=== PATIENT | female | born 1960 | race Caucasian/White ===

== ENCOUNTER 2020-07-17 13:17 | Outpatient (CLI) | payer OTHER, SELFPAY ==
--- NOTE | 2020-07-17 15:00 | NEURO_ITS ---
Impression: # Complains of upper extremity pain, left more than right. # No Carpal Tunnel Syndrome. # No ulnar neuropathy. # Cross innervation median to ulnar noted. # Normal needle/EMG exam. Nerve Conduction Studies Anti Sensory Summary Table Stim Site NR Peak (ms) P-T Amp (?V) Site1 Site2 Delta-P (ms) Dist (cm) Myke (m/s) Left Median Anti Sensory (2-3nd Digit) Wrist 2.9 87.2 Wrist 2-3nd Digit 2.9 14.0 48 Wrist 2.8 79.3 Wrist 2-3nd Digit 2.9 14.0 48 Right Median Anti Sensory (2-3nd Digit) Wrist 3.3 52.5 Wrist 2-3nd Digit 3.3 14.0 42 Wrist 3.3 85.9 Wrist 2-3nd Digit 3.3 14.0 42 Left Radial Anti Sensory (Base 1st Digit) Wrist 1.8 57.2 Wrist Base 1st Digit 1.8 0.0 Right Radial Anti Sensory (Base 1st Digit) Wrist 1.9 26.2 Wrist Base 1st Digit 1.9 0.0 Left Ulnar Anti Sensory (5th Digit) Wrist 2.3 22.8 Wrist 5th Digit 2.3 14.0 61 Right Ulnar Anti Sensory (5th Digit) Wrist 2.2 42.2 Wrist 5th Digit 2.2 14.0 64 Motor Summary Table Stim Site NR Onset (ms) O-P Amp (mV) Site1 Site2 Delta-0 (ms) Dist (cm) Myke (m/s) Left Median Motor (Abd Poll Brev) Wrist 2.9 4.6 Elbow Wrist 4.2 26.0 62 Elbow 7.1 3.1 Right Median Motor (Abd Poll Brev) Wrist 3.3 1.6 Elbow Wrist 4.9 27.0 55 Elbow 8.2 0.8 ELB/ADM Wrist 0.2 0.0 ELB/ADM 3.1 2.6 Left Ulnar Motor (Abd Dig Minimi) Wrist 2.6 6.8 A Elbow Wrist 4.4 27.0 61 A Elbow 7.0 7.2 Right Ulnar Motor (Abd Dig Minimi) Wrist 2.7 6.5 A Elbow Wrist 4.7 27.0 57 A Elbow 7.4 5.2 B Elbow Wrist 1.8 0.0 B Elbow 0.9 6.3 F Wave Studies NR F-Lat (ms) L-R F-Lat (ms) Left Median (Mrkrs) (Abd Poll Brev) 24.64 1.32 Right Median (Mrkrs) (Abd Poll Brev) 25.96 1.32 Left Ulnar (Mrkrs) (Abd Dig Min) 25.86 0.11 Right Ulnar (Mrkrs) (Abd Dig Min) 25.75 0.11 EMG Side Muscle Nerve Root Ins Act Fibs Amp Dur Recrt Comment Right 1stDorInt Ulnar C8-T1 Nml Nml Nml Nml Nml Right Ext Indicis Radial (Post Int) C7-8 Nml Nml Nml Nml Nml Right Ext Digitorum Radial (Post Int) C7-8 Nml Nml Nml Nml Nml Right BrachioRad Radial C5-6 Nml Nml Nml Nml Nml Right PronatorTeres Median C6-7 Nml Nml Nml Nml Nml Right Abd Poll Brev Median C8-T1 Nml Nml Nml Nml Nml Left 1stDorInt Ulnar C8-T1 Nml Nml Nml Nml Nml Left Ext Indicis Radial (Post Int) C7-8 Nml Nml Nml Nml Nml Left Ext Digitorum Radial (Post Int) C7-8 Nml Nml Nml Nml Nml Left BrachioRad Radial C5-6 Nml Nml Nml Nml Nml Left PronatorTeres Median C6-7 Nml Nml Nml Nml Nml Left Abd Poll Brev Median C8-T1 Nml Nml Nml Nml Nml MTDD
== END 2020-07-17 13:18 | disposition home or self-care (01) ==
PROVIDERS: PCP Family Medicine; Visit Provider Physician Assistant
DX: M79.641 Pain in right hand (principal); M79.642 Pain in left hand
CPT/HCPCS: 95886; 95911

== ENCOUNTER 2021-05-06 12:30 | Outpatient (RCR) | payer OTHER, SELFPAY ==
--- NOTE | 2021-04-21 16:08 | PTOPEVAL ---
Thank you for referring Diane Sykes to [facility].? The patient is scheduled to be seen for therapy?1 x/week for 5 weeks. Please review, sign, date and return this plan of care JANELL. I agree with and certify that the following plan of care is medically necessary. Referring Physician Date Attending Provider: Pcao Murphy MD Diagnosis cervicalgia and left UE pain Onset 1.5 yrs Subjective Information She has noticed increased left Query Text:As Reported By Patient/ UE pain at all times. She c/o Family pins/needles of left UE to wrist. She purchased a wrist splint but the symptoms increased. 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 She reports pain and difficulty with lifting with left UE, sleeping, daily task. She reports the pain limits her shoulder motion. She is limited with prolonged UE use or overhead task. She performs hip and leg stretches for her back. Diagnostic Tests X-Rays For This Problem Yes: no abnormalities of neck noted Pain Assessment Left Arm(s) Reported Pain Level 6 Pain Description Burning,Numbness,Radiating, Tightness,Tingling Pain Frequency Chronic,Continuous Lowest Pain Intensity 3 Greatest Pain Intensity 8 Pain Aggravating Factors ADL's,Exercise/Activity, Lifting,Prolonged Position Pain Behaviors Anxious Cervical and Lumbar ROM Cervical ROM Cervical Flexion (0-60) 50:Active in Degrees Cervical Extension (0-70) 50:Active in Degrees Cervical Lateral Flexion Right (0-50) 25:Active in Degrees Cervical Lateral Flexion Left (0-50) 25:Active in Degrees Cervical Rotation Right (0-90) 38:Active in Degrees Cervical Rotation Left (0-90) 35:Active in Degrees Cervical ROM Comments tightness with all neck motions Upper Extremity Range of Motion General Upper Extremity Range of Motion Reason Not Measured WNL/Left,WNL/Right Cervical and Lumbar Muscle Testing Cervical Muscle Testing Cervical Flexion 4 Good Cervical Extension 4 Good Cervical Lateral Flexion Right 4 Good Cervical Lateral Flexion Left 4 Good Deep Cervical Flexion 5 sec with poor control Cervical Strength no pain with cervical
--- NOTE | 2021-05-06 13:32 | PCPTNOTE ---
Pt has canceled her remaining visits due to f/u with Md and continued UE symptoms. Will plan to DC her chart.
--- NOTE | 2021-05-09 10:28 | PCPTNOTE ---
Admitting Provider: Attending Provider: Paco Murphy MD Patient:Diane Sykes Date of :1960 Physical Therapy Discharge Summary Patient has not returned for any further treatments since 05/06/2021, therefore she will be discharged at this time. She called and requested her additional therapy visits to be cancelled due to continued symptoms and planned to follow with doctor. Patient?s initial visit was on 04/21/2021 14:00 and she had a total of 3 visits. The goals have been not met due to limited therapy visits. Thank you for referring this patient to [facility]. Please review, sign, date and return this discharge summary JANELL. I have been updated about the patient's current status and I agree with discharge from the above service at this time. Referring Physician Date
== END 2021-05-12 09:14 | disposition home or self-care (01) ==
LOC: ANHPT 12:30
PROVIDERS: PCP Family Medicine; Visit Provider Orthopaedic Surgery
DX: M54.2 Cervicalgia (principal); M79.602 Pain in left arm
CPT/HCPCS: 97014; 97110; 97140; 97162; G0283

== ENCOUNTER → 2022-05-25 08:48 | Outpatient (CLI) | payer MEDICARE, MEDICAID, SELFPAY ==
--- NOTE | ~2022-05-25 | MR_ITS ---
MRI of the left knee Clinical history: Pain Technique: Coronal proton density and proton density-weighted images, sagittal proton-density and T2 fat-sat images, and axial proton-density fat-saturated images were acquired. Findings: Anterior and posterior cruciate ligament are intact. Medial collateral ligament and the lat eral collateral ligament complex are intact. Popliteus tendon is intact. There is probable vertical tear at the posterior root of the medial meniscus, with additional intrasu bstance degenerative signal of the medial meniscus. No lateral meniscal tear identified. There is moderate chondral thinning at the medial joint line with mild reactive marrow edema at the m edial corner of the medial tibial plateau. Articular cartilage in the lateral compartment and along t he femoral trochlea is intact. There is focal moderate chondromalacia of the patellar apex with focal subchondral reactive marrow edema. Extensor mechanism is intact. Moderate to large joint effusion is present. No Alfaro's cyst. IMPRESSION: Vertical tear to posterior to the medial meniscus. Mild degenerative changes/chondromalacia at the medial joint line and of the patella, as detailed abo ve. Moderate to large joint effusion. Reviewed, dictated and finalized at location . [employer] IMPRESSION: Vertical tear to posterior to the medial meniscus. Mild degenerative changes/chondromalacia at the medial joint line and of the pa tella, as detailed above. Moderate to large joint effusion.
== END ==
PROVIDERS: PCP Orthopaedic Surgery; Visit Provider Orthopaedic Surgery
DX: M25.562 Pain in left knee (principal); S83.242A Other tear of medial meniscus, current injury, left knee, initial encounter; X58.XXXA Exposure to other specified factors, initial encounter
CPT/HCPCS: 73721

== ENCOUNTER 2022-06-02 00:46 | Day surgery (SDC) | payer MEDICARE, MEDICAID, SELFPAY ==
[2022-05-27 10:23] VITALS: BMI 29.2
--- NOTE | 2022-05-27 10:31 | PC.NURSE ---
Report to the Outpatient Waiting Room, entrance under the green pavilion located off [facility], at time 1030 on date 06/02/22. Planned Procedure Time: 1230. Time changes happen often and if your time is changed the preop area will call you the afternoon before. - You and your visitor will be asked to self-screen and do not enter if you have any COVID symptoms. - Only one visitor is requested with a max of two and NO children visitors are allowed at this time. - The patient visitor may be requested to leave or wait in car when not with patient due to distancing restrictions. - A mask is REQUIRED within the hospital. Patients may have clear liquids (water, carbonated beverages, clear teas, apple juice) until 3 hours prior to surgery with a maximum of 20 ounces. - No food from midnight until time of surgery Take the following medications with a SIP of water the morning of surgery: DIGOXIN, METOPROLOL, PAIN PILL/BACLOFEN IF NEEDED Medications to discontinue per physician: VITAMINS/SUPPLEMENTS Date to take last dose: 05/29/22 Please no make-up, nail malay, hairspray, perfume, deodorant, or body powder the day of surgery. No jewelry (including any body piercings) or valuables the day of surgery, leave them at home. Please take a shower or bath the night before, or the morning of, surgery with an antibacterial soap. Wear comfortable, loose fitting clothing. - Jewelry must be removed prior to entering the operating room. Rings and piercings that are not removed may be cut off. - The hospital will not accept responsibility for valuables. - Please leave all valuables, including medications, at home the day of surgery. If you are going home after surgery, a licensed coal tram driver must drive you home. - NO public transportation without another adult if you receive anesthesia. - We recommend that an adult stay with you for 24 hours following discharge. - We also recommend that you do not drive, make important decision, drink alcoholic beverages, or take any drugs that were not prescribed by your health care provider for at least 24 hours after your discharge time. Follow any additional instructions given to you from your surgeon. If you or anyone in your household have experienced Covid symptoms in the past week, please notify your surgeon or the nurse liaison at the phone number below for possible testing. Telephone instructions given to PT - ANNA STRANGE and asked if any additional questions and then verbalized understanding. Patient advised to call surgeon office or pre surgery nurse liaison [phone] if any additional questions.
[2022-06-02] VITALS (8 sets, daily range): BP systolic 131–156; BP diastolic 66–85; PULSE 60–84; RESP 12–18; TEMP 36.6–36.9; O2SAT 97–100
--- NOTE | 2022-06-02 10:24 | ECG_ITS ---
Measurements Intervals Warren Rate: 58 P: -1 CA: 156 QRS: -7 QRSD: 92 T: -4 QT: 424 QTc: 418 Interpretive Statements SINUS BRADYCARDIA NONSPECIFIC ST AND T-WAVE ABNORMALITY ABNORMAL ECG NO PREVIOUS ECG AVAILABLE FOR COMPARISON Electronically Signed On 06-02-2022 15:35:09 [facility] by Luis Rivera M.D.
[2022-06-02] MEDS: KETOROLAC 15 MG/ML VIAL (*BKC) IV PUSH (11:19)
--- NOTE | 2022-06-02 11:29 | WPDHPUPDATE1 ---
History and Physical Update Update Date/Time: 06/02/22 11:29 History and Physical has been reviewed, including an updated exam of the patient. There are NO changes in the patient's condition. Risks, benefits, and alternatives have been discussed and questions answered. Patient agrees to proceed with procedure.
[2022-06-02] MEDS: SCOPOLAMINE 1.5 MG PATCH TRANSDERM (12:00)
--- NOTE | 2022-06-02 12:02 | WPDANESEPPF ---
Anes - Initial Pre Proc Eval Procedure: Operation Date: 06/02/22 12:30 Proposed Procedures p Left Knee Arthroscopy with Meniscectomy - Paco Murphy MD Date/Time: 06/02/22 12:02 Surgeon: Paco Murphy MD Pre Op Diagnosis: left knee medial meniscal tear Patient Data Age: 61 Gender: F Height: 1.57 m Weight: 72.6 kg Last Vital Signs Temp 36.9 C 06/02/22 10:57 Pulse 60 06/02/22 10:57 Resp 16 06/02/22 10:57 BP 148/77 H 06/02/22 10:57 Pulse Ox 100 06/02/22 10:57 O2 Del Method Room Air 06/02/22 10:57 Allergies Allergy/AdvReac Type Severity Reaction Status Date / Time gabapentin Allergy Severe disorientat Verified 06/02/22 10:46 ion morphine AdvReac Intermediate Nausea and Verified 06/02/22 10:46 Vomiting codeine AdvReac Unknown Nausea Verified 06/02/22 10:46 cortisone AdvReac Unknown Nausea Verified 06/02/22 10:46 erythromycin base AdvReac Unknown Nausea Verified 06/02/22 10:46 Penicillins AdvReac Unknown Nausea Verified 06/02/22 10:46 Home Medications Medication Instructions Recorded Confirmed Type baclofen 10 mg tablet 10 mg PO TID 06/15/19 06/02/22 History cholecalciferol (vitamin D3) 50 2,000 unit PO DAILY 06/15/19 06/02/22 History mcg (2,000 unit) tablet hydrocodone 5 mg-acetaminophen 325 1 tablet PO Q6H PRN Pain 06/15/19 06/02/22 History mg tablet ascorbic acid (vitamin C) 500 mg 500 mg PO DAILY 08/01/19 06/02/22 History capsule aspirin 81 mg tablet,delayed 81 mg PO DAILY 08/01/19 06/02/22 History release (Adult Low Dose Aspirin) biotin 10,000 mcg capsule 10,000 mcg PO DAILY 08/01/19 06/02/22 History mecobalamin (vitamin B12) 1,000 1,000 mcg PO DAILY 08/01/19 06/02/22 History mcg chewable tablet vitamin E (dl, acetate) 180 mg 400 unit PO DAILY 08/01/19 06/02/22 History (400 unit) capsule eqnswlze-lhzigm-auuae extract 5 1 cap PO DAILY 01/17/20 06/02/22 History mg-6 mg-150 mg capsule (Fruit and Vegetable Daily) lansoprazole 30 mg capsule,delayed 30 mg PO DAILY #90 caps 03/10/21 06/02/22 Rx release digoxin 125 mcg (0.125 mg) tablet 125 mcg PO DAILY #90 tabs 10/01/21 06/02/22 Rx (Digox) metoprolol tartrate 50 mg tablet 25 mg PO BID #180 tabs 11/30/21 06/02/22 Rx atorvastatin 40 mg tablet See Rx Instructions .Route 05/28/22 06/02/22 Rx .COMPLEX #90 tabs Laboratory Tests 06/02/22 11:10 Digoxin Pending Patient hx anesthesia problems: none Family hx anesthesia problems: none Results Review: All pre-operative results and documents have been reviewed as part of the pre-operative evaluation. [facility] Past Medical History Medical History (Updated 05/26/22 @ 11:09 by Paco Murphy MD) Anxiety Chronic back pain Chronic left SI joint pain Congenital fusion of sacroiliac joint De Quervain's tenosynovitis, right DJD (degenerative joint disease), lumbar Heartburn Herniated disc Hormone replacement therapy Hyperlipidemia Hypertension Lumbosacral radiculopathy due to degenerative joint disease of spine Pain in left wrist Primary hypertension SVT (supraventricular tachycardia) Tear of medial meniscus of left knee Surgical History Surgical History H/O section 1977,1979,1984 H/O: hysterectomy 1991 History of abdominoplasty 2001 History of carpal tunnel release 1996 History of foot surgery Hammer toe 1994 History of sacrocolpopexy 07/2016- History of tonsillectomy 1974 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istory Social History (Reviewed 05/26/22 @ 11:0
[2022-06-02] MEDS: ceFAZolin 2 GM/D5W 50 ML 2 GM/50 ML BAG IVPB (12:11)
[2022-06-02 12:15] LABS: Digoxin 0.5 ng/mL (0.8-2.0)
[2022-06-02] MEDS: LIDOCAINE HCL 1% PF 30 ML VIAL INFILTRATE (12:38)
[2022-06-02] MEDS: TRANEXAMIC ACID 1,000 MG/10 ML AMPUL 1000 MG INFILTRATE (12:49)
--- NOTE | 2022-06-02 13:22 | P.OP_ITS ---
Procedure Note - Detailed Date of Procedure 06/02/22 Pre-op Diagnosis left knee medial meniscal tear Post-op Diagnosis Other ( extensive synovitis left knee) Procedure Performed left knee arthroscopy with extensive synovectomy Surgeon Paco Murphy MD Anesthesia General Description of Procedure The patient was identified and proper site identified and she was taken to the operating room, transferred to the OR table placing her supine taking care to pad the torso and extremities. After general anesthetic induction and intubation, a nonsterile tourniquet was placed high on the left thigh. The left lower extremity was positioned, prepped and draped in usual sterile fashion. 10 cc of 1% lidocaine was injected into the subcutaneous tissue in the area of the portals at start of the procedure, and an additional 10 at the end. The portals were established and the arthroscopy was carried out. The lateral articular and meniscal cartilage was inspected and noted be in good condition. Anterior posterior cruciate ligaments were in continuity. Grade 2 and early grade 3 degenerative changes noted on the undersurface of the patella. Femoral trochlea was in fairly decent shape. Medially there was extensive grade 3 changes of the weight-bearing portion medial femoral condyle and grade 2 and th ree changes in the central part of the tibial plateau. Medial meniscus was probed and noted to be stable. Adjacent to the posterior root of the medial meniscus was a nodule of inflamed synovial tissue. The notch and medial gutter as well as the anterior portion of the medial compartment all had abundant inflamed synovium. The extremity was exsanguinated the tourniquet was inflated to 300 millimeters of mercury remaining up for about 16 minutes. The notch, posterior portion of the medial compartment at the meniscal root, gutters and anterior portion medial compartment were all systematically debrided with the shaver removing the inflamed synovial tissue. The knee was flushed with a copious amount of arthroscopic fluid and equipment was removed. The knee was injected with 1 gram of tranexamic acid. Portals were closed with three O nylon suture and a sterile dressing was applied. Tourniquet was released. She tolerated the procedure well, was awakened, extubated and taken to recovery area in stable condition. There were no known intraoperative complications. Estimated blood loss was negligible; she received perioperative antibiotics. Estimated Blood Loss 10 Tourniquet Time 16 Drains No Packing No Pathology None sent Complications No immediate complications Condition Stable Disposition PACU [facility] Billing Surgery - Charge Forward: Surgery Billing ([id number])
[2022-06-02] MEDS: fentaNYL CITRATE INJ (*CRX) 100 MCG/2 ML VIAL 25 MCG IV PUSH ×4 (13:24→13:51)
--- NOTE | 2022-06-02 13:43 | SUR.PHASEI ---
1343 - family member updated
[2022-06-02] MEDS: LACTATED RINGERS 1,000 ML 30 ML IV CONT (14:07)
[2022-06-02] MEDS: oxyCODONE HCL (*CRX) 5 MG TAB IR PO (14:25)
== END 2022-06-02 15:33 | disposition home or self-care (01) ==
PROVIDERS: Anesthesiology; PCP Family Medicine; Visit Provider Orthopaedic Surgery
PROC: (CPT 29870; principal; 2022-06-02 12:30)
DX: M65.862 Other synovitis and tenosynovitis, left lower leg (principal); I10 Essential (primary) hypertension; E78.5 Hyperlipidemia, unspecified; I47.1 Supraventricular tachycardia; G89.4 Chronic pain syndrome; Z87.891 Personal history of nicotine dependence; Z79.891 Long term (current) use of opiate analgesic; Z79.82 Long term (current) use of aspirin
CPT/HCPCS: 29875; 36415; 80162; 93005; A9270; J0690; J1100; J1170; J1885; J2250; J2405; J2704; J3010; J7120

== ENCOUNTER 2022-06-23 12:39 | Outpatient (CLI) | payer MEDICARE, MEDICAID, SELFPAY ==
--- NOTE | ~2022-06-23 | US_ITS ---
EXAMINATION: US venous doppler [facility] DATE: 06/23/2022 13:30 INDICATION: Other specified soft tissue disorders, left lower limb swelling TECHNIQUE: Duncan scale images without and with compression and Doppler images of the left lower extrem ity veins were obtained. COMPARISON: None FINDINGS: The left common femoral vein, profunda femoral vein, femoral vein, popliteal vein, peroneal trunk, posterior tibial veins, and greater saphenous vein are patent. IMPRESSION: 1. Patent left lower extremity veins. No evidence of deep venous thrombosis. Reviewed, dictated and finalized at location L. [employer]
== END 2022-06-23 12:40 | disposition home or self-care (01) ==
LOC: ANHIMG 12:41
PROVIDERS: PCP Family Medicine; Visit Provider Family Medicine
DX: M79.89 Other specified soft tissue disorders (principal); Z98.890 Other specified postprocedural states
CPT/HCPCS: 93971

== ENCOUNTER 2022-07-02 09:00 | Outpatient (RCR) | payer MEDICARE, MEDICAID, SELFPAY ==
--- NOTE | 2022-06-09 16:28 | PTOPEVAL1 ---
Assessment and note entered by Yair Messina, PT Evaluation Information Assessment Status Evaluation Diagnosis L knee scope 06/02/22 Subjective Information Patient reports since early April she has been having L knee pain causing her to see her doctor. After steroids and some knee aspirations she got an MRI that showed probable meniscal damage. Patient elected for a L knee scope. Patient reports that no meniscal damage was seen endoscopy and it is probably a RA issue with a sample of her fluid being drawn to check for inflammation markers. Patient comes in with crutches which she reports she was using prior to the surgery. Reported Pain Level Pain Score 5: Self Report Additional Pain Score Comments Patient reports faithfully icing and elevating her leg Assessment PT Clinical Summary Jackie is a 61 year old female coming to the clinic for post op range of motion L knee 0-28-45 degrees and strengthening of the L knee 3+/5 for knee extension, 4-/5 for knee flexion, and to progress away from the crutches. Physical therapy will work on improving her range of motion and strength while doing modalities for pain control and education on gait training. Plan of Care Interventions Electrical Stimulation,Gait Training,Hot Pack/Cold Pack,Manual Therapy,Neuro Re-education,Patient/ Caregiver Education,Therapeutic Activities, Therapeutic Exercise,Ultrasound PT Services Indicated Yes Treatment Frequency and 2x/wk for 4 weeks Duration These treatments will address the objective and functional deficits as defined above. The patient will be advanced safely and appropriately in order for the patient to progress towards his/her prior level of function. Additional exercises will be introduced and as well as a comprehensive home exercise program upon discharge, if needed, ?to ensure carryover of functional gains achieved in the clinic. This treatment plan has been reviewed and agreement upon by the patient.
--- NOTE | 2022-07-02 10:46 | PTOPDC ---
Assessment and note entered by Yair Messina, PT Evaluation Information Assessment Status Discharge Diagnosis L knee scope 06/02/23 Subjective Information Patient reports a lot of improvement in the last week. Also reports that she saw Dr. Murphy yesterday and he informed her it will probably be a slow heal, but he is happy with the progress she has made so far. Going to [place] this weekend and will be down there for 10 days. Reported Pain Level Pain Score 3: Self Report Assessment PT Clinical Summary Jackie is a 61 year old female coming to the clinic for L knee strengthening and range of motion following a L knee scope on 06/02/22. She has attended 7 visits and met her strengthening and exercise goals. She still needs to work on edema and range of motion, but only missing goals by a few degrees. She will be discharged to her new [facility] as she will be out of town for close to the next 2 weeks and if still having an issue afterwards she reports she can always ask for more therapy from the MD. Plan of Care PT Services Indicated No Treatment Frequency and discharge from skilled physical therapy. Duration
== END 2022-08-31 08:36 | disposition home or self-care (01) ==
LOC: ANHPT 09:00
PROVIDERS: PCP Family Medicine; Visit Provider Orthopaedic Surgery
DX: Z48.89 Encounter for other specified surgical aftercare (principal); Z98.890 Other specified postprocedural states
CPT/HCPCS: 97014; 97110; 97112; 97116; 97161; G0283

== ENCOUNTER 2022-08-03 01:12 | Day surgery (SDC) | payer MEDICARE, MEDICAID, SELFPAY ==
[2022-07-21 14:11] VITALS: BMI 28.4
--- NOTE | 2022-07-21 14:17 | SUR.PREOP ---
Report to the Outpatient Waiting Room, entrance under the green pavilion located off [facility], at time _0900 on date _08/03/22 . Planned Procedure TimE. 1100 Time changes happen often and if your time is changed the preop area will call you the afternoon before. - You and your visitor will be asked to self-screen and do not enter if you have any COVID symptoms. - Only one visitor is requested with a max of two and NO children visitors are allowed at this time. - The patient visitor may be requested to leave or wait in car when not with patient due to distancing restrictions. - A mask is optional within the hospital at this time. Patients may have clear liquids (water, carbonated beverages, clear teas, apple juice) until 3 hours prior to surgery with a maximum of 20 ounces. - No food from midnight until time of surgery - Infants may have breast milk until 4 hours before surgery, formula 6 hours prior to surgery. - Children will be allowed to drink immediately following surgery. If applicable, please bring a bottle or sippy cup to assist with drinking. Juice, water, soda, and popsicles are readily available. For infants on formula, please bring formula the day of surgery. Pacifiers are allowed. Take the following medications with a SIP of water the morning of surgery: __METOPROLOL,DULOXETINE,DIGOXIN,NORCO IF NEEDED DO NOT STOP ANY OF YOUR OTHER PRESCRIPTION MEDICATIONS PRIOR TO SURGERY ?EXCEPT THE FOLLOWING Medications to discontinue per physician ___VITAMIN SUPPLEMENTS Date to take last dose_07/31/22 Please no make-up, nail namibian, hairspray, perfume, deodorant, or body powder the day of surgery. No jewelry (including any body piercings) or valuables the day of surgery, leave them at home. Please take a shower or bath the night before, or the morning of, surgery with an antibacterial soap. Wear comfortable, loose fitting clothing. Children are encouraged to wear pajamas. - Jewelry must be removed prior to entering the operating room. Rings and piercings that are not removed may be cut off. - The hospital will not accept responsibility for valuables. - Please leave all valuables, including medications, at home the day of surgery. If you are going home after surgery, a licensed driver helper must drive you home. - NO public transportation without another adult if you receive anesthesia. - We recommend that an adult stay with you for 24 hours following discharge. - We also recommend that you do not drive, make important decision, drink alcoholic beverages, or take any drugs that were not prescribed by your health care provider for at least 24 hours after your discharge time. For Pediatric surgeries, we recommend two adults accompany the child home. Follow any additional instructions given to you from your surgeon. If you or anyone in your household have experienced Covid symptoms in the past week, please notify your surgeon or the nurse liaison at the phone number below for possible testing. Telephone instructions given to SEBAS STRANGE and asked if any additional questions and then verbalized understanding. Patient advised to call surgeon office or pre surgery nurse liaison [phone] if any additional questions.
--- NOTE | 2022-08-02 07:39 | WPDANESEPPF ---
Anes - Initial Pre Proc Eval Procedure: Operation Date: 08/03/22 11:00 Proposed Procedures p Right First Dorsal Compartment Release - Paco Murphy MD Date/Time: 08/02/22 07:39 Surgeon: Paco Murphy MD Pre Op Diagnosis: de quervain's right wrist Patient Data Age: 61 Gender: F Height: 1.57 m Weight: 70.45 kg Allergies Allergy/AdvReac Type Severity Reaction Status Date / Time gabapentin Allergy Severe disorientat Verified 07/29/22 08:25 ion morphine AdvReac Intermediate Nausea and Verified 07/29/22 08:25 Vomiting codeine AdvReac Mild Nausea Verified 07/29/22 08:25 cortisone AdvReac Mild Nausea Verified 07/29/22 08:25 erythromycin base AdvReac Mild Nausea Verified 07/29/22 08:25 Penicillins AdvReac Mild Nausea Verified 07/29/22 08:25 Home Medications Medication Instructions Recorded Confirmed Type baclofen 10 mg tablet 10 mg PO TID 06/15/19 07/29/22 History cholecalciferol (vitamin D3) 50 2,000 unit PO DAILY 06/15/19 07/29/22 History mcg (2,000 unit) tablet hydrocodone 5 mg-acetaminophen 325 2 tablet PO TID PRN Pain 06/15/19 07/29/22 History mg tablet ascorbic acid (vitamin C) 500 mg 500 mg PO DAILY 08/01/19 07/29/22 History capsule aspirin 81 mg tablet,delayed 81 mg PO DAILY 08/01/19 07/29/22 History release (Adult Low Dose Aspirin) biotin 10,000 mcg capsule 10,000 mcg PO DAILY 08/01/19 07/29/22 History mecobalamin (vitamin B12) 1,000 1,000 mcg PO DAILY 08/01/19 07/29/22 History mcg chewable tablet vitamin E (dl, acetate) 180 mg 400 unit PO DAILY 08/01/19 07/29/22 History (400 unit) capsule syksldet-jimojq-dwqdm extract 5 1 cap PO DAILY 01/17/20 07/29/22 History mg-6 mg-150 mg capsule (Fruit and Vegetable Daily) atorvastatin 40 mg tablet See Rx Instructions .Route 06/17/22 07/29/22 Rx .COMPLEX #90 tabs digoxin 125 mcg (0.125 mg) tablet 125 mcg PO DAILY #90 tabs 01/04/23 02/15/23 Rx (Digox) lansoprazole 30 mg capsule,delayed 30 mg PO DAILY #90 caps 06/17/22 07/29/22 Rx release duloxetine 30 mg capsule,delayed 60 mg PO DAILY 07/01/22 07/29/22 History release (Cymbalta) metoprolol tartrate 50 mg tablet 50 mg PO DAILY 07/21/22 07/29/22 History Patient hx anesthesia problems: none Family hx anesthesia problems: none Results Review: All pre-operative results and documents have been reviewed as part of the pre-operative evaluation. [facility] Past Medical History Medical History Anxiety Chronic back pain Chronic left SI joint pain Chronic narcotic use Congenital fusion of sacroiliac joint De Quervain's tenosynovitis, right DJD (degenerative joint disease), lumbar Heartburn Herniated disc Hormone replacement therapy Hyperlipidemia Hypertension Lumbosacral radiculopathy due to degenerative joint disease of spine Pain in left wrist Primary hypertension SVT (supraventricular tachycardia) Tear of medial meniscus of left knee Surgical History Surgical History H/O arthroscopic knee surgery H/O section 1977,1979,1984 H/O: hysterectomy 1991 History of abdominoplasty 2001 History of carpal tunnel release 1996 History of foot surgery Hammer toe 1994 History of sacrocolpopexy 07/2016- History of tonsillectomy 1974 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
[2022-08-03 09:06] VITALS: BP 126/87; PULSE 58; RESP 16; TEMP 36.4; O2SAT 100
[2022-08-03] MEDS: LACTATED RINGERS 1,000 ML 30 ML IV CONT (09:35)
[2022-08-03] MEDS: ACETAMINOPHEN 500 MG TABLET 1000 MG PO (09:38)
[2022-08-03] MEDS: KETOROLAC 15 MG/ML VIAL (*BKC) IV PUSH (09:39)
[2022-08-03] MEDS: SCOPOLAMINE 1.5 MG PATCH TRANSDERM (09:41)
--- NOTE | 2022-08-03 10:06 | WPDHPUPDATE1 ---
History and Physical Update Update Date/Time: 08/03/22 10:06 History and Physical has been reviewed, including an updated exam of the patient. There are NO changes in the patient's condition. Risks, benefits, and alternatives have been discussed and questions answered. Patient agrees to proceed with procedure.
[2022-08-03] MEDS: ceFAZolin 2 GM/D5W 50 ML 2 GM/50 ML BAG IVPB (10:44)
[2022-08-03] MEDS: BUPIVACAINE/EPINEPHRINE 0.5% 10 ML VIAL 5 ML INFILTRATE (11:06)
[2022-08-03 11:15] VITALS: BP 133/62; PULSE 60; RESP 12; O2SAT 100
--- NOTE | 2022-08-03 11:17 | W.PM.PROC2 ---
Procedure Note - Detailed Date of Procedure 08/03/22 Pre-op Diagnosis de quervain's right wrist Post-op Diagnosis Same Procedure Performed Right first dorsal compartment release Surgeon Paco Murphy MD Anesthesia MAC and Local Description of Procedure The patient was identified and proper site identified. She was taken to the operating room and transferred to the OR table placing her supine taking care to pad the torso and extremities. A nonsterile tourniquet was placed high on the right arm which was prepped and draped in usual sterile fashion. She was administered IV sedation. Several cc of 0.5% Marcaine and epinephrine solution was infiltrated into the subcutaneous tissue over the right radial styloid. The extremity was exsanguinated and the tourniquet was inflated to 250 mmHg remaining up for approximately seven minutes. A longitudinal incision was made over the radial styloid and the subcutaneous tissue was bluntly dissected protecting neurovascular structures. The first dorsal compartment was identified and then transected in line with the tendons releasing the contents. The tendons were delivered into the wound to verify the adequacy of the release. The wound was irrigated with sterile saline. Hemostasis was carried out. Skin edges were reapproximated with 4-0 Prolene suture and Steri-Strips. Sterile dressing was applied. Tourniquet was released. She tolerated procedure well and was transferred back to the cart and taken to the recovery area in stable condition. There were no known intraoperative complications. Estimated blood loss was []. Perioperative antibiotics were administered. Estimated Blood Loss 1 Tourniquet Time 7 Drains No Packing No Pathology None sent Complications No immediate complications Condition Critical Disposition PACU [facility] Billing Surgery - Charge Forward: Surgery Billing ([id number])
[2022-08-03 11:40] VITALS: BP 132/65; PULSE 47; RESP 12
[2022-08-03 12:05] VITALS: BP 130/61; PULSE 48; RESP 12
== END 2022-08-03 13:25 | disposition home or self-care (01) ==
PROVIDERS: PCP Family Medicine; Visit Provider Orthopaedic Surgery
PROC: (CPT 25000; principal; 2022-08-03 11:00)
DX: M65.4 Radial styloid tenosynovitis [de Quervain] (principal); I10 Essential (primary) hypertension; E78.5 Hyperlipidemia, unspecified; I47.1 Supraventricular tachycardia; F41.9 Anxiety disorder, unspecified; Z87.891 Personal history of nicotine dependence
CPT/HCPCS: 25000; A9270; J0690; J1885; J2250; J2405; J2704; J3010; J7120

== ENCOUNTER 2022-11-05 06:22 | Day surgery (SDC) | payer MEDICARE, MEDICAID, SELFPAY ==
[2022-10-28 12:33] VITALS: BMI 28.6
--- NOTE | 2022-11-04 15:15 | PM.HPGS ---
History of Present Illness History of Present Illness Consent: Risks, benefits, and alternatives have been discussed and questions answered. Patient agrees to proceed with procedure. Chief complaint: Neoplasm Screening Narrative: Diane Sykes is a 62 year old female who is referred for colon cancer screening. she has had polyps removed in the past. Her last colonoscopy was 5 years ago. Review of Systems Review of Systems: All systems reviewed & are unremarkable except as noted in HPI and below PMFSH Past Medical History Medical History Anxiety Chronic back pain Chronic left SI joint pain Chronic narcotic use Congenital fusion of sacroiliac joint De Quervain's tenosynovitis, right First dorsal compartment release, 08/03/[address] Jeffrey LUNA (degenerative joint disease), lumbar Heartburn Herniated disc Hormone replacement therapy Hyperlipidemia Hypertension Lumbosacral radiculopathy due to degenerative joint disease of spine Pain in left wrist Primary hypertension SVT (supraventricular tachycardia) Tear of medial meniscus of left knee Surgical History Surgical History H/O arthroscopic knee surgery H/O section 1977,1979,1984 H/O: hysterectomy 1991 History of abdominoplasty 2001 History of carpal tunnel release 1996 History of foot surgery Hammer toe 1994 History of sacrocolpopexy 07/2016- History of tonsillectomy 1974 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istory Social History Smoking packs per day: 1 Smoking cigarettes per day: 20.0 Years smoked: 30 Smoking pack-years: 30.00 Smoking status: Former smoker Tobacco type: cigarettes Second hand tobacco smoke exposure: No Smoking end date: 06/14/05 Additional smoking assessment comments: cigarettes 1ppd x30 years Alcohol intake: current Alcohol use details: occassionally Substance use: never Substance use type: does not use Other substance usage details: PATIENT GETS THIS FROM PAIN MANAGEMENT. Lack of Transportation: No Lack of Food: Never True Current Housing: I Have Housing Concerned About Future Housing: No Difficulty Paying Gas/Electric Bills: No Difficulty Paying for Meds: No Currently Unemployed: No Education: Bachelor's Degree Difficulty w/ Childcare or Family Care: No Living arrangements: alone Additional living arrangements comments: Spouse Occupation/Education: unemployed Gender identity (if verbalized by the patient): Female Spiritual care concerns: No Meds Home Medications and Allergies Home Medications Medication Instructions Recorded Confirmed Type baclofen 10 mg tablet 10 mg PO TID 06/15/19 11/05/22 History cholecalciferol (vitamin D3) 50 2,000 unit PO DAILY 06/15/19 11/05/22 History mcg (2,000 unit) tablet hydrocodone 5 mg-acetaminophen 325 2 tablet PO TID PRN Pain 06/15/19 11/05/22 History mg tablet ascorbic acid (vitamin C) 500 mg 500 mg PO DAILY 08/01/19 11/05/22 History capsule aspirin 81 mg tablet,delayed 81 mg PO DAILY 08/01/19 11/05/22 History release (Adult Low Dose Aspirin) biotin 10,000 mcg capsule 10,000 mcg PO DAILY 08/01/19 11/05/22 History mecobalamin (vitamin B12) 1,000 1,000 mcg PO DAILY 08/01/19 11/05/22 History mcg chewable tablet vitamin E (dl, acetate) 180 mg 400 unit PO DAILY 08/01/19 11/05/22 History (400 unit) capsule digoxin 125 mcg (0.125 mg) tablet 125 mcg PO DAILY #90 tabs
[2022-11-05 07:48] VITALS: BP 173/93; PULSE 55; RESP 14; TEMP 36.6; O2SAT 99; BMI 28.3
[2022-11-05] MEDS: LACTATED RINGERS 1,000 ML 150 ML IV CONT (07:51)
[2022-11-05] MEDS: ONDANSETRON INJ 4 MG/2 ML VIAL IV PUSH (07:54)
--- NOTE | 2022-11-05 07:57 | WPDANESEPPF ---
Anes - Initial Pre Proc Eval Procedure: Operation Date: 11/05/22 08:30 Proposed Procedures p Screening Colonoscopy - Imtiaz Miller MD Date/Time: 11/05/22 07:57 Surgeon: Imtiaz Miller MD Pre Op Diagnosis: Neoplasm Screening Patient Data Age: 62 Gender: F Height: 1.57 m Weight: 70.2 kg Last Vital Signs Temp 36.6 C 11/05/22 07:48 Pulse 55 L 11/05/22 07:48 Resp 14 11/05/22 07:48 BP 173/93 H 11/05/22 07:48 Pulse Ox 99 11/05/22 07:48 O2 Del Method Room Air 11/05/22 07:48 Allergies Allergy/AdvReac Type Severity Reaction Status Date / Time gabapentin Allergy Severe disorientat Verified 11/05/22 07:43 ion morphine AdvReac Intermediate Nausea and Verified 11/05/22 07:43 Vomiting codeine AdvReac Mild Nausea Verified 11/05/22 07:43 cortisone AdvReac Mild Nausea Verified 11/05/22 07:43 erythromycin base AdvReac Mild Nausea Verified 11/05/22 07:43 Penicillins AdvReac Mild Nausea Verified 11/05/22 07:43 Home Medications Medication Instructions Recorded Confirmed Type baclofen 10 mg tablet 10 mg PO TID 06/15/19 11/05/22 History cholecalciferol (vitamin D3) 50 2,000 unit PO DAILY 06/15/19 11/05/22 History mcg (2,000 unit) tablet hydrocodone 5 mg-acetaminophen 325 2 tablet PO TID PRN Pain 06/15/19 11/05/22 History mg tablet ascorbic acid (vitamin C) 500 mg 500 mg PO DAILY 08/01/19 11/05/22 History capsule aspirin 81 mg tablet,delayed 81 mg PO DAILY 08/01/19 11/05/22 History release (Adult Low Dose Aspirin) biotin 10,000 mcg capsule 10,000 mcg PO DAILY 08/01/19 11/05/22 History mecobalamin (vitamin B12) 1,000 1,000 mcg PO DAILY 08/01/19 11/05/22 History mcg chewable tablet vitamin E (dl, acetate) 180 mg 400 unit PO DAILY 08/01/19 11/05/22 History (400 unit) capsule digoxin 125 mcg (0.125 mg) tablet 125 mcg PO DAILY #90 tabs 06/17/22 11/05/22 Rx (Digox) lansoprazole 30 mg capsule,delayed 30 mg PO DAILY #90 caps 06/17/22 11/05/22 Rx release metoprolol tartrate 50 mg tablet 50 mg PO DAILY 07/21/22 11/05/22 History hydroxyzine HCl 25 mg tablet 25 mg PO QID PRN Anxiety 08/03/22 11/05/22 History atorvastatin 40 mg tablet See Rx Instructions .Route 09/10/22 11/05/22 Rx .COMPLEX #100 tabs duloxetine 30 mg capsule,delayed 90 mg PO DAILY 10/14/22 11/05/22 History release (Cymbalta) Patient hx anesthesia problems: none Family hx anesthesia problems: none Results Review: All pre-operative results and documents have been reviewed as part of the pre-operative evaluation. [facility] Past Medical History Medical History Anxiety Chronic back pain Chronic left SI joint pain Chronic narcotic use Congenital fusion of sacroiliac joint De Quervain's tenosynovitis, right First dorsal compartment release, 08/03/[address] Jeffrey LUNA (degenerative joint disease), lumbar Heartburn Herniated disc Hormone replacement therapy Hyperlipidemia Hypertension Lumbosacral radiculopathy due to degenerative joint disease of spine Pain in left wrist Primary hypertension SVT (supraventricular tachycardia) Tear of medial meniscus of left knee Surgical History Surgical History H/O arthroscopic knee surgery H/O section 1977,1979,1984 H/O: hysterectomy 1991 History of abdominoplasty 2001 History of carpal tunnel release 1996 History of foot surgery Hammer toe 1994 History of sacrocolpopexy 07/2016- History of tonsillectomy 1974 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
[2022-11-05 08:52] VITALS: BP 122/66; PULSE 61; RESP 16; O2SAT 99
--- NOTE | 2022-11-05 09:01 | WPDANESPN ---
Anes - Prog Note Post-Op Date/Time: 11/05/22 09:01 Cardiovascular status: normal Respiratory status: normal Airway patency: baseline Mental status: baseline Post-Op hydration status: normal Vital Signs: Last Vital Signs Temp 36.6 C 11/05/22 07:48 Pulse 55 L 11/05/22 07:48 Resp 14 11/05/22 07:48 BP 173/93 H 11/05/22 07:48 Pulse Ox 99 11/05/22 07:48 O2 Del Method Room Air 11/05/22 07:48 Pain Score (VAS): 0/10 I/O: Intake & Output 11/04/22 11/05/22 11/05/22 23:59 07:59 15:59 Intake Total 500 Balance 500 Patient Feedback: Patient satisfied with anesthetic care.
[2022-11-05 09:02] VITALS: BP 118/69; PULSE 51; RESP 18; O2SAT 99
[2022-11-05 09:12] VITALS: BP 134/63; PULSE 50; RESP 18; O2SAT 99
== END 2022-11-05 09:31 | disposition home or self-care (01) ==
PROVIDERS: PCP Family Medicine; Visit Provider Internal Medicine Gastroenterology
PROC: 0DJD8ZZ Inspection of Lower Intestinal Tract, Via Natural or Artificial Opening Endoscopic (ICD-10-PCS; CPT 45378; principal; 2022-11-05 08:30)
DX: Z12.11 Encounter for screening for malignant neoplasm of colon (principal)
CPT/HCPCS: 45378

== ENCOUNTER 2023-02-11 14:00 | Outpatient (RCR) | payer MEDICARE, MEDICAID, SELFPAY ==
--- NOTE | 2023-02-03 15:03 | PTOPEVAL1 ---
Assessment and note entered by Yair Messina, PT Evaluation Information Assessment Status Evaluation Diagnosis sacroiliitis, low back pain, both knee pain Onset chronic Subjective Information Patient reports a history of chronic issues resulting in a SI fusion and L knee surgery. Patient is currently waiting on a Rheumatology appointment (03/29/23) and back injections beginning of Feb. Patient reports she is coming to therapy to get a HEP routine that she can do in the morning and throughout the day which will help keep her from getting too stiff. Patient reports the L knee pain is radiating up and down the L leg and that lumbar extension feels good. Also reports taking hydrocodone and baclofen for pain along with CBD oil, TENS unit, and ice and heat. She also states is her main problem is not wanting to be active because of the pain, but that she knows she needs to move. Reported Pain Level Pain Score 4: Self Report Assessment PT Clinical Summary Jackie is a 62 year old male coming into the clinic with a diagnosis of sacroiliitis, low back pain, BRETT knee pain. Patient has decreased knee extension, tight hamstrings, weakness in her core and decreased range of motion in her lumbar region . Physical therapy will work on creating a HEP that addresses these issues and allow patient to become more mobile and hopefully in less pain. Manual and modalities as needed for pain. Plan of Care Interventions Electrical Stimulation,Gait Training,Hot Pack/Cold Pack,Manual Therapy,Neuro Re-education,Patient/ Caregiver Education,Therapeutic Activities, Therapeutic Exercise,Ultrasound Other Interventions cupping, taping, IASTM PT Services Indicated Yes Treatment Frequency and 1-2x/wk for 8 visits Duration These treatments will address the objective and functional deficits as defined above. The patient will be advanced safely and appropriately in order for the patient to progress towards his/her prior level of function. Additional exercises will be introduced and as well as a comprehensive home exercise program upon discharge, if needed, ?to ensure carryover of functional gains achieved in the clinic. This treatment plan has been reviewed and agreement upon by the patient.
--- NOTE | 2023-02-03 15:03 | OPREHPOC ---
Outpatient Therapy Plan of Care This is a Multidisciplinary Plan of Care that may contain components documented by all disciplines (PT, OT, and ST.) PT Problem 1 PT Problem #1 Knowledge Deficit PT Goal 1 Goal Independent with HEP Target Visit 8 PT Problem 2 PT Problem #2 Impaired Flexibility PT Goal 1 Goal -20 degrees BRETT hamstrings Target Visit 8 PT Problem 3 PT Problem #3 Impaired Range of Motion PT Goal 1 Goal 40 degrees BRETT lumbar rotation Target Visit 8 PT Problem 4 PT Problem #4 Pain PT Goal 1 Goal decrease pain to no more than 5/10 in a week Target Visit 8
--- NOTE | 2023-02-09 14:08 | PCPTNOTE ---
Patient called & cancelled scheduled appointment this date due to forgetting her time and unable to get a ride.
--- NOTE | 2023-03-02 11:59 | PTOPDC ---
Assessment and note entered by Indu Maldonado, PT Evaluation Information Assessment PT Clinical Summary PHYSICAL THERAPY DISCHARGE Diane received the PT evaluation and one treatment session for the diagnosis of back pain and knee pain. She then stopped attending therapy . The goals were not assessed. She will be discharged at this time. Plan of Care PT Services Indicated No
== END 2023-03-02 12:45 | disposition home or self-care (01) ==
LOC: ANHPT 14:00
PROVIDERS: PCP Family Medicine
DX: M46.1 Sacroiliitis, not elsewhere classified (principal); M54.42 Lumbago with sciatica, left side; G89.29 Other chronic pain; M25.561 Pain in right knee; M25.562 Pain in left knee
CPT/HCPCS: 97110; 97140; 97161

== ENCOUNTER 2023-03-13 10:39 | Outpatient (CLI) | payer MEDICARE, MEDICAID, SELFPAY ==
--- NOTE | ~2023-03-13 | DEXA_ITS ---
Bone Density Report Name: YUAN STRANGE Age: 62 Sex: Female Ethnicity: White Date of : 1960 Indication: postmenopausal; screening for osteoporosis; history of glucocorticoids; hysterectomy; Referring Provider: ZEV GONZALEZ Study: Bone densitometry was performed. Exam Date: March 13, 2023 Accession number: [id number] Bone Density: Region BMD T-score Z-score Classification AP Spine(L1-L4) 1.172 1.1 2.6 Normal Femoral Neck (Left) 0.903 0.5 1.8 Normal Total Hip (Left) 0.997 0.4 1.5 Normal Femoral Neck (Right) 0.866 0.1 1.5 Normal Total Hip (Right) 1.013 0.6 1.6 Normal Total Hip Mean 1.005 0.5 1.6 Normal World Health Organization criteria for BMD impression classify patients as: Normal (T-score at or above -1.0), Osteopenia (T-score between -1.0 and -2.5), or Osteoporosis (T-score at or below -2.5). 10-year Fracture Risk: FRAX not reported because: All T-scores for Spine Total, Hip Total, Femoral Neck at or above -1.0 Clinical Information Provided by Patient: Has taken Glucocorticoids Has used the following medications: Vitamin D Has the following medical conditions: Hysterectomy Patient maximum height was 62 Menopause Age: 31 Does not regularly consume dairy products Drinks caffeinated beverages Onset of menses at age 13 Number of children 3 Impression: The patient has normal bone mass. The patient has risk factors, including: history of glucocorticoid therapy. Discussion: BONE DENSITY IS ABOVE THE MINIMUM DESIRABLE LEVEL AT ALL SKELETAL SITES TESTED. This patient?s bone mineral density is above the minimum desirable level (T-score -1.0 or better) at all sites measured. The patient should follow a healthful lifestyle (good nutrition with adequate calcium and vitamin D, and appropriate weight-bearing exercise). Follow-Up: Consider repeating this study in 5 years or sooner if there is some new clinical indication. Reported by: [facility] on 03/15/2023 1:52:00 PM. Reviewed, dictated and finalized at location AGunnar ARGUELLO
--- NOTE | ~2023-03-13 | MM_ITS ---
EXAMINATION: MM screening dillon BI w geovanna HISTORY: Screening mammogram, family history of breast cancer in her mother. TECHNIQUE: Craniocaudal and mediolateral oblique 3-D tomosynthesis images were obtained and synthetic 2-D images were generated. CAD analysis was submitted and interpreted. COMPARISON: No prior mammogram is available for comparison at this institution. BREAST PARENCHYMAL COMPOSITION: There are scattered areas of fibroglandular density. FINDINGS: RIGHT BREAST: There is focal asymmetry in the posterior third of the upper outer quadrant of the bren [address]. LEFT BREAST: No suspicious mass, calcification, or architectural distortion are identified to suggest malignancy. IMPRESSION: 1. Right breast focal asymmetry which may represent the patient's baseline however no comparison is c urrently available. 2. Comparison with prior mammograms is necessary. BI-RADS Category 0: Incomplete: Needs comparison with prior mammograms. Reviewed, dictated and finalized at location A. IMPRESSION: 1. Right breast focal asymmetry which may represent the patient's baseline [facility] no comparison is currently available. 2. Comparison with prior mammograms is necessary. BI-RADS Category 0: Incomplete: Needs comparison with prior mammograms.
== END 2023-03-13 10:40 | disposition home or self-care (01) ==
LOC: ANHIMG 11:08
PROVIDERS: PCP Family Medicine; Visit Provider Family Medicine
DX: Z12.31 Encounter for screening mammogram for malignant neoplasm of breast (principal); Z78.0 Asymptomatic menopausal state; R92.8 Other abnormal and inconclusive findings on diagnostic imaging of breast
CPT/HCPCS: 77063; 77067; 77080

== ENCOUNTER → 2023-03-29 12:11 | Outpatient (CLI) | payer MEDICARE, MEDICAID, SELFPAY ==
--- NOTE | ~2023-03-29 | XR_ITS ---
XR hand BI arthritis min 3V DATE: 03/29/2023 12:33 INDICATION: Osteoarthritis TECHNIQUE: 4 views of each hand COMPARISON: None FINDINGS: There is mild osteoarthritic change primarily at the interphalangeal joints. No fracture or dislocation, periosteal reaction or bone destruction or erosive change or chondrocalcinosis is detec johana. IMPRESSION: Mild osteoarthritis Reviewed, dictated and finalized at location B. IMPRESSION: Mild osteoarthritis
== END ==
PROVIDERS: PCP Internal Medicine; Visit Provider Internal Medicine
DX: M19.041 Primary osteoarthritis, right hand (principal); M19.042 Primary osteoarthritis, left hand
CPT/HCPCS: 73130

== ENCOUNTER 2023-07-12 07:33 | Emergency (ER) | payer MEDICARE, OTHER, SELFPAY ==
--- NOTE | ~2023-07-12 | XR_ITS ---
XR chest 1V portable DATE: 07/12/2023 11:37 INDICATION: Shortness of breath. Cough. Bilateral chest pain. TECHNIQUE: Portable AP chest on 07/12/2023 at 1134 hours COMPARISON: None FINDINGS: Normal heart size. No hilar or mediastinal enlargement. No pulmonary infiltrate or consolid ation, pleural effusion or pulmonary vascular congestion or pneumothorax. Degenerative changes of the thoracic and cervical spine. IMPRESSION: No active cardiopulmonary disease Reviewed, dictated and finalized at location B. [facility]
[2023-07-12 07:44] VITALS: BP 129/81; PULSE 79; RESP 20; TEMP 36.7; O2SAT 98
[2023-07-12 08:42] LABS: Influenza A QL RT-PCR Positive (Negative); Influenza B QL RT-PCR Negative (Negative); RSV RNA, RT-PCR Negative (Negative); SARS-CoV-2 RNA PCR Negative (Negative)
[2023-07-12 10:38] VITALS: BP 148/79; PULSE 73; RESP 15; TEMP 37.8; O2SAT 99
[2023-07-12 10:39] VITALS: O2SAT 99
--- NOTE | 2023-07-12 11:05 | ED.GENADULT ---
HPI - General Adult General Chief complaint: Fever Stated complaint: fever Time Seen by Provider: 07/12/23 10:29 History of Present Illness HPI narrative: 62-year-old female presenting to the emergency department for evaluation of multiple complaints. Patient states that she did have upper respiratory illness a few weeks ago but has had worsening chronic back pain over the last few days. Patient denies any falls or injuries. Patient denies any associated numbness or weakness with this. Patient did take her home Vicodin for pain control this morning Related Data Home Medications Medication Instructions Recorded Confirmed baclofen 10 mg tablet 10 mg PO TID 06/15/19 05/24/23 cholecalciferol (vitamin D3) 50 2,000 unit PO DAILY 06/15/19 05/24/23 mcg (2,000 unit) tablet hydrocodone 5 mg-acetaminophen 325 2 tablet PO TID PRN Pain 06/15/19 05/24/23 mg tablet ascorbic acid (vitamin C) 500 mg 500 mg PO DAILY 08/01/19 05/24/23 capsule aspirin 81 mg tablet,delayed 81 mg PO DAILY 08/01/19 05/24/23 release (Adult Low Dose Aspirin) biotin 10,000 mcg capsule 10,000 mcg PO DAILY 08/01/19 05/24/23 mecobalamin (vitamin B12) 1,000 1,000 mcg PO DAILY 08/01/19 05/24/23 mcg chewable tablet vitamin E (dl, acetate) 180 mg 400 unit PO DAILY 08/01/19 05/24/23 (400 unit) capsule hydroxyzine HCl 25 mg tablet 25 mg PO QID PRN Anxiety 08/03/22 05/24/23 duloxetine 30 mg capsule,delayed 90 mg PO DAILY 10/14/22 05/24/23 release (Cymbalta) Allergies Allergy/AdvReac Type Severity Reaction Status Date / Time gabapentin Allergy Severe disorientat Verified 07/12/23 07:48 ion morphine AdvReac Intermediate Nausea and Verified 07/12/23 07:48 Vomiting codeine AdvReac Mild Nausea Verified 07/12/23 07:48 cortisone AdvReac Mild Nausea Verified 07/12/23 07:48 erythromycin base AdvReac Mild Nausea Verified 07/12/23 07:48 Penicillins AdvReac Mild Nausea Verified 07/12/23 07:48 Review of Systems Review of Systems: All systems reviewed & are unremarkable except as noted in HPI and below PMFSH Past Medical History Medical History Anxiety Chronic back pain Chronic left SI joint pain Chronic narcotic use Congenital fusion of sacroiliac joint De Quervain's tenosynovitis, right First dorsal compartment release, 08/03/[address] Jeffrey LUNA (degenerative joint disease), lumbar Heartburn Herniated disc Hormone replacement therapy Hyperlipidemia Hypertension Inflammatory arthritis Lumbosacral radiculopathy due to degenerative joint disease of spine Pain in left wrist Primary hypertension SVT (supraventricular tachycardia) Tear of medial meniscus of left knee Surgical History Surgical History H/O arthroscopic knee surgery H/O section 1977,1979,1984 H/O: hysterectomy 1991 History of abdominoplasty 2001 History of carpal tunnel release 1995 History of foot surgery Hammer toe 1993 History of sacrocolpopexy 07/2016- History of tonsillectomy 1974 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istory Social History Smoking packs per day: 1 Smoking cigarettes per day: 20.0 Years smoked: 30 Smoking pack-years: 30.00 Smoking status: Former smoker Tobacco type: cigarettes Second hand tobacco smoke exposure: No Smoking end date: 06/14/05 Additional smoking assessment comments: cigarettes 1ppd x30 years Alcohol intake: current Alcohol use details: occassionally Substance us
[2023-07-12] MEDS: HYDROmorphone HCL INJ (*CRX) 1 MG/ML SYR 0.5 MG IV PUSH (11:20)
[2023-07-12 11:29] LABS: Hematocrit 40.4 % (37.0-47.0); Hemoglobin 12.8 g/dL (12.0-15.0); Red Blood Count 4.27 M/mm3 (4.2-5.4); White Blood Count 5.4 K/mm3 (4.5-10.0)
[2023-07-12 11:30] LABS: Basophils Percent Auto 0.6 % (0.2-1.2); Immature Granulocyte Absolute 0.01 K/mm3 (0.00-0.031); Immature Granulocyte Percent A 0.2 % (0-0.5); Lymphocytes Absolute Auto 1.29 K/mm3 (0.9-3.2); Lymphocytes Percent Auto 23.7 % (18.3-44.2); Mean Corpuscular HGB Conc 31.7 g/dl (32-36); Mean Corpuscular Volume 94.6 fl (80-100); Mean Platelet Volume 9.5 fl (7.4-10.4); Monocytes Absolute Auto 0.7 K/mm3 (0.1-0.6); Monocytes Percent Auto 12.1 % (2.6-8.5); Neutrophils Absolute Auto 3.5 K/mm3 (1.3-6.7); Neutrophils Percent Auto 63.4 % (45.5-73.1); Platelet Count Result 154 k/mm3 (150-375); Red Cell Distribution Width 14.7 % (11.5-14.5)
[2023-07-12 11:36] LABS: Appearance Urine Clear (Clear); Bacteria Urine None Seen /hpf; Bilirubin Urine Negative (Negative); Blood Urine 1+ (Negative); Color Urine Yellow (Yellow); Glucose Urine UA Negative (Negative); Ketones Urine 2+ mg/dL (Negative); Leukocyte Esterase Ur Negative LEU/UL (Negative); Nitrate Urine Negative (Negative); Non Pathogenic Casts 0-2; Protein Urine Negative (Negative); RBC Urine 0-2 /hpf (0-2); Specific Grav Ur 1.011 (1.001-1.035); Squamous Epithelial Cell Urine None seen /hpf (Few); Urobilinogen Urine 0.2 mg/dL (<2.0); WBC Urine 0-5 /hpf; pH Urine 5.5 (5.0-9.0)
[2023-07-12 11:39] LABS: Add Urine Microscopic? YES
[2023-07-12 11:41] LABS: Alanine Aminotransferase 29 U/L (6-35); Albumin Level 4.2 g/dL (3.5-5.1); Alkaline Phosphatase 91 U/L (38-126); Anion Gap 9 mmol/L (8-16); Aspartate Amino Transferase 43 U/L (14-36); Bilirubin,Total 0.4 mg/dL (0.2-1.3); Blood Urea Nitrogen 9 mg/dL (7-17); Calcium 9.1 mg/dL (8.4-10.2); Carbon Dioxide 29 mmol/L (22-30); Chloride 99 mmol/L (98-107); Estimated CRCL calculation 79 ml/min; Estimated Glomerular Filt Rate > 60; Glucose 97 mg/dL (65-110); Potassium 3.7 mmol/L (3.4-5.0); Prothrombin Time 13.1 Seconds (11.1-14.7); Sodium 137 mmol/L (137-145)
[2023-07-12 11:42] LABS: Partial Thromboplastin Time 35.8 SECONDS (22.3-36.8)
[2023-07-12 11:53] LABS: Troponin I < 0.012 ng/mL (0.000-0.034)
[2023-07-12] MEDS: KETOROLAC 30 MG/ML VIAL (*BKC) IV PUSH (12:24)
[2023-07-12 12:26] VITALS: BP 164/84; PULSE 64; RESP 15; O2SAT 97
== END 2023-07-12 13:41 | disposition home or self-care (01) ==
PROVIDERS: Emergency Provider Emergency Medicine; PCP Family Medicine
DX: J11.1 Influenza due to unidentified influenza virus with other respiratory manifestations (principal); E78.5 Hyperlipidemia, unspecified; I10 Essential (primary) hypertension; Z87.891 Personal history of nicotine dependence; Z20.822 Contact with and (suspected) exposure to COVID-19
CPT/HCPCS: 36415; 71045; 80053; 81001; 84484; 85025; 85610; 85730; 87637; 96374; 96375; 99284; J1170; J1885

== ENCOUNTER 2024-07-05 12:20 | Outpatient (CLI) | payer OTHER, MEDICARE, SELFPAY ==
--- OUTSIDE RECORDS SUMMARY | 2024-07-07 00:19 | XMS_ITS | Encounter Summary ---
Author Organization [facility] Address [address] [place] [address] Care Team Providers Care Knot Saw Operator Name Role Phone Unavailable Primary Care Provider Unavailabl e Encounter Details Date Type Department Care Team (Late st Contact Info) Description 07/04/2024 External Device Data [facility] ABSTRACTION Provider, Abstract NO ADDRESS ON FILE Social History Tobacco Use Types Packs/Day Years Used Date Smoking Tobacco: Never Assessed Comments Unknown Sex and Gender Information Value Date Recorded Sex Assigned at Not on file Legal Sex Female 1:56 PM CDT Gender Identity Not on file Sexual Orientation Not on file documented as of this encounter Plan of Treatment Not on file documented as of this encounter Visit Diagnoses Not on filedocumented in this encounter
--- OUTSIDE RECORDS SUMMARY | 2024-07-07 00:19 | XMS_ITS | Continuity of Care Document ---
Author Organization [facility] Address [address] [place] [address] Phone Care Team Providers Care Automotive Designer Name Role Phone Anna Bueno Unavailable Unavailable Advance Directives Directive Yes / No Effective Date File Name No Information Encounters Encounter Description Practice Location Reason(s) For Visit Diagnoses Date Provider Providers Copied on Encounter [facility], [id number] [place] [address] [address], [place], [place], [id number], [place] tel:[phone] [facility] No Information 0 [phone] Ximena Castillo. [address] , [address], [place], [address], [place]. tel:[phone] Family History Family Member Type Diagnosis Age At Onset No Information Payers Payer name Insurance type Covered green party ID Authoriza tion(s) [employer] CI [id number] Social History Type Description Quantity Date Captured Comments Sex Female Smoking Status No Information Chief Complaint And Reason For Visit No Information Reason For Referral Reason For Referral No Information History Of Present Illness Encounter Date Complaint History Of Prese nt Illness No Information Functional Status Date Functional Assessmen t No Information Instructions Date Instruction Additional Infor mation No Information Assessments Type Assessment Date No Information Patient Care Teams Name Effective Dates (start - stop) Status Members No Information
--- OUTSIDE RECORDS SUMMARY | 2024-07-07 00:19 | XMS_ITS | Encounter Summary ---
Author Organization [facility] Healthcare Address [address] [place] [address] Care Team Providers Care Paver Operator Name Role Phone Paul Sargent MD Primary Care Provider [phone] Solange Raza MD Primary Care Provider [phone]- [phone] Unknown, Notinfile Primary Care Provider Unavail able Kaley Medina MD Unavailable [phone] No, Physician Primary Care Provider [phone] Kaley Medina MD Unavailable [phone] Janna Caruso MD Unavailable Maria T Escobar MD Primary Care Provider [phone] Encounter Details Date Type Department Care Team (Late st Contact Info) Description 07/06/2018 Telephone [facility] at [place] [address] [facility] [address] [place] [address] Khushboo Lunsford RN Social History Tobacco Use Types Packs/Day Years Used Date Smoking Tobacco: Former Cigarettes Q uit: 12/02/2005 Smokeless Tobacco: Never Alcohol Use Standard Drinks/Week Comments No 0 (1 standard drink = 0.6 oz pur e alcohol) Comments No Sex and Gender Information Value Date Recorded Sex Assigned at Not on file Legal Sex Female 1:56 AM TISSUE SPECIALIST Gender Identity Not on file Sexual Orientation Not on file documented as of this encounter Plan of Treatment Not on file documented as of this encounter Goals Goal Patient Goal Type Associated Problems Recent Progress Patient-Stated? Author CCM Chronic Pain Care Plan Chronic Care Management Worsening(1 08/01/2023 9:42 AM TISSUE SPECIALIST) No Sierra Isabel, RN Note: Problem: Chronic Pain Goals: 1. Minimize further functional decline 2. Maximize quality of life 3. Control pain Strategies: - Activity/exercise program recommendation - Conservative stepwise pain medicine strategy with multi-disciplinary approach - Recommend healthy lifestyle strategies and compensatory methods as needed Reduce the likelihood of falling Lifestyle On track(05/31 9:42 AM TISSUE SPECIALIST) Kitty Lind Note: Below are four things you can do to prevent falls: 1. Begin an exercise program to improve your leg strength & balance 2. Ask your doctor or pharmacist to review your medicines 3. Get annual eye check-ups & update your eyeglasses 4. Make your home safer by: ?? Removing clutter & tripping hazards ?? Putting railings on all stairs & adding grab bars in the bathroom ?? Having good lighting, especially on stairs Contact your local community or [facility] for information on exercise, fall prevention programs, or options for improving home safety. 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/2012 08/30/201201/29 5:00 AM CDT documented as of this encounter Care Teams Paver Operator Relationship Specialty Start Date End Date Paul Sargent MD [address] [place] [address] PCP - General 09/04/16 02/21/19 Solange Raza MD [address] [place] [address] PCP - General 02/22/19 10/21/20 Unknown, Notinfile PCP - General 10/22/20 11/11/20 No, Physician PCP - General 11/12/20 06/22/22 Maria T Escobar MD [address] [facility] [place] [address] PCP - General Family Medicine 06/23/22 Kaley Medina MD [address] [place] [address] Non Garment Sewing Machine Operator Obstetrics and Gynecology 11/12/20 Kaley Medina MD [address] [place] [address] Non Garment Sewing Machine Operator Obstetrics and Gynecology 11/12/20 11/12/20 Janna Caruso MD [address] [facility] [place] [address] Consulting Physician Pain Management 10/18/18 documented as of this encounter
--- OUTSIDE RECORDS SUMMARY | 2024-07-07 00:19 | XMS_ITS | Encounter Summary ---
Author Organization [facility] Healthcare Address [address] [place] [address] Care Team Providers Care Girls Swimming Coach Name Role Phone Kaley Medina MD Unavailable No, Physician Primary Care Provider Janna Caruso MD Unavailable Maria T Escobar MD Primary Care Provider [phone] Reason for Visit * Reason Onset Date Comments precall 04/24/2021 Encounter Details Date Type Department Care Team (Late st Contact Info) Description 04/24/2021 Telephone [facility] [address] [place] [address] Karli Sapp, RN precall Social History Tobacco Use Types Packs/Day Years Used Date Smoking Tobacco: Former Cigarettes Q uit: 12/02/2005 Smokeless Tobacco: Never Alcohol Use Standard Drinks/Week Comments No 0 (1 standard drink = 0.6 oz pur e alcohol) AUDIT-C Answer Date Recorded Q1: How often do you have a drink containing alc ohol? Never 12/31/2020 Average Number of Drinks Not on file 021 Frequency of Binge Drinking Not on file 12/13 Comments No Sex and Gender Information Value Date Recorded Sex Assigned at Not on file Legal Sex Female 1:56 AM EXPORT AGENT Gender Identity Not on file Sexual Orientation Not on file documented as of this encounter Plan of Treatment Not on file documented as of this encounter Goals Goal Patient Goal Type Associated Problems Recent Progress Patient-Stated? Author CCM Chronic Pain Care Plan Chronic Care Management Worsening(1 08/01/2023 9:42 AM EXPORT AGENT) No Sierra Isabel, RN Note: Problem: Chronic Pain Goals: 1. Minimize further functional decline 2. Maximize quality of life 3. Control pain Strategies: - Activity/exercise program recommendation - Conservative stepwise pain medicine strategy with multi-disciplinary approach - Recommend healthy lifestyle strategies and compensatory methods as needed Reduce the likelihood of falling Lifestyle On track(05/31 9:42 AM EXPORT AGENT) Kitty Lind Note: Below are four things [...] on stairs Contact your local community or [facility] for information on exercise, fall prevention programs, or options for improving home safety. documented as of this encounter Visit Diagnoses Not on filedocumented in this encounter Care Teams Girls Swimming Coach Relationship Specialty Start Date End Date No, Physician PCP - General 11/12/20 06/22/22 Maria T Escobar MD [address] [place] [address] PCP - General Family Medicine 06/23/22 [place] [address] [place] [address] Principal Investigator Obstetrics and Gynecology 11/12/20 Janna Caruso MD [address] [place] [address] Consulting Physician Pain Management 10/18/18 documented as of this encounter
--- OUTSIDE RECORDS SUMMARY | 2024-07-07 00:19 | XMS_ITS | Continuity of Care Document ---
Author Organization [facility] Address [address] [place] [address] Phone Care Team Providers Care Loan Review Manager Name Role Phone Antolin Salmeron MD Unavailable Unavailable Advance Directives Directive Yes / No Effective Date File Name No Information Encounters Encounter Description Practice Location Reason(s) For Visit Diagnoses Date Provider Providers [facility] [address] [place], [place], [id number], [place] tel:[phone] [facility] No Information Jaron Dangelo. [address], [place], [id number], [place]. tel:[phone] Referring Provider: Nick Weir DO, [facility] [facility] [address], [place], [address]. tel:[phone] Family History Family Member Type Diagnosis Age At Onset No Information Payers Payer name Insurance type Covered libertarian ID Authoriza tion(s) [facility] CI [id number] Social History Type Description Quantity Date Captured [...]
--- OUTSIDE RECORDS SUMMARY | 2024-07-07 00:19 | XMS_ITS | Clinical Summary ---
Author Organization [facility] Address [address] [facility] [place] [address] Care Team Providers Care Profiler Name Role Phone Kaley Medina MD Unavailable Janna Caruso MD Unavailable Maria T Escobar MD Primary Care Provider [phone] Allergies Active Allergy Reactions Criticality Noted Date Comments Codeine Nausea And Vomiting Low 02/06/2016 Cortisone Nausea And Vomiting Medium 02/06/2016 And low BP. Pt states she does OK with PMC porcedures Erythromycin Nausea & Vomiting Low 01/24/2018 Morphine Nausea And Vomiting Medium 07/30/2016 Penicillins Nausea And Vomiting,Nausea & Vomiting Low 02/06/2016 Pregabalin Dizziness Low 02/06/2016 Medications atorvastatin (LIPITOR) 40 mg tablet Take 1 tablet (40 mg total) by mouth 6 Active lansoprazole (PREVACID) 30 mg capsule daily. 8 Active aspirin 81 mg tablet daily. 8 Active ascorbic acid (VITAMIN C) 500 mg tablet,chewable Take 1 tablet/chew tab (500 mg total) by mouth Active cholecalciferol (VITAMIN D-3) 25 mcg (1,000 unit) tablet Take 1 tablet (1,000 Units total) by mouth Active vitamin E acid succinate (VITAMIN E SUCCINATE) 400 unit tablet Take 400 Units by mouth. Active magnesium oxide (MAG-OX) 400 mg (241.3 mg elemental magnesium) tabletIndicatio ns:hypomagnesem ia Take 1 tablet (400 mg total) by mouth Active cyanocobalamin (Vitamin B-12) 2,500 mcg tablet, sublingualIndic ations:Preventi on of Vitamin B12 Deficiency Take 1 tablet (2,500 mcg total) by mouth Active biotin 5 mg tablet Take 10 mg by mouth. Active psyllium (KONSYL) powder Take 150 mg by mouth. Active NARCAN 4 mg/actuation spray,non-aeros ol 9 Active baclofen (LIORESAL) 10 mg tablet Take 1 tablet (10 mg total) by mouth 3 (three) times a day 180 tablet 3 Active acetaminophen 500 mg capsule Take 2 capsules (1,000 mg total) by mouth 3 (three) times a day Active soy isofla-blk cohosh-mag bark (Estroven) 155 mg capsule Take by mouth Activ e DULoxetine DR (CYMBALTA) 60 mg capsule Take 1 capsule (60 mg total) by mouth 2 (two) times a day 180 capsule 1 4 Active meloxicam (MOBIC) 15 mg tablet TAKE 1 TABLET BY MOUTH DAILY 100 tablet 1 4 Active hydrOXYzine (ATARAX) 25 mg tablet TAKE 1 TABLET BY MOUTH EVERY 8 HOURS NEEDED FOR ITCHING 300 tablet 1 4 Active ALPRAZolam (XANAX) 0.5 mg tablet Take 2 tablets (1 mg total) by mouth once as needed for anxiety for up to 1 dose 1 tablet 1 4 Active HYDROcodone-levi taminophen (NORCO) 5-325 mg per tabletIndicatio ns:Pain Take 1-2 tablets by mouth 3 (three) times a day as needed for pain 180 tablet 5 07/21/19 25 Active HYDROcodone-levi taminophen (NORCO) 5-325 mg per tabletIndicatio ns:Pain Take 1-2 tablets by mouth 3 (three) times a day as needed for pain 180 tablet 4 06/20/19 25 Discontinu ed(Reorder ) Active Problems Problem Noted Date Diagnosed Date Bradycardia, unspecified 04/21/2023 Encounter for colonoscopy du e to history of adenomatous colonic polyps 06/25/2022 Overview (06/25/2022): Added automatically from request for surgery [id number] Anxiety disorder 08/24/2019 Sacroiliac joint pain 07/26/2019 Sacroiliitis 10/18/2018 Chronic bilateral low back pain with left-sided sciatica 10/18/2018 Other chronic pain 08/04/2018 Other specified anxiety disorders 08/04/2018 Encounters Date Type Department Care Team Description 05/31/2024 9:12 AM SHRINKING MACHINE OPERATOR - 05/31/2024 11:59 PM SHRINKING MACHINE OPERATOR Hospital Encounter [facility] at [address] [address] Janna Caruso MD Sacroiliitis (HCC) (Primary Dx); Other chronic pain; Multiple sclerosis (HCC) Discharge Disposition: Discharge to home or self care 04/20/2024 - 04/20/2024 11:59 PM SHRINKING MACHINE OPERATOR Hospital Encounter [facility] - Imaging [phone] Discharge Disposition: Discharge to home or self care 04/19/2024 10:30 AM SHRINKING MACHINE OPERATOR - 04/19/2024 11:59 PM SHRINKING MACHINE OPERATOR Hospital Encounter [address] [address] Riana Bean, BERTA Primary osteoarthritis of left knee (Primary Dx); Chronic pain of both knees Discharge Disposition: Discharge to home or self care 04/17/[address] [address] Jenniffer Levin, WANG Pre Arrival 04/07/[address] [address] Khushboo Begum RN from Last 3 Months Surgical History Surgery Date Site/Laterality Comments SECTION 1977 Caesarean Section SECTION 1979 Caesarean Section SECTION 1985 Caesarean Section HYSTERECTOMY 1992 Hysterectomy BELT ABDOMINOPLASTY 2001 Sarah Serrano [place] TONSILLECTOMY PRIMARY/SEC ONDARY <AGE 13 Tonsillectomy - (Added by TW Conv) Medical History Medical History Date Comments Anxiety disorder Anxiety - (Adde d by TW Conv) Supraventricular tachycardia (HCC) Supraventricular tachycardia - (Added by TW Conv) Personal history of other di seases of the circulatory system History of hypertension - (A dded by TW Conv) Personal history of other me ntal and behavioral disorders History of depression - (Add ed by TW Conv) Hypertension Hyperlipidemia SVT (supraventricular tachycardia) (HCC) Chronic pain Family History Medical History Relation Name Comments Arrhythmia Brother 2 Arrhythmias; Other Father clogged arterie s; Heart disease Maternal Grandmother Family history of cardiac disorder - (Added by TW Conv) Breast cancer Mother Heart failure Mother Congestive Hea rt Failure; Heart disease Mother's Sister Family hist ory of cardiac disorder - (Added by TW Conv) Diabetes Other 1 Diabetes Mellit us - (Added by TW Conv) Depression Other 2 Depression - (A dded by TW Conv) COPD Other 3 Chronic Obstruc tive Pulmonary Disease - (Added by TW Conv) Heart disease Other 4 Family history of cardiac disorder - (Added by TW Conv) Arrhythmia Sister 2 Arrhythmias; Relation Name Status Comments Brother 1 Alive Brother 2 Father Alive Maternal Grandmother Mother Alive Mother's Sister Other 1 Other 2 Other 3 Other 4 Sister 1 Alive Sister 2 Social History Tobacco Use Types Packs/Day Years Used Date Smoking Tobacco: Former Cigarettes Q uit: 12/02/2005 Smokeless Tobacco: Never Tobacco Cessation:Counseling Given: Not Answered Alcohol Use Standard Drinks/Week Comments No 0 [...] on file Legal Sex Female 1:56 AM SHRINKING MACHINE OPERATOR Gender Identity Not on file Sexual Orientation Not on file Obstetrics History Para Term AB IAB SAB Ectopic Multiple Livin g Live Births 3 3 3 3 Date Outcome GA Total Labor Labor/2nd/3rd Weight Sex Type Anes PTL Josephine A1 A5 Name Clin Para Para Para Comments C/S x3 Last Filed Vital Signs Vital Sign Reading Time Taken Comments Blood Pressure 161/81 05/31/2024 9:39 AM SHRINKING MACHINE OPERATOR Pulse 69 05/31/2024 9:39 AM SHRINKING MACHINE OPERATOR Temperature 36.7 ??C (98.1 ??F) 05/31/2024 9:39 AM CS T Respiratory Rate 14 05/31/2024 9:39 AM SHRINKING MACHINE OPERATOR Oxygen Saturation 98% 05/31/2024 9:39 AM SHRINKING MACHINE OPERATOR Inhaled Oxygen Concentration - - Weight 77.6 kg (171 lb) 05/19/2023 10:19 AM SHRINKING MACHINE OPERATOR Height 154.9 cm (5' 1 ) 05/19/2023 10:19 AM SHRINKING MACHINE OPERATOR Body Mass Index 32.31 05/19/2023 10:19 AM SHRINKING MACHINE OPERATOR Plan of Treatment Health Maintenance Due Date Last Done Comments Depression Screening 1960 Hepatitis C Screening 1960 Hepatitis B Screening 10/31/1979 Zoster Vaccine (1 of 2) 10/31/2011 Breast Cancer Screening-Mammogram 01/06/2019 01/06/2018, 05/03/2017 DTaP/Tdap/Td Vaccine (2 - Td or Tdap) 08/02/2019 08/02/2009 Regular Well Visit/Exam 18-64 02/05/2022 02/05/2021 Covid-19 Vaccine ( season) 2024 03/17/2022, 08/11/2021, 09/02/2020, Additional history exists Influenza Vaccine (#1) 2024 , 03/25/2021, 03/31/2020, Additional history exists Colon Cancer Screening-Colonoscopy 04/30/2027 04/30/2017, 12/01/2013 Colon Cancer Screening-CT Colonography Discontinued 04/30/2017, 12/01/2013 Colon Cancer Screening-DNA Stool Discontinued 04/30/2017, 12/01/2013 Colon Cancer Screening-FIT Discontinued 04/30/2017, Colon Cancer Screening-Sigmoidoscopy Discontinued 04/30/2017, 12/01/2013 Cervical Cancer Screening Discontinued 02/05/2021 Pneumococcal vaccine <65 Aged Out No longer eligible based on patient's age to complete this topic Goals Goal Patient Goal Type Associated Problems Recent Progress Patient-Stated? Author CCM Chronic Pain Care Plan Chronic Care Management Worsening(1 08/01/2023 9:42 AM SHRINKING MACHINE OPERATOR) Sierra Garcia, RN Note: Problem: Chronic Pain Goals: 1. Minimize further functional decline 2. Maximize quality of life 3. Control pain Strategies: - Activity/exercise program recommendation - Conservative stepwise pain medicine strategy with multi-disciplinary approach - Recommend healthy lifestyle strategies and compensatory methods as needed Reduce the likelihood of falling Lifestyle On track(05/31 9:42 AM SHRINKING MACHINE OPERATOR) Kitty Lind Note: Below are four things [...] on stairs Contact your local community or [facility] for information on exercise, fall prevention programs, or options for improving home safety. Procedures Procedure Name Priority Date/Time Associated Diagnosis Comments NEURO MR OUTSIDE REFERENCE Routine 04/20/2024 12:00 AM SHRINKING MACHINE OPERATOR PAIN MGMT IMAGING SHOULDER, HIP, KNEE JOINT/BURSA INJ LEFT Schedule Routine, Read Routine (OP Routine) 04/19/2024 11:10 AM SHRINKING MACHINE OPERATOR Chronic pain of both knees THINPREP IMAGING PAP AND HPV MRNA E6/E7 REFLEX HPV 16,18/45 Routine 02/05/2021 10:20 AM CDT Routine gynecological examination SCREENING MAMMOGRAM BILATERAL W LUKE Schedule Routine, Read Routine (OP Routine) 01/06/2018 1:06 PM CDT Encounter for screening mammogram for malignant neoplasm of breast COLONOSCOPY REPORT 04/30/2017 from Last 3 Months or Most Recently Relevant to Health Maintenance Results * Neuro MR Outside Reference (04/20/2024 12:00 AM SHRINKING MACHINE OPERATOR) Narrative RAD_PACS_OUTSIDE_FILM_[facility] - 05/31/2024 9:09 AM SHRINKING MACHINE OPERATOR This order has been auto-finalized and does not contain a result. us Provider Transcribed Order IMG MRI PROCEDURES Fi nal Result [facility]_OUTSIDE_FILM_[facility] * Imaging Shoulder, Hip, Knee Joint/Bursa INJ Left () (04/19/2024 11:10 AM SHRINKING MACHINE OPERATOR) Narrative [facility] - 04/19/2024 1:05 PM SHRINKING MACHINE OPERATOR The images from this study are not interpreted by Radiology. ??Please refer to the physician's procedure / OR operative note. Janna Caruso MD IMG PAIN MGMT PROCEDU RES Final Result Performing Organization Address City/[facility]/ZIP Co de Phone Number RAD_PAC_[facility] * ThinPrep(R) Imaging Pap and HPV mRNA E6/E7 Reflex HPV 16,18/45 (02/05/2021 10:20 AM CDT) CLINICAL INFORMATION: [facility] Comment:Information not prov ided LMP [facility] Comment:NONE GIVEN Previous Pap [facility] Comment:NONE GIVEN Prev. Bx [facility] Comment:NONE GIVEN SOURCE: [facility] Comment:None given Pap, specimen adequacy [facility] Comment: Satisfactory for evaluation. Endocervical/transformation zone component present. HPV interp [facility] Comment:Negative for intraep ithelial lesion or malignancy. Infection: [facility] Comment: Fungal organisms morphologically consistent with Anh spp. COMMENTS [facility] Comment: This Pap test has been evaluated with computer assisted technology. Maintenance Mechanic Technician [facility] Comment: TMK, CT(ASCP) CT screening location: [place] [address] [address] [place] [address] Review yard motor operator [facility] Comment: BES, CT(ASCP) CT screening location: [place] [address] [address] [place] [address] Comment [facility] Comment: EXPLANATORY NOTE: The Pap is a screening test for cervical cancer. It is not a diagnostic test and is subject to false negative and false positive results. It is most reliable when a satisfactory sample, regularly obtained, is submitted with relevant clinical findings and history, and when the Pap result is evaluated along with historic and current clinical information. Human papillomavirus RNA, High Risk E6/E7 Not Detected Not Detected [employer] [place] Comment: Methodology: Rodent Exterminator-Mediated Amplification This assay detects E6/E7 viral messenger RNA (mRNA) from 14 high-risk HPV types (16,18,31,33,35,39,45,51,52,56,58,59,66,68). The analytical performance characteristics of this assay have been determined by [employer] The modifications have not been cleared or approved by the FDA. This assay has been validated pursuant to the CLIA regulations and is used for clinical purposes. For additional information, please refer to http://education.Yodle/faq/VLC030v5 (This link if provided for information/ educational purposes only.) Swab 02/05/2021 10:2 0 AM CDT 02/06/2021 1:57 AM CDT Ronda Macario [facility] CYTOLOGY ORDERABLES Final Result [facility] [address] [place] [address] [employer] [address] [place] [address] * Screening Mammogram Bilateral W Luke (01/06/2018 1:06 PM CDT) Anatomical Region Laterality Modality Breast Bilateral Mammography Narrative 01/10/2018 8:58 AM CDT Screening Mammogram Bilateral W Luke: 01/06/18 Clinical: Encounter for screening mammogram for malignant neoplasm of breast. ?? Prior Study Comparisons: Compared to: 05/03/2017 Screening Mammogram 2D Bilateral, 02/25/2016 DIAGNOSTIC MAMMOGRAM 2D LEFT, 01/09/2015 DIAGNOSTIC MAMMOGRAM 2D LEFT, and 01/31/2014 DIAGNOSTIC MAMMOGRAM 2D LEFT Findings: Bilateral No significant masses, malignant type calcifications, skin thickening, nipple retraction, or significant lymphadenopathy is noted in either breast. ??The CAD review showed no significant findings. The breasts have scattered areas of fibroglandular density. The patient will be notified of results by letter. Impression: BI-RADS?? ATLAS category (overall): 1 Negative ?? There is no mammographic evidence of malignancy. Routine Screening Mammogram in 1 Yr is recommended for bilateral Overall Assessment: 1 - Negative Kaley Medina MD IMG MAMMO PROCEDURES Emilie l Result * COLONOSCOPY REPORT (04/30/2017) Anatomical Region Laterality Modality Other Provider Scanning GI PROCEDURE ORDERABLES Final Result from Last 3 Months or Most Recently Relevant to Health Maintenance Insurance [employer] MEDICARE SOLUTIONS IDTX [facility] AETNA SIGNATURE [facility] CHOICE PLUS IDPA MEDICARE SOLUTIONS [place] [id number] Care Teams Profiler Relationship Specialty Start Date End Date Maria T Escobar MD [address] [place] [address] PCP - General Family Medicine 06/23/22 [place] [address] [place] [address] Automotive Parts Counterperson Obstetrics and Gynecology 11/12/20 Janna Caruso MD [address] [place] [address] Consulting Physician Pain Management 10/18/18
--- OUTSIDE RECORDS SUMMARY | 2024-07-07 00:19 | XMS_ITS | Referral Summary ---
Author Organization [facility] Address [address] [address] [facility] [place] [address] Care Team Providers Care Rocket Assembly Operator Name Role Phone Kaley Medina MD Unavailable Janna Caruso MD Unavailable Maria T Escobar MD Primary Care Provider [phone] Encounters Date Type Department Care Team Description 05/31/2024 9:12 AM SOLE STAINER - 05/31/2024 11:59 PM SOLE STAINER Hospital Encounter [address] [address] Janna Caruso MD Sacroiliitis (HCC) (Primary Dx); Other chronic pain; Multiple sclerosis (HCC) Discharge Disposition: Discharge to home or self care 04/20/2024 - 04/20/2024 11:59 PM SOLE STAINER Hospital Encounter [facility] - Imaging [phone] Discharge Disposition: Discharge to home or self care 04/19/2024 10:30 AM SOLE STAINER - 04/19/2024 11:59 PM SOLE STAINER Hospital Encounter [address] [address] Riana Bean, BERTA Primary osteoarthritis of left knee (Primary Dx); Chronic pain of both knees Discharge Disposition: Discharge to home or self care 04/17/2024 Telephone [facility] [address] [facility] [facility] 1[address] [place] [address] Jenniffer Levin RN Pre Arrival 04/07/2024 Telephone [facility] [address] [facility] [address] [place] [address] Khushboo Begum RN from Last 3 Months Allergies Active Allergy Reactions Criticality Noted Date [...] (06/25/2022): Added automatically from request for surgery [id number] Anxiety disorder 08/24/2019 Sacroiliac joint pain 07/26/2019 Sacroiliitis 10/18/2018 Chronic bilateral low back pain with left-sided sciatica 10/18/2018 Other chronic pain 08/04/2018 Other specified anxiety disorders 08/04/2018 Social History Tobacco Use Types Packs/Day Years [...] on file Legal Sex Female 1:56 AM SOLE STAINER Gender Identity Not on file Sexual Orientation Not on file Last Filed Vital Signs Vital Sign Reading Time Taken Comments Blood Pressure 161/81 05/31/2024 9:39 AM SOLE STAINER Pulse 69 05/31/2024 9:39 AM SOLE STAINER Temperature 36.7 ??C (98.1 ??F) 05/31/2024 9:39 AM CS T Respiratory Rate 14 05/31/2024 9:39 AM SOLE STAINER Oxygen Saturation 98% 05/31/2024 9:39 AM SOLE STAINER Inhaled Oxygen Concentration - - Weight 77.6 kg (171 lb) 05/19/2023 10:19 AM SOLE STAINER Height 154.9 cm (5' 1 ) 05/19/2023 10:19 AM SOLE STAINER Body Mass Index 32.31 05/19/2023 10:19 AM SOLE STAINER Plan of Treatment Not on file Goals Goal Patient Goal Type Associated Problems Recent Progress Patient-Stated? Author CCM Chronic Pain Care Plan Chronic Care Management Worsening(1 08/01/2023 9:42 AM SOLE STAINER) No Sierra Isabel, RN Note: Problem: Chronic Pain Goals: 1. Minimize further functional decline 2. Maximize quality of life 3. Control pain Strategies: - Activity/exercise program recommendation - Conservative stepwise pain medicine strategy with multi-disciplinary approach - Recommend healthy lifestyle strategies and compensatory methods as needed Reduce the likelihood of falling Lifestyle On track(05/31 9:42 AM SOLE STAINER) Kitty Lind Note: Below are four things [...] on stairs Contact your local community or [place] for information on exercise, fall prevention programs, or options for improving home safety. Procedures Procedure Name Priority Date/Time Associated Diagnosis Comments NEURO MR OUTSIDE REFERENCE Routine 04/20/2024 12:00 AM SOLE STAINER PAIN MGMT IMAGING SHOULDER, HIP, KNEE JOINT/BURSA INJ LEFT Schedule Routine, Read Routine (OP Routine) 04/19/2024 11:10 AM SOLE STAINER Chronic pain of both knees THINPREP IMAGING [...] Neuro MR Outside Reference (04/20/2024 12:00 AM SOLE STAINER) Narrative RAD_PACS_OUTSIDE_FILM_[facility] - 05/31/2024 9:09 AM SOLE STAINER This order has been auto-finalized and does not contain a result. us Provider Transcribed Order IMG MRI PROCEDURES Fi nal Result Performing Organization Address City/[facility]/ZIP Co de Phone Number RAD_PACS_OUTSIDE_FILM_[facility] * Imaging Shoulder, Hip, Knee Joint/Bursa INJ Left () (04/19/2024 11:10 AM SOLE STAINER) Narrative RAD_PACS_MB - 04/19/2024 1:05 PM SOLE STAINER The images from this study are not interpreted by Radiology. ??Please refer to the physician's procedure / OR operative note. us Janna Caruso MD IMG PAIN MGMT PROCEDU RES Final Result RAD_PACS_[facility] * ThinPrep(R) Imaging Pap and HPV mRNA E6/E7 Reflex HPV 16,18/45 (02/05/2021 10:20 AM CDT) CLINICAL INFORMATION: [facility] Comment:Information not prov ided LMP [facility] Comment:NONE GIVEN Previous Pap [facility] Comment:NONE GIVEN Prev. Bx [facility] Comment:NONE GIVEN SOURCE: [facility] Comment:None given Pap, specimen adequacy [facility] Comment: Satisfactory for evaluation. Endocervical/transformation zone component present. HPV interp [facility] Comment:Negative for intraep ithelial lesion or malignancy. Infection: [facility] Comment: Fungal organisms morphologically consistent with Anh spp. COMMENTS [facility] Comment: This Pap test has been evaluated with computer assisted technology. Solar Sales Associate [facility] Comment: TMK, CT(ASCP) CT screening location: [place] [address] [place] [address] Review recreation director [facility] Comment: BES, CT(ASCP) CT screening location: [place] [address] [address] [place] [address] Comment [facility] Comment: EXPLANATORY NOTE: The Pap is a [...] High Risk E6/E7 Not Detected [facility] Detected [facility]: Methodology: Embedded Systems Developer-Mediated Amplification This assay detects E6/E7 viral messenger RNA (mRNA) from 14 high-risk HPV types (16,18,31,33,35,39,45,51,52,56,58,59,66,68). The analytical performance characteristics of this assay have been determined by [employer]. The modifications have not been cleared or approved by the FDA. This assay has been validated pursuant to the CLIA regulations and is used for clinical purposes. For additional information, please refer to http://education.Yebol.Overwolf/faq/XSM492s2 (This link if provided for information/ educational purposes only.) Swab 02/05/2021 10:2 0 AM CDT 02/06/2021 1:57 AM CDT Ronda Macario DIRECTOR PATIENT FINANCIAL SERVICES LAB CYTOLOGY ORDERABLES Final Result [facility] [address] [place] [address] [facility] [address] [place] [address] * Screening Mammogram Bilateral W Luke (01/06/2018 [...] Most Recently Relevant to Health Maintenance Insurance [employer] MEDICARE SOLUTIONS IDPA [facility] AETNA SIGNATURE [facility] CHOICE PLUS IDPA MEDICARE SOLUTIONS [place] [id number] Care Teams Rocket Assembly Operator Relationship Specialty Start Date End Date Maria T Escobar MD [address] [facility] [place], [place] [id number] PCP - General Family Medicine 06/23/22 [place] [address] [place] [address] Special Delivery Clerk Obstetrics and Gynecology 11/12/20 Janna Caruso MD [address] [place] [address] Consulting Physician Pain Management 10/18/18
--- OUTSIDE RECORDS SUMMARY | 2024-07-07 00:19 | XMS_ITS | Encounter Summary ---
Author Organization [facility] Healthcare Address [address] [place] [address] Care Team Providers Care Glass Block Installer Name Role Phone Paul Sargent MD Primary Care Provider +- [phone] Solange Raza MD Primary Care Provider + [phone] Unknown, Notinfile Primary Care Provider Unavail able Kaley Medina MD Unavailable [phone] No, Physician Primary Care Provider [phone] Kaley Medina MD Unavailable [phone] Janna Caruso MD Unavailable [phone] Maria T Escobar MD Primary Care Provider [phone] Reason for Visit * Reason Onset Date Comments Med Refill 02/23/2018 Hydrocodone 5/32 5 #90 Carisoprodol 305MG #90 Please mail to home address Encounter Details Date Type Department Care Team (Late st Contact Info) Description 02/23/2018 Telephone [facility] at [address] [place] [address] Paul Rolon MD [address] [address] Med Refill (Hydrocodone 5/325 #90 Carisoprodol 305MG #90 Please mail to home address) Social History Tobacco Use Types Packs/Day Years Used Date Smoking Tobacco: Former Cigarettes Q uit: 12/02/2005 Smokeless Tobacco: Never Alcohol Use Standard Drinks/Week Comments No 0 (1 standard drink = 0.6 oz pur e alcohol) Comments No Sex and Gender Information Value Date Recorded Sex Assigned at Not on file Legal Sex Female 1:56 AM LIME MIXER Gender Identity Not on file Sexual Orientation Not on file documented as of this encounter Ordered Prescriptions Prescription Sig Dispense Quantity Refills Last Filled Start Date End Date carisoprodol (SOMA) 350 mg tabletIndications: Muscle Spasm Take 1 tablet (350 mg total) by mouth nightly as needed for muscle spasms. at bedtime. 30 tablet 02/23/2018 8 HYDROcodone-acetam inophen (NORCO) 5-325 mg per tabletIndications: Pain 1.5 po bid prn 90 tablet 02/23/2018 8 documented in this encounter Plan of Treatment Not on file documented as of this encounter Goals Goal Patient Goal Type Associated Problems Recent Progress Patient-Stated? Author CCM Chronic Pain Care Plan Chronic Care Management Worsening(1 08/01/2023 9:42 AM LIME MIXER) No Sierra Isabel, RN Note: Problem: Chronic Pain Goals: 1. Minimize further functional decline 2. Maximize quality of life 3. Control pain Strategies: - Activity/exercise program recommendation - Conservative stepwise pain medicine strategy with multi-disciplinary approach - Recommend healthy lifestyle strategies and compensatory methods as needed Reduce the likelihood of falling Lifestyle On track(05/31 9:42 AM LIME MIXER) Kitty Lind Note: Below are four things [...] stairs Contact your local community or senior center for information on exercise, fall prevention programs, or options for improving home safety. documented as of this encounter Visit Diagnoses Not on filedocumented in this encounter Discontinued Medications Medication Sig Discontinue Reason Start Date End Da te HYDROcodone-acetaminophen (NORCO) 5-325 mg per tabletIndications:Pain 1.5 po bid prn Reorder 01/19/2018 carisoprodol (SOMA) 350 mg tabletIndications:Muscle Spasm 1 po qhs prn Reorder 02/23/2018 documented as of this encounter Additional Health Concerns Infection Onset Date Last Indicated Resolved Time MRSA Comment:Germ watcher auto flagging 08/30/2012 08/30/201201/29 5:00 AM CDT documented as of this encounter Care Teams Glass Block Installer Relationship Specialty Start Date End Date Paul Sargent MD [address] [place] [address] PCP - General 09/04/16 02/21/19 Solange Raza MD [address] [place] [address] PCP - General 02/22/19 10/21/20 Unknown, Notinfile PCP - General 10/22/20 11/11/20 No, Physician PCP - General 11/12/20 06/22/22 Maria T Escobar MD [address] [place] [address] PCP - General Family Medicine 06/23/22 [place] [address] [place] [address] Tea Room Manager Obstetrics and Gynecology 11/12/20 [place] [address] [place] [address] Tea Room Manager Obstetrics and Gynecology 11/12/20 11/12/20 Janna Caruso MD [address] [place] [address] Consulting Physician Pain Management 10/18/18 documented as of this encounter
--- OUTSIDE RECORDS SUMMARY | 2024-07-07 00:19 | XMS_ITS | Encounter Summary ---
Author Organization [facility] Healthcare Address [address] [place] [address] Care Team Providers Care Linux Consultant Name Role Phone Paul Sargent MD Primary Care Provider [phone]- [phone] Solange Raza MD Primary Care Provider [phone]- [phone] Unknown, Notinfile Primary Care Provider Unavail able Kaley Medina MD Unavailable [phone] No, Physician Primary Care Provider [phone] Kaley Medina MD Unavailable [phone] Janna Caruso MD Unavailable Maria T Escobar MD Primary Care Provider [phone] Encounter Details Date Type Department Care Team (Late st Contact Info) Description 01/17/2018 Hospital Encounter [facility] [address] [place] [address] Social History Tobacco Use Types Packs/Day Years [...] on file Legal Sex Female 1:56 AM SODA WORKER Gender Identity Not on file Sexual Orientation Not on file COVID-19 Exposure Response Date Recorded In the last month, have you been in contact with someone who was confirmed or suspected to have Coronavirus / COVID-19? No / Unsure 09/05/2019 11:13 AM CDT documented as of this encounter Plan of Treatment Not on file documented as of this encounter Goals Goal Patient Goal Type Associated Problems Recent Progress Patient-Stated? Author CCM Chronic Pain Care Plan Chronic Care Management Worsening(1 08/01/2023 9:42 AM SODA WORKER) No Sierra Isabel, RN Note: Problem: Chronic Pain Goals: 1. Minimize further functional decline 2. Maximize quality of life 3. Control pain Strategies: - Activity/exercise program recommendation - Conservative stepwise pain medicine strategy with multi-disciplinary approach - Recommend healthy lifestyle strategies and compensatory methods as needed Reduce the likelihood of falling Lifestyle On track(05/31 9:42 AM SODA WORKER) Kitty Lind Note: Below are four things [...] stairs Contact your local community or senior clinton for information on exercise, fall prevention programs, or options for improving home safety. 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/2012 08/30/201201/29 5:00 AM CDT documented as of this encounter Care Teams Linux Consultant Relationship Specialty Start Date End Date Paul Sargent MD [address] [place] [address] PCP - General 09/04/16 02/21/19 Solange Raza MD [address] [place] [address] PCP - General 02/22/19 10/21/20 Unknown, Notinfile PCP - General 10/22/20 11/11/20 No, Physician PCP - General 11/12/20 06/22/22 Maria T Escobar MD [address] [place] [place] [address] PCP - General Family Medicine 06/23/22 Kaley Medina MD [address] [place] [id number] [address] Reading Teacher Obstetrics and Gynecology 11/12/20 Kaley Medina MD [address] [place] [address] [address] Grade Reading Teacher Obstetrics and Gynecology 11/12/20 11/12/20 Janna Caruso MD [address] [place] [place] [address] Consulting Physician Pain Management 10/18/18 documented as of this encounter
== END 2024-07-05 12:21 | disposition home or self-care (01) ==
LOC: ANHLAB 12:22 → ANHCARD 12:23
PROVIDERS: PCP Family Medicine; Visit Provider Family Medicine
DX: I10 Essential (primary) hypertension (principal)
CPT/HCPCS: 93005

== ENCOUNTER 2024-07-12 01:53 | Day surgery (SDC) | payer OTHER, MEDICARE, SELFPAY ==
[2024-07-05 10:45] VITALS: BMI 35.2
--- NOTE | 2024-07-05 10:52 | PC.NURSE ---
Addendum entered by Ganesh Barrett RN 07/05/24 11:06: Also told to hold Meloxicam and Aspirin 07-07-2024. Original Note: Report to the Outpatient Waiting Room, entrance under the green pavilion located off [facility], at time _0830_ on date _[id number]_. Planned Procedure Time: _1030_.? Time changes happen often and if your time is changed the preop area will call you the afternoon before. - You and your visitor will be asked to self-screen and do not enter if you have any COVID symptoms. Please call surgeon if you need to reschedule. - A mask is optional within the hospital at this time. Patients may have clear liquids (water, carbonated beverages, clear teas, apple juice) until 3 hours prior to surgery with a maximum of 20 ounces. - No food from midnight until time of surgery and no smoking. This includes no chewing gum, candy or mints. Take only the following medications with a SIP of water on the morning of surgery: __Duloxetine, and if needed Hydroxyzine and or Hydrocodone. DO NOT STOP ANY OF YOUR OTHER PRESCRIPTION MEDICATIONS PRIOR TO SURGERY EXCEPT THE FOLLOWING Medications to discontinue per physician ____All vitamins and supplements____ Date to take last ikhk___[id number]____ Please no make-up, nail hungarian, hairspray, perfume, deodorant, or body powder the day of surgery.? No jewelry (including any body piercings) or valuables the day of surgery, leave them at home.? Please take a shower or bath the night before, or the morning of, surgery with an antibacterial soap.? Wear comfortable, loose fitting clothing.? - Jewelry must be removed prior to entering the operating room.? Rings and piercings that are not removed may be cut off. - The hospital will not accept responsibility for valuables.? - Please leave all valuables, including medications, at home the day of surgery. If you are going home after surgery, a licensed commercial driver must drive you home.? - NO public transportation without another adult if you receive anesthesia. - We recommend that an adult stay with you for 24 hours following discharge. - We also recommend that you do not drive, make important decision, drink alcoholic beverages, or take any drugs that were not prescribed by your health care provider for at least 24 hours after your discharge time. Follow any additional instructions given to you from your surgeon. Telephone instructions given to __Jackie___and asked if any additional questions and then verbalized understanding. Patient advised to call surgeon office or pre surgery nurse liaison [phone] if any additional questions.
--- NOTE | 2024-07-11 07:40 | P.HP_ITS ---
H&P: HPI History of Present Illness Date/Time: 07/11/24 07:40 Chief Complaint: Patient has catching locking of the 1st dorsal compartment consistent with de Quervain's tenosynovitis it has been unresponsive to conservative treatment. Review of Systems Musculoskeletal: Musculoskeletal: Reports arthralgias, Reports joint swelling and Reports stiffness [facility] Past Medical History Medical History (Updated 07/04/24 @ 21:32 by Maria T Escobar MD) Inflammatory arthritis Chronic narcotic use Tear of medial meniscus of left knee De Quervain's tenosynovitis, right First dorsal compartment release, 08/03/[address] 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 decompression May 2014 History of carpal tunnel release 1995 History of foot surgery Hammer toe 1993 History of tonsillectomy 1974 History of sacrocolpopexy 07/2016- History of abdominoplasty 2001 H/O: hysterectomy 1991 H/O section 1977,1979,1984 Family History Family History Father Hypertension Family history of lung cancer Diabetes mellitus Grandparent Hypertension Pulmonary embolism Sibling Hypertension Heart disease Mother Hypertension Diabetes mellitus Breast cancer CHF (congestive heart failure) Social History Social History Smoking packs per day: 1 Smoking cigarettes per day: 20.0 Years smoked: 20 Smoking pack-years: 20.00 Smoking status: Former smoker Tobacco type: cigarettes Second hand tobacco smoke exposure: No Smoking end date: 07/05/05 Additional smoking assessment comments: cigarettes 1ppd x30 years Alcohol intake: current Drinks per week: 1 Alcohol use details: occassionally Substance use: never Substance use type: does not use Other substance usage details: PATIENT GETS THIS FROM PAIN MANAGEMENT. Do You Feel Safe in your Home?: Yes Lack of Transportation: No Lack of Food: Never True Current Housing: I Have Housing Concerned About Future Housing: No Difficulty Paying Gas/Electric Bills: No Difficulty Paying for Meds: No Currently Unemployed: No Education: Bachelor's Degree Difficulty w/ Childcare or Family Care: No Living arrangements: with family Additional living arrangements comments: Spouse Occupation/Education: unemployed Gender identity (if verbalized by the patient): Female Spiritual care concerns: No Meds Home Medications and Allergies Home Medications ?Medication ?Instructions ?Recorded ?Confirmed ?Type baclofen 10 mg tablet 10 mg PO TID 06/15/19 07/05/24 History cholecalciferol (vitamin D3) 50 2,000 unit PO DAILY 06/15/19 07/05/24 History mcg (2,000 unit) tablet hydrocodone 5 mg-acetaminophen 325 2 tablet PO TID PRN Pain 06/15/19 07/05/24 History mg tablet ascorbic acid (vitamin C) 500 mg 500 mg PO DAILY 08/01/19 07/05/24 History capsule aspirin 81 mg tablet,delayed 81 mg PO DAILY 08/01/19 07/05/24 History release (Adult Low Dose Aspirin) biotin 10,000 mcg capsule 10,000 mcg PO DAILY 08/01/19 07/05/24 History mecobalamin (vitamin B12) 1,000 1,000 mcg PO DAILY 08/01/19 07/05/24 History mcg chewable tablet vitamin E (dl, acetate) 180 mg 400 unit PO DAILY 08/01/19 07/05/24 History (400 unit) capsule hydroxyzine HCl 25 mg tablet 25 mg PO QID PRN Anxiety 08/03/22 07/05/24 History duloxetine 30 mg capsule,delayed 90 mg PO DAILY 10/14/22 07/05/24 History release (Cymbalta) meloxicam 15 mg tablet 15 mg PO DAILY #90 tabs 05/24/23 07/05/24 Rx lansoprazole 30 mg capsule,delayed See Rx Instructions .Route 11/07/23 07/05/24 Rx release .COMPLEX #100 caps atorvastatin 40 mg tablet See Rx Instructions .Route 03/01/24 07/05/24 Rx .COMPLEX #100 tabs calcium polycarbophil 625 mg 1,250 mg PO DAILY 07/05/24 07/05/24 History tablet (Fiber (calcium polycarbophil)) magnesium 250 mg tablet 250 mg PO DAILY 07/05/24 07/05/24 History Allergies Allergy/AdvReac Type Severity Reaction Status Date / Time gabapentin Allergy Severe disorientat Verified 07/05/24 10:42 ion morphine AdvReac Intermediate Nausea and Verified 07/05/24 10:42 Vomiting codeine AdvReac Mild Nausea Verified 07/05/24 10:42 cortisone AdvReac Mild Nausea Verified 07/05/24 10:42 erythromycin base AdvReac Mild Nausea Verified 07/05/24 10:42 Penicillins AdvReac Mild Nausea Verified 07/05/24 10:42 Exam Narrative: Patient has a positive Leyla's and tenderness and pain over the left wrist particularly the 1st dorsal compartment. She has had injections and failed conservative treatment. Eyes: General: appearance normal, both eyes and all related structures Neck: Neck: supple Resp: Effort & Inspection: normal respiratory effort Cardio: Rate: regular rate Rhythm: regular rhythm Assessment and Plan Assessment and plan (1) De Quervain's tenosynovitis, left: Code(s): M65.4 - Radial styloid tenosynovitis [de Quervain] Status: Acute Assessment and Plan: Patient has deeper veins tenosynovitis left. She has failed conservative treatment like to consider surgical release. I have discussed this with her risks benefits limitations and alternatives in detail. Will proceed per her request.
[2024-07-12] VITALS (10 sets, daily range): BP systolic 131–177; BP diastolic 64–84; PULSE 63–91; RESP 12–18; TEMP 36.4; O2SAT 94–100; BMI 34.4
--- OUTSIDE RECORDS SUMMARY | 2024-07-12 01:58 | XMS_ITS | Referral Summary ---
Author Organization [facility] Address [address] [place] [address] Care Team Providers Care Manager Sound Name Role Phone Kaley Medina MD Unavailable [phone] Janna Caruso MD Unavailable Maria T Escobar MD Primary Care Provider [phone] Encounters Date Type Department Care Team Description 05/31/2024 9:12 AM TOP FRAME MAKER - 05/31/2024 11:59 PM TOP FRAME MAKER Hospital Encounter [address] [address] Janna Caruso MD Sacroiliitis (HCC) (Primary Dx); Other chronic pain; Multiple sclerosis (HCC) Discharge Disposition: Discharge to home or self care 04/20/2024 - 04/20/2024 11:59 PM TOP FRAME MAKER Hospital Encounter [facility] [phone] Discharge Disposition: Discharge to home or self care 04/19/2024 10:30 AM TOP FRAME MAKER - 04/19/2024 11:59 PM TOP FRAME MAKER Hospital Encounter [address] [address] Riana Bean, BERTA Primary osteoarthritis of left knee (Primary Dx); Chronic pain of both knees Discharge Disposition: Discharge to home or self care 04/17/2024 Telephone [facility] [address] 1st [place] [address] Jenniffer Levin RN Pre Arrival from Last 3 Months Allergies Active Allergy [...] Bradycardia, unspecified 04/21/2023 Encounter for colonoscopy du samm to history of adenomatous colonic polyps 06/25/2022 Overview (06/25/2022): Added automatically from request for surgery [id number] Anxiety disorder 08/24/2019 Sacroiliac joint pain 07/26/2019 [...] on file Legal Sex Female 1:56 AM TOP FRAME MAKER Gender Identity Not on file Sexual Orientation Not on file Last Filed Vital Signs Vital Sign Reading Time Taken Comments Blood Pressure 161/81 05/31/2024 9:39 AM TOP FRAME MAKER Pulse 69 05/31/2024 9:39 AM TOP FRAME MAKER Temperature 36.7 ??C (98.1 ??F) 05/31/2024 9:39 AM CS T Respiratory Rate 14 05/31/2024 9:39 AM TOP FRAME MAKER Oxygen Saturation 98% 05/31/2024 9:39 AM TOP FRAME MAKER Inhaled Oxygen Concentration - - Weight 77.6 kg (171 lb) 05/19/2023 10:19 AM TOP FRAME MAKER Height 154.9 cm (5' 1 ) 05/19/2023 10:19 AM TOP FRAME MAKER Body Mass Index 32.31 05/19/2023 10:19 AM TOP FRAME MAKER Plan of Treatment Not on file Goals Goal Patient Goal Type Associated Problems Recent Progress Patient-Stated? Author CCM Chronic Pain Care Plan Chronic Care Management Worsening(1 08/01/2023 9:42 AM TOP FRAME MAKER) No Sierra Isabel, RN Note: Problem: Chronic Pain Goals: 1. Minimize further functional decline 2. Maximize quality of life 3. Control pain Strategies: - Activity/exercise program recommendation - Conservative stepwise pain medicine strategy with multi-disciplinary approach - Recommend healthy lifestyle strategies and compensatory methods as needed Reduce the likelihood of falling Lifestyle On track(05/31 9:42 AM TOP FRAME MAKER) Kitty Lind Note: Below are four things [...] MR OUTSIDE REFERENCE Routine 04/20/2024 12:00 AM TOP FRAME MAKER PAIN MGMT IMAGING SHOULDER, HIP, KNEE JOINT/BURSA INJ LEFT Schedule Routine, Read Routine (OP Routine) 04/19/2024 11:10 AM TOP FRAME MAKER Chronic pain of both knees THINPREP IMAGING [...] Neuro MR Outside Reference (04/20/2024 12:00 AM TOP FRAME MAKER) Narrative RAD_PACS_OUTSIDE_FILM_[facility] - 05/31/2024 9:09 AM TOP FRAME MAKER This order has been auto-finalized and does not contain a result. us Provider Transcribed Order IMG MRI PROCEDURES Fi nal Result RAD_PACS_OUTSIDE_FILM_[facility] * Imaging Shoulder, Hip, Knee Joint/Bursa INJ Left () (04/19/2024 11:10 AM TOP FRAME MAKER) Narrative RAD_PACS_[facility] - 04/19/2024 1:05 PM TOP FRAME MAKER The images from this study are not interpreted by Radiology. ??Please refer to the physician's procedure / OR operative note. us Janna Caruso MD IMG PAIN MGMT PROCEDU RES Final Result RAD_PACS_[facility] * ThinPrep(R) Imaging Pap and HPV mRNA E6/E7 Reflex HPV 16,18/45 (02/05/2021 10:20 AM CDT) CLINICAL INFORMATION: [facility] Comment:Information not prov ided LMP [facility] Comment:NONE GIVEN Previous Pap [facility] Comment:NONE GIVEN Prev. Bx [facility] Comment:NONE GIVEN SOURCE: [facility] Comment:None given Pap, specimen adequacy [facility] Comment: Satisfactory for evaluation. Endocervical/transformation zone component present. HPV interp [facility] Comment:Negative for intraep ithelial lesion or malignancy. Infection: [facility] Comment: Fungal organisms morphologically consistent with Anh spp. COMMENTS [facility] Comment: This Pap test has been evaluated with computer assisted technology. Conduit Helper Que [facility] Comment: TMK, CT(ASCP) CT screening location: [place] [address] [address] [place] [address] Review blindmaker [facility] Comment: BES, CT(ASCP) CT screening location: [place] [address] [address] [place] [address] Comment [facility] Comment: EXPLANATORY NOTE: The Pap is a [...] High Risk E6/E7 Not Detected Not Detected [facility] [employer] Comment: Methodology: [employer] Machine Operator-Mediated Amplification This assay detects E6/E7 viral messenger RNA (mRNA) from 14 high-risk HPV types (16,18,31,33,35,39,45,51,52,56,58,59,66,68). The analytical performance characteristics of this assay have been determined by [employer]. The modifications have not been cleared or approved by the FDA. This assay has been validated pursuant to the CLIA regulations and is used for clinical purposes. For additional information, please refer to http://education.[employer]/faq/MJP941n8 (This link if provided for information/ educational purposes only.) Swab 02/05/2021 10:2 0 AM CDT 02/06/2021 1:57 AM CDT Ronda Macario SERIALS LIBRARIAN LAB CYTOLOGY ORDERABLES Final Result [facility] [address] [place] [address] [facility] [address] [place] [address] * Screening Mammogram Bilateral W Luke (01/06/2018 [...] REPORT (04/30/2017) Anatomical Region Laterality Modality Other us Provider Scanning GI PROCEDURE ORDERABLES Final Result from Last 3 Months or Most Recently Relevant to Health Maintenance Insurance [facility] [employer] MEDICARE SOLUTIONS [facility] [employer] [facility] CHOICE PLUS [employer] MEDICARE SOLUTIONS [place] [id number] Care Teams Manager Sound Relationship Specialty Start Date End Date Maria T Escobar MD [address] [place] [address] PCP - General Family Medicine 06/23/22 [place] [address] [place] [address] Patrol Lady Obstetrics and Gynecology 11/12/20 Janna Caruso MD [address] [place] [address] Consulting Physician Pain Management 10/18/18
--- OUTSIDE RECORDS SUMMARY | 2024-07-12 01:58 | XMS_ITS | Clinical Summary ---
Author Organization [facility] Address [address] [facility] [place] [address] Care Team Providers Care Corporate Coordinator Name Role Phone Kaley Medina MD Unavailable Janna Caruso MD Unavailable Maria T Escobar MD Primary Care Provider [phone] Allergies Active Allergy Reactions Criticality Noted Date [...] (06/25/2022): Added automatically from request for surgery [id number] Anxiety disorder 08/24/2019 Sacroiliac joint pain 07/26/2019 Sacroiliitis 10/18/2018 Chronic bilateral low back pain with left-sided sciatica 10/18/2018 Other chronic pain 08/04/2018 Other specified anxiety disorders 08/04/2018 Encounters Date Type Department Care Team Description 05/31/2024 9:12 AM SEXOLOGIST - 05/31/2024 11:59 PM SEXOLOGIST Hospital Encounter [address] [address] Janna Caruso MD Sacroiliitis (HCC) (Primary Dx); Other chronic pain; Multiple sclerosis (HCC) Discharge Disposition: Discharge to home or self care 04/20/2024 - 04/20/2024 11:59 PM SEXOLOGIST Hospital Encounter [facility] - [facility] [phone] Discharge Disposition: Discharge to home or self care 04/19/2024 10:30 AM SEXOLOGIST - 04/19/2024 11:59 PM SEXOLOGIST Hospital Encounter [address] [address] Riana Bean NP Primary osteoarthritis of left knee (Primary Dx); Chronic pain of both knees Discharge Disposition: Discharge to home or self care 04/17/[address] [address] Jenniffer Levin, RN Pre Arrival from Last 3 Months Surgical History Surgery Date Site/Laterality Comments SECTION 1977 Caesarean Section SECTION 1979 Caesarean Section SECTION 1985 Caesarean Section HYSTERECTOMY 1992 Hysterectomy BELT ABDOMINOPLASTY 2001 [place] TONSILLECTOMY PRIMARY/SEC ONDARY <AGE 13 Tonsillectomy - (Added by TW Conv) Medical History Medical History Date Comments Anxiety disorder Anxiety - (Adde d by Conv) Supraventricular tachycardia (HCC) Supraventricular tachycardia - [...] on file Legal Sex Female 1:56 AM SEXOLOGIST Gender Identity Not on file Sexual Orientation [...] Comments Blood Pressure 161/81 05/31/2024 9:39 AM SEXOLOGIST Pulse 69 05/31/2024 9:39 AM SEXOLOGIST Temperature 36.7 ??C (98.1 ??F) 05/31/2024 9:39 AM CS T Respiratory Rate 14 05/31/2024 9:39 AM SEXOLOGIST Oxygen Saturation 98% 05/31/2024 9:39 AM SEXOLOGIST Inhaled Oxygen Concentration - - Weight 77.6 kg (171 lb) 05/19/2023 10:19 AM SEXOLOGIST Height 154.9 cm (5' 1 ) 05/19/2023 10:19 AM SEXOLOGIST Body Mass Index 32.31 05/19/2023 10:19 AM SEXOLOGIST Plan of Treatment Health Maintenance Due Date Last Done Comments Depression Screening 1961 Hepatitis C Screening 1960 Hepatitis B Screening 10/31/1979 Zoster Vaccine (1 of 2) 10/31/2011 Breast Cancer Screening-Mammogram 01/06/2019 01/06/2018, 05/03/2017 DTaP/Tdap/Td Vaccine (2 - Td or Tdap) 08/02/2019 08/02/2009 Regular Well Visit/Exam 18-64 02/05/2022 02/05/2021 Covid-19 Vaccine ( season) 2024 03/17/2022, 08/11/2021, 09/02/2020, Additional history exists Influenza Vaccine (#1) 2024 2, 03/25/2021, 03/31/2020, Additional history exists Colon Cancer [...] Chronic Care Management Worsening(1 08/01/2023 9:42 AM SEXOLOGIST) Sierra Garcia, RN Note: Problem: Chronic Pain Goals: 1. Minimize further functional decline 2. Maximize quality of life 3. Control pain Strategies: - Activity/exercise program recommendation - Conservative stepwise pain medicine strategy with multi-disciplinary approach - Recommend healthy lifestyle strategies and compensatory methods as needed Reduce the likelihood of falling Lifestyle On track(05/31 9:42 AM SEXOLOGIST) Kitty Lind Note: Below are four things [...] on stairs Contact your local community or the [facility] for information on exercise, fall prevention programs, or options for improving home safety. Procedures Procedure Name Priority Date/Time Associated Diagnosis Comments NEURO MR OUTSIDE REFERENCE Routine 04/20/2024 12:00 AM SEXOLOGIST PAIN MGMT IMAGING SHOULDER, HIP, KNEE JOINT/BURSA INJ LEFT Schedule Routine, Read Routine (OP Routine) 04/19/2024 11:10 AM SEXOLOGIST Chronic pain of both knees THINPREP IMAGING [...] Neuro MR Outside Reference (04/20/2024 12:00 AM SEXOLOGIST) Narrative RAD_PACS_OUTSIDE_FILM_MB - 05/31/2024 9:09 AM SEXOLOGIST This order has been auto-finalized and does not contain a result. us Provider Transcribed Order IMG MRI PROCEDURES Fi nal Result RAD_PACS_OUTSIDE_FILM_[facility] * Imaging Shoulder, Hip, Knee Joint/Bursa INJ Left () (04/19/2024 11:10 AM SEXOLOGIST) Narrative WILLY - 04/19/2024 1:05 PM SEXOLOGIST The images from this study are not interpreted by Radiology. ??Please refer to the physician's procedure / OR operative note. Janna Caruso MD IMG PAIN MGMT PROCEDU RES Final Result [facility] * ThinPrep(R) Imaging Pap and HPV mRNA E6/E7 Reflex HPV 16,18/45 (02/05/2021 10:20 AM CDT) CLINICAL INFORMATION: [facility] Comment:Information not prov ided LMP [facility] Comment:NONE GIVEN Previous Pap [facility] Comment:NONE GIVEN Prev. Bx [facility] Comment:NONE GIVEN SOURCE: [facility] Comment:None given Pap, specimen adequacy [facility] Comment: Satisfactory for evaluation. Endocervical/transformation zone component present. HPV interp [facility] Comment:Negative for intraep ithelial lesion or malignancy. Infection: [facility] Comment: Fungal organisms morphologically consistent with Anh spp. COMMENTS [facility] Comment: This Pap test has been evaluated with computer assisted technology. Head Scorer [facility] Comment: TMK, CT(ASCP) CT screening location: [place] [address] [place] [address] Review data steward [facility] Comment: BES, CT(ASCP) CT screening location: [place] [address] [place] [address] Comment [facility] Comment: EXPLANATORY NOTE: The Pap is [...] High Risk E6/E7 Not Detected Not Detected [facility] Comment: Methodology: Mental Health Program Specialist-Mediated Amplification This assay detects E6/E7 viral messenger RNA (mRNA) from 14 high-risk HPV types (16,18,31,33,35,39,45,51,52,56,58,59,66,68). The analytical performance characteristics of this assay have been determined by [facility]. The modifications have not been cleared or approved by the FDA. This assay has been validated pursuant to the CLIA regulations and is used for clinical purposes. For additional information, please refer to http://education.[employer]/faq/XRT478t2 (This link if provided for information/ educational purposes only.) Swab 02/05/2021 10:2 0 AM CDT 02/06/2021 1:57 AM CDT Ronda Macario NP LAB CYTOLOGY ORDERABLES Final Result [facility] [address] [place] [address] [facility] [address] [place] [address] * Screening Mammogram Bilateral W Luke (01/06/2018 [...] Most Recently Relevant to Health Maintenance Insurance [employer] MEDICARE [facility] [facility] MEDIC[facility] Address: [address] [address] [place] [address] IDPA [facility] AETNA SIGNATURE [id number]ICE [facility] [facility] HMO/PPO Address: [address] [address] [place] [address] [employer] MED[employer] [facility] MEDICARE Address: [address] [address] [place] [address] [place] [address] Care Teams Corporate Coordinator Relationship Specialty Start Date End Date Maria T Escobar MD [address] [place] [address] PCP - General Family Medicine 06/23/22 [place] [address] [place] [address] Dulser Obstetrics and Gynecology 11/12/20 Janna Caruso MD [address] [place] [address] Consulting Physician Pain Management 10/18/18
--- OUTSIDE RECORDS SUMMARY | 2024-07-12 01:58 | XMS_ITS | Encounter Summary ---
Author Organization [facility] Healthcare Address [address] [place] [address] Care Team Providers Care Freight Inspector Name Role Phone Kaley Medina MD Unavailable No, Physician Primary Care Provider [phone] Janna Caruso MD Unavailable Maria T Escobar MD Primary Care Provider [phone] Reason for Visit * Reason Onset Date Comments precall 04/24/2021 Encounter Details Date Type Department Care Team (Late st Contact Info) Description 04/24/2021 Telephone [facility] [address] [facility] 1st [place] [address] Karli Sapp, RN precall Social [...] on file Legal Sex Female 1:56 AM AMMONIA DISTILLER Gender Identity Not on file Sexual Orientation Not on file documented as of this encounter Plan of Treatment Not on file documented as of this encounter Goals Goal Patient Goal Type Associated Problems Recent Progress Patient-Stated? Author CCM Chronic Pain Care Plan Chronic Care Management Worsening(1 08/01/2023 9:42 AM AMMONIA DISTILLER) No Sierra Isabel, RN Note: Problem: Chronic Pain Goals: 1. Minimize further functional decline 2. Maximize quality of life 3. Control pain Strategies: - Activity/exercise program recommendation - Conservative stepwise pain medicine strategy with multi-disciplinary approach - Recommend healthy lifestyle strategies and compensatory methods as needed Reduce the likelihood of falling Lifestyle On track(05/31 9:42 AM AMMONIA DISTILLER) Kitty Lind Note: Below are four things [...] on stairs Contact your local community or [facility] for information on exercise, fall prevention programs, or options for improving home safety. documented as of this encounter Visit Diagnoses Not on filedocumented in this encounter Care Teams Freight Inspector Relationship Specialty Start Date End Date No, Physician PCP - General 11/12/20 06/22/22 Maria T Escobar MD [address] [place] [address] PCP - General Family Medicine 06/23/22 [place] [address] [place] [address] Marine Fitter Obstetrics and Gynecology 11/12/20 Janna Caruso MD [address] [place] [address] Consulting Physician Pain Management 10/18/18 documented as of this encounter
--- OUTSIDE RECORDS SUMMARY | 2024-07-12 01:58 | XMS_ITS | Encounter Summary ---
Author Organization [facility] Healthcare Address [address] [place] [address] Care Team Providers Care Drop Hammer Set Up Operator Name Role Phone Paul Sargent MD Primary Care Provider [phone]- [phone] Solange Raza MD Primary Care Provider [phone]- [phone] Unknown, Notinfile Primary Care Provider Unavail able Kaley Medina MD Unavailable [phone] No, Physician Primary Care Provider [phone] Kaley Medina MD Unavailable [phone] Janna Caruso MD Unavailable Maria T Escobar MD Primary Care Provider [phone] Encounter Details Date Type Department Care Team (Late st Contact Info) Description 01/17/2018 Hospital Encounter [facility] [address] [place] [address] Social History Tobacco Use Types Packs/Day Years [...] on file Legal Sex Female 1:56 AM QUARTER SUPERVISOR Gender Identity Not on file Sexual Orientation [...] Chronic Care Management Worsening(1 08/01/2023 9:42 AM QUARTER SUPERVISOR) No Sierra Isabel, RN Note: Problem: Chronic Pain Goals: 1. Minimize further functional decline 2. Maximize quality of life 3. Control pain Strategies: - Activity/exercise program recommendation - Conservative stepwise pain medicine strategy with multi-disciplinary approach - Recommend healthy lifestyle strategies and compensatory methods as needed Reduce the likelihood of falling Lifestyle On track(05/31 9:42 AM QUARTER SUPERVISOR) Kitty Lind Note: Below are four things [...] stairs Contact your local community or [facility] for information on exercise, fall prevention programs, or options for improving home safety. 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/2012 08/30/201201/29 5:00 AM CDT documented as of this encounter Care Teams Drop Hammer Set Up Operator Relationship Specialty Start Date End Date Paul [place] [address] PCP - General 09/04/16 02/21/19 Solange Raza MD [address] [place] [address] PCP - General 02/22/19 10/21/20 Unknown, Notinfile PCP - General 10/22/20 11/11/20 No, Physician PCP - General 11/12/20 06/22/22 Maria T Escobar MD [address] [place] [place] [address] PCP - General Family Medicine 06/23/22 Kaley Medina MD [address] [place] [address] [facility] Obstetrics [facility] Gynecology 11/12/20 Kaley Medina MD [address] [place] [address] [address] [facility] Obstetrics and Gynecology 11/12/20 11/12/20 Janna Caruso MD [address] [place] [address] Consulting Physician Pain Management 10/18/18 documented as of this encounter
--- OUTSIDE RECORDS SUMMARY | 2024-07-12 01:58 | XMS_ITS | Encounter Summary ---
Author Organization [facility] Healthcare Address [address] [place] [address] Care Team Providers Care Bankruptcy Law Specialist Name Role Phone Paul Sargent MD Primary Care Provider [phone]- [phone] Solange Raza MD Primary Care Provider + [phone] Unknown, Notinfile Primary Care Provider Unavail able Kaley Medina MD Unavailable [phone] No, Physician Primary Care Provider [phone] Kaley Medina MD Unavailable [phone] Janna Caruso MD Unavailable Maria T Escobar MD Primary Care Provider [phone] Reason for Visit * Reason Onset Date Comments Med Refill 02/23/2018 Hydrocodone 5/32 5 #90 Carisoprodol 305MG #90 Please mail to home address Encounter Details Date Type Department Care Team (Late st Contact Info) Description 02/23/[address] [facility] Pain Center at [address] [place] [address] Paul Rolon MD [address] [address] [address] Med Refill (Hydrocodone 5/325 #90 [...] on file Legal Sex Female 1:56 AM HUMAN RESOURCES FILE CLERK Gender Identity Not on file Sexual Orientation [...] Chronic Care Management Worsening(1 08/01/2023 9:42 AM HUMAN RESOURCES FILE CLERK) No Sierra Isabel, RN Note: Problem: Chronic Pain Goals: 1. Minimize further functional decline 2. Maximize quality of life 3. Control pain Strategies: - Activity/exercise program recommendation - Conservative stepwise pain medicine strategy with multi-disciplinary approach - Recommend healthy lifestyle strategies and compensatory methods as needed Reduce the likelihood of falling Lifestyle On track(05/31 9:42 AM HUMAN RESOURCES FILE CLERK) Kitty Lind Note: Below are four things [...] documented as of this encounter Care Teams Bankruptcy Law Specialist Relationship Specialty Start Date End Date Paul Sargent MD [address] [place] [address] PCP - General 09/04/16 02/21/19 Solange Raza MD [address] [place] [address] PCP - General 02/22/19 10/21/20 Unknown, Notinfile PCP - General 10/22/20 11/11/20 No, Physician PCP - General 11/12/20 06/22/22 Maria T Escobar MD [address] [place] [address] PCP - General Family Medicine 06/23/22 [place] [address] [place] [address] Laboratory Machinist Obstetrics and Gynecology 11/12/20 [place] [address] [place] [address] Laboratory Machinist Obstetrics and Gynecology 11/12/20 11/12/20 Janna Caruso MD [address] [place] [address] Consulting Physician Pain Management 10/18/18 documented as of this encounter
--- OUTSIDE RECORDS SUMMARY | 2024-07-12 01:58 | XMS_ITS | Encounter Summary ---
Author Organization [facility] Healthcare Address [address] [place] [address] Care Team Providers Care Soaker Meat Name Role Phone Paul Sargent MD Primary Care Provider [phone]- [phone] Solange Raza MD Primary Care Provider [phone]- [phone] Unknown, Notinfile Primary Care Provider Unavail able Kaley Medina MD Unavailable [phone] No, Physician Primary Care Provider [phone] Kaley Medina MD Unavailable [phone] Janna Caruso MD Unavailable Maria T Escobar MD Primary Care Provider [phone] Encounter Details Date Type Department Care Team (Late st Contact Info) Description 07/06/2018 Telephone [facility] Pain Center at [place] [address] [facility] [address] [place] [address] Khushboo Lunsford RN Social History Tobacco Use Types Packs/Day Years Used Date Smoking Tobacco: Former Cigarettes Q uit: 12/02/2005 Smokeless Tobacco: Never Alcohol Use Standard Drinks/Week Comments No 0 (1 standard drink = 0.6 oz pur e alcohol) Comments No Sex and Gender Information Value Date Recorded Sex Assigned at Not on file Legal Sex Female 1:56 AM CIRCULAR KNITTER Gender Identity Not on file Sexual Orientation Not on file documented as of this encounter Plan of Treatment Not on file documented as of this encounter Goals Goal Patient Goal Type Associated Problems Recent Progress Patient-Stated? Author CCM Chronic Pain Care Plan Chronic Care Management Worsening(1 08/01/2023 9:42 AM CIRCULAR KNITTER) No Sierra Isabel, RN Note: Problem: Chronic Pain Goals: 1. Minimize further functional decline 2. Maximize quality of life 3. Control pain Strategies: - Activity/exercise program recommendation - Conservative stepwise pain medicine strategy with multi-disciplinary approach - Recommend healthy lifestyle strategies and compensatory methods as needed Reduce the likelihood of falling Lifestyle On track(05/31 9:42 AM CIRCULAR KNITTER) Kitty Lind Note: Below are four things [...] on stairs Contact your local community or [facility] for information on exercise, fall prevention programs, or options for improving home safety. 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/2012 08/30/201201/29 5:00 AM CDT documented as of this encounter Care Teams Soaker Meat Relationship Specialty Start Date End Date Paul Sargent MD [address] [place] [address] PCP - General 09/04/16 02/21/19 Solange Raza MD [address] [place] [address] PCP - General 02/22/19 10/21/20 Unknown, Notinfile PCP - General 10/22/20 11/11/20 No, Physician PCP - General 11/12/20 06/22/22 Maria T Escobar MD [address] [facility] [place] [address] PCP - General Family Medicine 06/23/22 Kaley Medina MD [address] [place] [address] Curing Room Supervisor Obstetrics and Gynecology 11/12/20 Kaley Medina MD [address] [place] [address] Curing Room Supervisor Obstetrics and Gynecology 11/12/20 11/12/20 Janna Caruso MD [address] [facility] [place] [address] Consulting Physician Pain Management 10/18/18 documented as of this encounter
--- OUTSIDE RECORDS SUMMARY | 2024-07-12 01:58 | XMS_ITS | Clinical Summary ---
Author Organization [facility] Address [address] [place] [address] Care Team Providers Care Seasonal Driver Name Role Phone Unavailable Primary Care Provider Unavailabl e Encounters Date Type Department Care Team Description 07/05/2024 External Device Data STL ABSTRACTION Provider, Abstract 07/04/2024 External Device Data [facility] ABSTRACTION Provider, Abstract 06/20/2024 External Device Data [facility] ABSTRACTION Provider, Abstract 06/01/2024 12:45 PM FINAL ASSEMBLY INSPECTOR [facility] [address] [place] [address] Jorgito Jaramillo MD Ot tear of medial meniscus, current injury, left knee, init 04/20/2024 1:00 PM FINAL ASSEMBLY INSPECTOR Ancillary Procedure [facility] [address] [place] [address] Janna Caruso MD Bilateral headaches 04/18/2024 External Device Data [facility] ABSTRACTION Provider, Abstract from Last 3 Months Social History Tobacco Use Types Packs/Day Years Used Date Smoking Tobacco: Never Assessed Comments Unknown Sex and Gender Information Value Date Recorded Sex Assigned at Not on file Legal Sex Female 1:56 PM CDT Gender Identity Not on file Sexual Orientation Not on file Plan of Treatment Health Maintenance Due Date Last Done Comments DTAP/TDAP/TD VACCINES (1 - Tdap) 1980 CERVICAL CANCER SCREENING 10/31/1991 BREAST CANCER SCREENING 2001 COLORECTAL SCREENING 2006 Colorectal Cancer Screening 2006 FIT-DNA Q 3 years 2006 FIT/FOBT Q 1 year 2006 Flex Sig/CT Colonography Q 5 years 2006 ZOSTER VACCINE (1 of 2) 10/31/2011 INFLUENZA VACCINE (#1) 2024 RSV VACCINE (60+ or ) (1 - 1-dose 75+ series) 2036 Procedures Procedure Name Priority Date/Time Associated Diagnosis Comments MRI KNEE WO CONTRAST LEFT Routine 06/01/2024 1:16 PM FINAL ASSEMBLY INSPECTOR Oth tear of medial meniscus, current injury, left knee, init MRI BRAIN W WO CONTRAST Routine 04/20/2024 1:43 PM FINAL ASSEMBLY INSPECTOR Bilateral headaches from Last 3 Months Results * MRI KNEE WO CONTRAST LEFT (06/01/2024 1:16 PM FINAL ASSEMBLY INSPECTOR) Anatomical Region Laterality Modality Lower Extremity Magnetic Resonan ce 06/01/2024 1:17 PM FINAL ASSEMBLY INSPECTOR Impressions 06/01/2024 1:49 PM FINAL ASSEMBLY INSPECTOR IMPRESSION: 1. ??Nondisplaced horizontal undersurface tear of the body of the left medial meniscus. 2. ??Mild to moderate tendinopathy of the distal left semimembranosus tendon without evidence of associated tear. 3. ??Moderate to severe medial and patellofemoral compartment predominant tricompartmental left knee osteoarthritis with small effusion and trace Alfaro's cyst. Narrative 06/01/2024 1:49 PM FINAL ASSEMBLY INSPECTOR EXAM: ?? MRI KNEE WO CONTRAST LEFT DATE: ??06/01/2024 ?? CLINICAL HISTORY: ?? Left knee pain and swelling TECHNIQUE: Multiplanar, multisequence magnetic resonance images of the left knee were obtained by the technologist and submitted for review. No prior study is available for comparison. FINDINGS: In the medial compartment, there is a nondisplaced horizontal undersurface tear of the body of the medial meniscus with extrusion of the meniscal body into the medial gutter. ??There is moderate to severe deep partial-thickness or near full-thickness chondrosis of the central weightbearing medial femoral condyle and medial tibial plateau with scattered small foci of subchondral edema. ?? There is ihoo-tr-[id number] partial-thickness chondrosis of the posterior weightbearing medial femoral condyle. ??Osteophytes are present on the medial femoral condyle and medial tibial plateau. In the lateral compartment, the meniscus is intact. There is moderate partial-thickness chondrosis of the lateral tibial plateau and mild to moderate partial-thickness chondrosis of the central and posterior weightbearing lateral femoral condyle without subchondral edema. ?? Osteophytes are present on the lateral femoral condyle and lateral tibial plateau. In the patellofemoral compartment, there is moderate to severe deep partial-thickness chondrosis of the lateral patellar facet and superior half of the medial patellar facet and median ridge with mild to moderate partial-thickness chondrosis of the inferior half of the medial patellar facet and median ridge. ??There is moderate partial-thickness chondrosis of the medial trochlear articular cartilage and mild partial-thickness chondrosis of the central and lateral trochlear articular cartilage. ??Osteophytes are present on the posterior patella. ? The cruciate and collateral ligaments are normal. The extensor mechanism is intact. A small knee effusion is present with a trace Alfaro's cyst. ??No loose bodies are identified in the knee joint. The bone marrow signal is normal. ??There is njle-lv-[id number] tendinopathy of the distal semimembranosus tendon without evidence of tear. ??There is moderate anterior knee subcutaneous edema. Procedure Note Zora Tran MD - 06/01/2024 EXAM: MRI KNEE WO CONTRAST LEFT DATE: 06/01/2024 CLINICAL HISTORY: Left knee pain and swelling TECHNIQUE: Multiplanar, multisequence magnetic resonance images of the left knee were obtained by the technologist and submitted for review. No prior study is available for comparison. FINDINGS: In the medial compartment, there is a nondisplaced horizontal undersurface tear of the body of the medial meniscus with extrusion of the meniscal body into the medial gutter. There is moderate to severe deep partial-thickness or near full-thickness chondrosis of the central weightbearing medial femoral condyle and medial tibial plateau with scattered small foci of subchondral edema. There is ohxc-lj-dtkyumkw partial-thickness chondrosis of the posterior weightbearing medial femoral condyle. Osteophytes are present on the medial femoral condyle and medial tibial plateau. In the lateral compartment, the meniscus is intact. There is moderate partial-thickness chondrosis of the lateral tibial plateau and mild to moderate partial-thickness chondrosis of the central and posterior weightbearing lateral femoral condyle without subchondral edema. Osteophytes are present on the lateral femoral condyle and lateral tibial plateau. In the patellofemoral compartment, there is moderate to severe deep partial-thickness chondrosis of the lateral patellar facet and superior half of the medial patellar facet and median ridge with mild to moderate partial-thickness chondrosis of the inferior half of the medial patellar facet and median ridge. There is moderate partial-thickness chondrosis of the medial trochlear articular cartilage and mild partial-thickness chondrosis of the central and lateral trochlear articular cartilage. Osteophytes are present on the posterior patella. The cruciate and collateral ligaments are normal. The extensor mechanism is intact. A small knee effusion is present with a trace Alfaro's cyst. No loose bodies are identified in the knee joint. The bone marrow signal is normal. There is bdli-jj-vwnixint tendinopathy of the distal semimembranosus tendon without evidence of tear. There is moderate anterior knee subcutaneous edema. IMPRESSION: 1. Nondisplaced horizontal undersurface tear of the body of the left medial meniscus. 2. Mild to moderate tendinopathy of the distal left semimembranosus tendon without evidence of associated tear. 3. Moderate to severe medial and patellofemoral compartment predominant tricompartmental left knee osteoarthritis with small effusion and trace Alfaro's cyst. us Jorgito Jaramillo MD MR ORDERABLES Final Result * MRI BRAIN W WO CONTRAST (04/20/2024 1:43 PM FINAL ASSEMBLY INSPECTOR) Anatomical Region Laterality Modality Head Magnetic Resonan ce 04/20/2024 1:48 PM FINAL ASSEMBLY INSPECTOR Impressions 04/20/2024 2:05 PM FINAL ASSEMBLY INSPECTOR IMPRESSION: 1. ??No MR evidence of acute ischemia or bleed. No abnormal enhancing lesions. 2. ??Frontal cortical volume loss. 3. ??Small nonspecific nonenhancing white matter bright foci, could be incidental, in the appropriate clinical setting could be associated with chronic small vessel ischemic disease, prior trauma, demyelinating process to name a few. Narrative 04/20/2024 2:05 PM FINAL ASSEMBLY INSPECTOR IMAGING STUDIES: MRI BRAIN W WO CONTRAST ? DATE: 04/20/2024 1:43 PM COMPARISON STUDIES: No previous available. ?? CLINICAL HISTORY: Bilateral headaches. Left-sided numbness and weakness. TECHNIQUE: Sagittal T1, axial T2, axial FLAIR, axial T1, axial T2*, axial and coronal T1 weighted postcontrast, DWI/ADC images obtained. IV contrast was administered. CONTRAST: gadopiclenol (VUEWAY, ELUCIREM) 0.5 mmol/mL injection 20 mL ?? FINDINGS: Corpus callosum intact. The pituitary gland is not enlarged. No tonsillar herniation. Visualized paranasal sinuses are grossly clear. Mastoids appear well-aerated. No obvious intraorbital lesions. Normal flow voids within the major vessels. Cerebellopontine angles are clear. Ventricles and cisterns demonstrate normal shape and configuration for the patient's age. Frontal cortical volume loss. Several bilateral periventricular and subcortical white matter small bright foci averaging 4 mm noted better depicted on the FLAIR sequence No evidence of edema, mass effect, midline shift, extra-axial fluid collection or intracranial bleed. ?? No diffusion restriction signal abnormalities are identified to suggest the presence of acute ischemia. After the administration of intravenous contrast, No abnormal enhancing lesions noted. Procedure Note Juan Doss MD - 04/20/2024 IMAGING STUDIES: MRI BRAIN W WO CONTRAST DATE: 04/20/2024 1:43 PM COMPARISON STUDIES: No previous available. CLINICAL HISTORY: Bilateral headaches. Left-sided numbness and weakness. TECHNIQUE: Sagittal T1, axial T2, axial FLAIR, axial T1, axial T2*, axial and coronal T1 weighted postcontrast, DWI/ADC images obtained. IV contrast was administered. CONTRAST: gadopiclenol (VUEWAY, ELUCIREM) 0.5 mmol/mL injection 20 mL FINDINGS: Corpus callosum intact. The pituitary gland is not enlarged. No tonsillar herniation. Visualized paranasal sinuses are grossly clear. Mastoids appear well-aerated. No obvious intraorbital lesions. Normal flow voids within the major vessels. Cerebellopontine angles are clear. Ventricles and cisterns demonstrate normal shape and configuration for the patient's age. Frontal cortical volume loss. Several bilateral periventricular and subcortical white matter small bright foci averaging 4 mm noted better depicted on the FLAIR sequence No evidence of edema, mass effect, midline shift, extra-axial fluid collection or intracranial bleed. No diffusion restriction signal abnormalities are identified to suggest the presence of acute ischemia. After the administration of intravenous contrast, No abnormal enhancing lesions noted. IMPRESSION: 1. No MR evidence of acute ischemia or bleed. No abnormal enhancing lesions. 2. Frontal cortical volume loss. 3. Small nonspecific nonenhancing white matter bright foci, could be incidental, in the appropriate clinical setting could be associated with chronic small vessel ischemic disease, prior trauma, demyelinating process to name a few. us Janna Caruso MD MR ORDERABLES Final Result from Last 3 Months Insurance [facility] [id number]
--- NOTE | 2024-07-12 08:26 | WPDHPUPDATE1 ---
History and Physical Update Update Date/Time: 07/12/24 08:26 History and Physical has been reviewed, including an updated exam of the patient. There are NO changes in the patient's condition. Risks, benefits, and alternatives have been discussed and questions answered. Patient agrees to proceed with procedure.
[2024-07-12] MEDS: LACTATED RINGERS 1,000 ML 30 ML IV CONT ×2 (09:05→10:48)
[2024-07-12] MEDS: ACETAMINOPHEN 500 MG TABLET 1000 MG PO (09:08)
[2024-07-12] MEDS: KETOROLAC 15 MG/ML VIAL (*BKC) IV PUSH (09:08)
--- NOTE | 2024-07-12 09:19 | WPDANESEPPF ---
Anes - Initial Pre Proc Eval Procedure: Operation Date: 07/12/24 10:30 Proposed Procedures p Left First Dorsal Compartment Release - Jorgito Jaramillo MD Date/Time: 07/12/24 09:19 Surgeon: Jorgito Jaramillo MD Pre Op Diagnosis: de quervain's tenosynovitis Patient Data Age: 63 Gender: F Height: 1.57 m Weight: 85.4 kg Allergies Allergy/AdvReac Type Severity Reaction Status Date / Time gabapentin Allergy Severe disorientat Verified 07/05/24 10:42 ion morphine AdvReac Intermediate Nausea and Verified 07/05/24 10:42 Vomiting codeine AdvReac Mild Nausea Verified 07/05/24 10:42 cortisone AdvReac Mild Nausea Verified 07/05/24 10:42 erythromycin base AdvReac Mild Nausea Verified 07/05/24 10:42 Penicillins AdvReac Mild Nausea Verified 07/05/24 10:42 Home Medications ?Medication ?Instructions ?Recorded ?Confirmed ?Type baclofen 10 mg tablet 10 mg PO TID 06/15/19 07/05/24 History cholecalciferol (vitamin D3) 50 2,000 unit PO DAILY 06/15/19 07/05/24 History mcg (2,000 unit) tablet hydrocodone 5 mg-acetaminophen 325 2 tablet PO TID PRN Pain 06/15/19 07/05/24 History mg tablet ascorbic acid (vitamin C) 500 mg 500 mg PO DAILY 08/01/19 07/05/24 History capsule aspirin 81 mg tablet,delayed 81 mg PO DAILY 08/01/19 07/05/24 History release (Adult Low Dose Aspirin) biotin 10,000 mcg capsule 10,000 mcg PO DAILY 08/01/19 07/05/24 History mecobalamin (vitamin B12) 1,000 1,000 mcg PO DAILY 08/01/19 07/05/24 History mcg chewable tablet vitamin E (dl, acetate) 180 mg 400 unit PO DAILY 08/01/19 07/05/24 History (400 unit) capsule hydroxyzine HCl 25 mg tablet 25 mg PO QID PRN Anxiety 08/03/22 07/05/24 History duloxetine 30 mg capsule,delayed 90 mg PO DAILY 10/14/22 07/05/24 History release (Cymbalta) meloxicam 15 mg tablet 15 mg PO DAILY #90 tabs 05/24/23 07/05/24 Rx lansoprazole 30 mg capsule,delayed See Rx Instructions .Route 11/07/23 07/05/24 Rx release .COMPLEX #100 caps atorvastatin 40 mg tablet See Rx Instructions .Route 03/01/24 07/05/24 Rx .COMPLEX #100 tabs calcium polycarbophil 625 mg 1,250 mg PO DAILY 07/05/24 07/05/24 History tablet (Fiber (calcium polycarbophil)) magnesium 250 mg tablet 250 mg PO DAILY 07/05/24 07/05/24 History Patient hx anesthesia problems: none Family hx anesthesia problems: none Results Review: All pre-operative results and documents have been reviewed as part of the pre-operative evaluation. [facility] Past Medical History Medical History Inflammatory arthritis Chronic narcotic use Tear of medial meniscus of left knee De Quervain's tenosynovitis, right First dorsal compartment release, 08/03/[address] 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 decompression May 2014 History of carpal tunnel release 1995 History of foot surgery Hammer toe 1993 History of tonsillectomy 1974 History of sacrocolpopexy 07/2016- History of abdominoplasty 2001 H/O: hysterectomy 1991 H/O section 1977,1979,1984 Family History Family History Father Hypertension Family history of lung cancer Diabetes mellitus Grandparent Hypertension Pulmonary embolism Sibling Hypertension Heart disease Mother Hypertension Diabetes mellitus Breast cancer CHF (congestive heart failure) Social History Social History Smoking packs per day: 1 Smoking cigarettes per day: 20.0 Years smoked: 20 Smoking pack-years: 20.00 Smoking status: Former smoker Tobacco type: cigarettes Second hand tobacco smoke exposure: No Smoking end date: 07/05/05 Additional smoking assessment comments: cigarettes 1ppd x30 years Alcohol intake: current Drinks per week: 1 Alcohol use details: occassionally Substance use: never Substance use type: does not use Other substance usage details: PATIENT GETS THIS FROM PAIN MANAGEMENT. Do You Feel Safe in your Home?: Yes Lack of Transportation: No Lack of Food: Never True Current Housing: I Have Housing Concerned About Future Housing: No Difficulty Paying Gas/Electric Bills: No Difficulty Paying for Meds: No Currently Unemployed: No Education: Bachelor's Degree Difficulty w/ Childcare or Family Care: No Living arrangements: with family Additional living arrangements comments: Spouse Occupation/Education: unemployed Gender identity (if verbalized by the patient): Female Spiritual care concerns: No Anes - Eval Final PreProcedure Day of Procedure 07/12/24 09:19 Patient weight: obese Heart: regular rate and rhythm Lungs: clear to auscultation Airway: Mallampati scale class II Neurological: alert and oriented Last oral intake: >/= 8 hours ASA classification: III Emergent: no Anesthetic plan: proceed Anesthesia type and monitoring: general LMA and standard monitoring Results Review: All pre-operative results and documents have been reviewed as part of the pre-operative evaluation. Informed Consent: The patient's anesthetic plan and its attendant risks and benefits were discussed with the patient/family/POA. Questions were solicited and answers provided to the satisfaction of the patient/family/POA.
[2024-07-12] MEDS: SCOPOLAMINE 1 MG PATCH 1 PATCH TRANSDERM (09:20)
[2024-07-12] MEDS: ceFAZolin 2 GM/D5W 50 ML 2 GM/50 ML BAG IVPB (09:23)
[2024-07-12] MEDS: LIDOCAINE 1% LOCAL INJ 10 ML VIAL 20 ML INFILTRATE (09:42)
--- NOTE | 2024-07-12 09:46 | W.PM.PROC2 ---
Procedure Note - Detailed Date of Procedure 07/12/24 Pre-op Diagnosis De Quervain's tenosynovitis LEFT Post-op Diagnosis Same Procedure Performed Release 1st dorsal compartment Surgeon Jorgito Jaramillo MD Anesthesia General Description of Procedure Patient brought to operating room 7. A general anesthetic was administered. She was sterilely prepped and draped in usual manner. Transverse incision made over the 1st dorsal compartment, just through the skin. Dissection bluntly carried down protecting the neurovascular bundles. The tendon sheath was easily found and released under direct vision. Both the abductor pollicis longus and the extensor pollicis brevis were identified. These at this point move freely without any inhibition. Wound irrigated hemostasis obtained and closed with 3-0 Prolene. Sterile dressing applied. Estimated Blood Loss 5 Complications No immediate complications Condition Stable Disposition PACU [facility] Billing Surgery - Charge Forward: Surgery Billing ([id number] De Quervains release)
[2024-07-12] MEDS: fentaNYL CITRATE INJ (*CRX) 100 MCG/2 ML VIAL 25 MCG IV PUSH ×8 (10:07→10:42)
[2024-07-12] MEDS: ONDANSETRON INJ 4 MG/2 ML VIAL IV PUSH (10:36)
[2024-07-12] MEDS: oxyCODONE HCL (*CRX) 5 MG TAB IR PO (11:30)
== END 2024-07-12 12:09 | disposition home or self-care (01) ==
PROVIDERS: PCP Family Medicine; Visit Provider Orthopaedic Surgery
PROC: (CPT 25000; principal; 2024-07-12 10:30)
DX: M65.4 Radial styloid tenosynovitis [de Quervain] (principal); E78.5 Hyperlipidemia, unspecified; I10 Essential (primary) hypertension; K21.9 Gastro-esophageal reflux disease without esophagitis; F41.9 Anxiety disorder, unspecified; I47.10 Supraventricular tachycardia, unspecified; M06.4 Inflammatory polyarthropathy; Z79.890 Hormone replacement therapy; Z79.899 Other long term (current) drug therapy; M51.369 Other intervertebral disc degeneration, lumbar region without mention of lumbar back pain or lower extremity pain; G89.29 Other chronic pain; M53.3 Sacrococcygeal disorders, not elsewhere classified; M54.9 Dorsalgia, unspecified; E66.9 Obesity, unspecified; Z68.34 Body mass index [BMI] 34.0-34.9, adult; Z79.891 Long term (current) use of opiate analgesic; Z79.82 Long term (current) use of aspirin; Z98.890 Other specified postprocedural states; Z87.891 Personal history of nicotine dependence; Z80.1 Family history of malignant neoplasm of trachea, bronchus and lung; Z80.3 Family history of malignant neoplasm of breast; Z82.49 Family history of ischemic heart disease and other diseases of the circulatory system
CPT/HCPCS: 25000; A9270; J0690; J1100; J1885; J2003; J2405; J2704; J3010; J7120

== ENCOUNTER 2024-07-20 14:38 | Outpatient (CLI) | payer OTHER, MEDICARE, SELFPAY ==
--- NOTE | ~2024-07-20 | MM_ITS ---
EXAMINATION: MM screening dillon BI w geovanna HISTORY: Screening TECHNIQUE: Craniocaudal and mediolateral oblique 3-D tomosynthesis images were obtained and synthetic 2-D images were generated. CAD analysis was submitted and interpreted. COMPARISON: Comparison to multiple prior studies sequentially, with oldest reviewed study dated 11/26 BREAST PARENCHYMAL COMPOSITION: Not dense: There are scattered areas of fibroglandular density. FINDINGS: There is no evidence of suspicious mass, calcification, or architectural distortion to sugg est malignancy in either breast. There has been no suspicious interval change. IMPRESSION: 1. No mammographic evidence of malignancy. 2. Recommend routine screening mammography in one year. BI-RADS Category 1: Negative Reviewed, dictated and finalized at location B. ING MACHINE OPERATOR
--- OUTSIDE RECORDS SUMMARY | 2024-07-20 14:54 | XMS_ITS | Encounter Summary ---
Author Organization [facility] Healthcare Address [address] [place] [address] Care Team Providers Care Clock Assembler Name Role Phone Kaley Medina MD Unavailable No, Physician Primary Care Provider [phone] Janna Caruso MD Unavailable [phone] Maria T Escobar MD Primary Care Provider [phone] Reason for Visit * Reason Onset Date Comments precall 04/24/2021 Encounter Details Date Type Department Care Team (Late st Contact Info) Description 04/24/2021 Telephone [facility] [address] [facility] [address] [place] [address] Karli Sapp, RN precall Social [...] on file Legal Sex Female 1:56 AM BIAS BINDING FOLDER Gender Identity Not on file Sexual Orientation Not on file documented as of this encounter Plan of Treatment Not on file documented as of this encounter Goals Goal Patient Goal Type Associated Problems Recent Progress Patient-Stated? Author CCM Chronic Pain Care Plan Chronic Care Management Worsening(1 08/01/2023 9:42 AM BIAS BINDING FOLDER) Sierra Garcia, RN Note: Problem: Chronic Pain Goals: 1. Minimize further functional decline 2. Maximize quality of life 3. Control pain Strategies: - Activity/exercise program recommendation - Conservative stepwise pain medicine strategy with multi-disciplinary approach - Recommend healthy lifestyle strategies and compensatory methods as needed Reduce the likelihood of falling Lifestyle On track(05/31 9:42 AM BIAS BINDING FOLDER) Kitty Lind Note: Below are four things you can do to prevent falls: 1. Begin an exercise program to improve your leg strength & balance 2. Ask your doctor or pharmacist to review your medicines 3. Get annual eye check-ups & update your eyeglasses 4. Make your home safer by: Removing clutter & tripping hazards Putting railings on all stairs & adding grab bars in the bathroom Having good lighting, especially on stairs Contact your local community or [facility] for information on exercise, fall prevention programs, or options for improving home safety. documented as of this encounter Visit Diagnoses Not on filedocumented in this encounter Care Teams Clock Assembler Relationship Specialty Start Date End Date No, Physician PCP - General 11/12/20 06/22/22 Maria T Escobar MD [address] [place] [address] PCP - General Family Medicine 06/23/22 [place] [address] [place] [address] Associate Software Application Engineer Obstetrics and Gynecology 11/12/20 Janna Caruso MD [address] [place] [address] Consulting Physician Pain Management 10/18/18 documented as of this encounter
--- OUTSIDE RECORDS SUMMARY | 2024-07-20 14:54 | XMS_ITS | Referral Summary ---
Author Organization [facility] Address [address] [facility] [place] [address] Care Team Providers Care Temperature Regulator Name Role Phone Kaley Medina MD Unavailable Janna Caruso MD Unavailable Maria T Escobar MD Primary Care Provider [phone] Encounters Date Type Department Care Team Description 05/31/2024 9:12 AM BOOK PACKER - 05/31/2024 11:59 PM BOOK PACKER Hospital Encounter [address] [address] Janna Caruso MD Sacroiliitis (HCC) (Primary Dx); Other chronic pain; Multiple sclerosis (HCC) Discharge Disposition: Discharge to home or self care 04/20/2024 - 04/20/2024 11:59 PM BOOK PACKER Hospital Encounter [facility] - Imaging [phone] Discharge Disposition: Discharge to home or self care 04/19/2024 10:30 AM BOOK PACKER - 04/19/2024 11:59 PM BOOK PACKER Hospital Encounter [address] [address] Riana Bean NP Primary osteoarthritis of left knee (Primary Dx); Chronic pain of both knees Discharge Disposition: Discharge to home or self care from Last 3 Months Allergies Active Allergy [...] TABLET BY MOUTH DAILY 100 tablet 1 10/03/202 4 Active hydrOXYzine (ATARAX) 25 mg tablet [...] as needed for pain 180 tablet 5 08/22/19 25 Active HYDROcodone-levi taminophen (NORCO) 5-325 mg per tabletIndicatio ns:Pain Take 1-2 tablets by mouth 3 (three) times a day as needed for pain 180 tablet 5 07/19/19 25 Discontinu ed(Reorder ) Active Problems Problem Noted Date Diagnosed Date Bradycardia, unspecified 04/21/2023 Encounter for colonoscopy du e to history of adenomatous colonic polyps 06/25/2022 Overview (06/25/2022): Added automatically from request for surgery [id number] Anxiety disorder 08/24/2019 Sacroiliac joint pain 07/26/2019 [...] on file Legal Sex Female 1:56 AM BOOK PACKER Gender Identity Not on file Sexual Orientation Not on file Last Filed Vital Signs Vital Sign Reading Time Taken Comments Blood Pressure 161/81 05/31/2024 9:39 AM BOOK PACKER Pulse 69 05/31/2024 9:39 AM BOOK PACKER Temperature 36.7 C (98.1 F) 05/31/2024 9:39 AM BOOK PACKER Respiratory Rate 14 05/31/2024 9:39 AM BOOK PACKER Oxygen Saturation 98% 05/31/2024 9:39 AM BOOK PACKER Inhaled Oxygen Concentration - - Weight 77.6 kg (171 lb) 05/19/2023 10:19 AM BOOK PACKER Height 154.9 cm (5' 1 ) 05/19/2023 10:19 AM BOOK PACKER Body Mass Index 32.31 05/19/2023 10:19 AM BOOK PACKER Plan of Treatment Not on file Goals Goal Patient Goal Type Associated Problems Recent Progress Patient-Stated? Author CCM Chronic Pain Care Plan Chronic Care Management Worsening(1 08/01/2023 9:42 AM BOOK PACKER) Sierra Garcia, RN Note: Problem: Chronic Pain Goals: 1. Minimize further functional decline 2. Maximize quality of life 3. Control pain Strategies: - Activity/exercise program recommendation - Conservative stepwise pain medicine strategy with multi-disciplinary approach - Recommend healthy lifestyle strategies and compensatory methods as needed Reduce the likelihood of falling Lifestyle On track(05/31 9:42 AM BOOK PACKER) Kitty Lind Note: Below are four things [...] MR OUTSIDE REFERENCE Routine 04/20/2024 12:00 AM BOOK PACKER PAIN MGMT IMAGING SHOULDER, HIP, KNEE JOINT/BURSA INJ LEFT Schedule Routine, Read Routine (OP Routine) 04/19/2024 11:10 AM BOOK PACKER Chronic pain of both knees THINPREP IMAGING [...] Neuro MR Outside Reference (04/20/2024 12:00 AM BOOK PACKER) Narrative RAD_PACS_OUTSIDE_FILM_[facility] - 05/31/2024 9:09 AM BOOK PACKER This order has been auto-finalized and does not contain a result. us Provider Transcribed Order IMG MRI PROCEDURES Fi nal Result Performing Organization Address [facility] Co de Phone Number RAD_PACS_OUTSIDE_FILM_[facility] * Imaging Shoulder, Hip, Knee Joint/Bursa INJ Left () (04/19/2024 11:10 AM BOOK PACKER) Narrative [facility]_PACS_[facility] - 04/19/2024 1:05 PM BOOK PACKER The images from this study are not interpreted by Radiology. Please refer to the physician's procedure / OR operative note. Janna Caruso MD IMG PAIN MGMT PROCEDU RES Final Result Performing Organization Address City/[facility] Co de Phone Number RAD_PACS_MB * ThinPrep(R) Imaging Pap and HPV mRNA E6/E7 Reflex HPV 16,18/45 (02/05/2021 10:20 AM CDT) CLINICAL INFORMATION: [facility] Comment:Information not prov ided LMP [facility] Comment:NONE GIVEN Previous Pap [facility] Comment:NONE GIVEN Prev. Bx [facility] Comment:NONE GIVEN SOURCE: [facility] Comment:None given Pap, specimen adequacy [facility] [employer] [facility] Comment: Satisfactory for evaluation. Endocervical/transformation zone component present. HPV interp [facility] Comment:Negative for intraep ithelial lesion or malignancy. Infection: [facility] Comment: Fungal organisms morphologically consistent with Anh spp. COMMENTS [facility] Comment: This Pap test has been evaluated with computer assisted technology. Retail Team Leader [facility] Comment: TMK, CT(ASCP) CT screening location: [place] [address] [address] [place] [place] [address] Review manager privacy [facility] Comment: BES, CT(ASCP) CT screening location: [place] [address] [address] [place] [address] Comment [facility] Comment: EXPLANATORY NOTE: The Pap is a [...] High Risk E6/E7 Not Detected Not Detected [facility] [employer] [facility] Comment: Methodology: Technical Specialist Cytogenetics-Mediated Amplification This assay detects E6/E7 viral messenger RNA (mRNA) from 14 high-risk HPV types (16,18,31,33,35,39,45,51,52,56,58,59,66,68). The analytical performance characteristics of this assay have been determined by [employer]. The modifications have not been cleared or approved by the FDA. This assay has been validated pursuant to the CLIA regulations and is used for clinical purposes. For additional information, please refer to http://education.[employer].Grandis/faq/HQC917y3 (This link if provided for information/ educational purposes only.) Swab 02/05/2021 10:2 0 AM CDT 02/06/2021 1:57 AM CDT us Ronda Macario MANAGER AGRICULTURAL LAB CYTOLOGY ORDERABLES Final Result [place] [address] [address] [place] [address] [facility] [address] [place] [address] * Screening Mammogram Bilateral W Luke (01/06/2018 1:06 PM CDT) Anatomical Region Laterality Modality Breast Bilateral Mammography Narrative 01/10/2018 8:58 AM CDT Screening Mammogram Bilateral W Luke: 01/06/18 Clinical: Encounter for screening mammogram for malignant neoplasm of breast. Prior Study Comparisons: Compared to: 05/03/2017 Screening Mammogram 2D Bilateral, 02/25/2016 DIAGNOSTIC MAMMOGRAM 2D LEFT, 01/09/2015 DIAGNOSTIC MAMMOGRAM 2D LEFT, and 01/31/2014 DIAGNOSTIC MAMMOGRAM 2D LEFT Findings: Bilateral No significant masses, malignant type calcifications, skin thickening, nipple retraction, or significant lymphadenopathy is noted in either breast. The CAD review showed no significant findings. The breasts have scattered areas of fibroglandular density. The patient will be notified of results by letter. Impression: BI-RADS ATLAS category (overall): 1 Negative There is no mammographic evidence of malignancy. Routine Screening Mammogram in 1 Yr is recommended for bilateral Overall Assessment: 1 - Negative Kaley Medina MD IMG MAMMO PROCEDURES Emilie l Result * COLONOSCOPY REPORT (04/30/2017) Anatomical Region Laterality Modality Other Provider Scanning GI PROCEDURE ORDERABLES Final Result from Last 3 Months or Most Recently Relevant to Health Maintenance Insurance [email or web address] MEDICARE SOLUTIONS IDPA [facility] AETNA SIGNATURE [facility] CHOICE PLUS [facility] HMO/PPO Address: [address] [address] [place] [address] IDPA MEDICARE SOLUTIONS [facility] MEDICARE Address: [address] [address] [place] [address] [facility] 9 Care Teams Temperature Regulator Relationship Specialty Start Date End Date Maria T Escobar MD [address] [place] [address] PCP - General Family Medicine 06/23/22 [place] [address] [place] [address] Electric Drill Operator Obstetrics and Gynecology 11/12/20 Janna Caruso MD [address] [place] [address] Consulting Physician Pain Management 10/18/18
--- OUTSIDE RECORDS SUMMARY | 2024-07-20 14:54 | XMS_ITS | Clinical Summary ---
Author Organization [facility] Address [address] [facility] [place] [address] Care Team Providers Care Truck Chauffeur Name Role Phone Kaley Medina MD Unavailable Janna Caruso MD Unavailable Maria T Escobar MD Primary Care Provider [phone] Allergies Active Allergy Reactions Criticality Noted Date [...] (06/25/2022): Added automatically from request for surgery [id number] Anxiety disorder 08/24/2019 Sacroiliac joint pain 07/26/2019 Sacroiliitis 10/18/2018 Chronic bilateral low back pain with left-sided sciatica 10/18/2018 Other chronic pain 08/04/2018 Other specified anxiety disorders 08/04/2018 Encounters Date Type Department Care Team Description 05/31/2024 9:12 AM GATEKEEPER - 05/31/2024 11:59 PM GATEKEEPER Hospital Encounter [address] [phone] Janna Caruso MD Sacroiliitis (HCC) (Primary Dx); Other chronic pain; Multiple sclerosis (HCC) Discharge Disposition: Discharge to home or self care 04/20/2024 - 04/20/2024 11:59 PM GATEKEEPER Hospital Encounter [facility] - Imaging [phone] Discharge Disposition: Discharge to home or self care 04/19/2024 10:30 AM GATEKEEPER - 04/19/2024 11:59 PM GATEKEEPER Hospital Encounter [address] [phone] Riana Bean NP Primary osteoarthritis of left knee (Primary Dx); Chronic pain of both knees Discharge Disposition: Discharge to home or self care from Last 3 Months Surgical History Surgery Date Site/Laterality Comments SECTION 1977 Caesarean Section SECTION 1979 Caesarean Section SECTION 1985 Caesarean Section HYSTERECTOMY 1992 Hysterectomy BELT ABDOMINOPLASTY 2001 [place] TONSILLECTOMY PRIMARY/SEC ONDARY <AGE 13 Tonsillectomy - [...] on file Legal Sex Female 1:56 AM GATEKEEPER Gender Identity Not on file Sexual Orientation [...] Comments Blood Pressure 161/81 05/31/2024 9:39 AM GATEKEEPER Pulse 69 05/31/2024 9:39 AM GATEKEEPER Temperature 36.7 C (98.1 F) 05/31/2024 9:39 AM GATEKEEPER Respiratory Rate 14 05/31/2024 9:39 AM GATEKEEPER Oxygen Saturation 98% 05/31/2024 9:39 AM GATEKEEPER Inhaled Oxygen Concentration - - Weight 77.6 kg (171 lb) 05/19/2023 10:19 AM GATEKEEPER Height 154.9 cm (5' 1 ) 05/19/2023 10:19 AM GATEKEEPER Body Mass Index 32.31 05/19/2023 10:19 AM GATEKEEPER Plan of Treatment Health Maintenance Due Date [...] Chronic Care Management Worsening(1 08/01/2023 9:42 AM GATEKEEPER) No Sierra Isabel, RN Note: Problem: Chronic Pain Goals: 1. Minimize further functional decline 2. Maximize quality of life 3. Control pain Strategies: - Activity/exercise program recommendation - Conservative stepwise pain medicine strategy with multi-disciplinary approach - Recommend healthy lifestyle strategies and compensatory methods as needed Reduce the likelihood of falling Lifestyle On track(05/31 9:42 AM GATEKEEPER) No Kitty Morse Note: Below are four things you can [...] on stairs Contact your local community or house [facility] for information on exercise, fall prevention programs, or options for improving home safety. Procedures Procedure Name Priority Date/Time Associated Diagnosis Comments NEURO MR OUTSIDE REFERENCE Routine 04/20/2024 12:00 AM GATEKEEPER PAIN MGMT IMAGING SHOULDER, HIP, KNEE JOINT/BURSA INJ LEFT Schedule Routine, Read Routine (OP Routine) 04/19/2024 11:10 AM GATEKEEPER Chronic pain of both knees THINPREP IMAGING [...] Neuro MR Outside Reference (04/20/2024 12:00 AM GATEKEEPER) Narrative RAD_PACS_OUTSIDE_FILM_[facility] - 05/31/2024 9:09 AM GATEKEEPER This order has been auto-finalized and does not contain a result. us Provider Transcribed Order IMG MRI PROCEDURES Fi nal Result RAD_PACS_OUTSIDE_FILM_[facility] * Imaging Shoulder, Hip, Knee Joint/Bursa INJ Left () (04/19/2024 11:10 AM GATEKEEPER) Narrative RAD_PACS_[facility] - 04/19/2024 1:05 PM GATEKEEPER The images from this study are not interpreted by Radiology. Please refer to the physician's procedure / OR operative note. Janna Caruso MD IM PAIN MGMT PROCEDU RES Final Result RAD_PACS_[facility] * ThinPrep(R) Imaging Pap and HPV mRNA E6/E7 Reflex HPV 16,18/45 (02/05/2021 10:20 AM CDT) CLINICAL INFORMATION: [facility] Comment:Information not prov ided LMP [facility] Comment:NONE GIVEN Previous Pap [facility] Comment:NONE GIVEN Prev. Bx [facility] Comment:NONE GIVEN SOURCE: [facility] Comment:None given Pap, specimen adequacy [facility] Comment: Satisfactory for evaluation. Endocervical/transformation zone component present. HPV interp [facility] Comment:Negative for intraep ithelial lesion or malignancy. Infection: [facility] Comment: Fungal organisms morphologically consistent with Anh spp. COMMENTS [facility] Comment: This Pap test has been evaluated with computer assisted technology. Belt Notcher Que [facility] Comment: TMK, CT(ASCP) CT screening location: [place] [address] [place] [address] Review master cook [facility] Comment: BES, CT(ASCP) CT screening location: [place] [address] [place] [address] Comment [facility] Comment: EXPLANATORY NOTE: The Pap is a [...] High Risk E6/E7 Not Detected Not Detected [facility] Comment: Methodology: Tombstone Setter-Mediated Amplification This assay detects E6/E7 viral messenger RNA (mRNA) from 14 high-risk HPV types (16,18,31,33,35,39,45,51,52,56,58,59,66,68). The analytical performance characteristics of this assay have been determined by [employer]. The modifications have not been cleared or approved by the FDA. This assay has been validated pursuant to the CLIA regulations and is used for clinical purposes. For additional information, please refer to http://education.[employer]/faq/MFM883c3 (This link if provided for information/ educational purposes only.) Swab 02/05/2021 10:2 0 AM CDT 02/06/2021 1:57 AM CDT Ronda Macario MANAGER SUPPORT SERVICES LAB CYTOLOGY ORDERABLES Final Result [facility] [address] [place] [address] [facility] [address] [place] [address] * Screening Mammogram Bilateral W Luke (01/06/2018 [...] Most Recently Relevant to Health Maintenance Insurance [facility] MEDICARE SOLUTIONS IDPA [facility] AETNA SIGNATURE [facility] CHOICE PLUS [facility] HMO/PPO Address: [address] [address] [place] [address] IDPA MEDICARE SOLUTIONS [place] [id number] Care Teams Truck Chauffeur Relationship Specialty Start Date End Date Maria T Escobar MD [address] [place] [address] PCP - General Family Medicine 06/23/22 [place] [address] [place] [address] Dental Lab Technician Obstetrics and Gynecology 11/12/20 Janna Caruso MD [address] [place] [address] Consulting Physician Pain Management 10/18/18
--- OUTSIDE RECORDS SUMMARY | 2024-07-20 14:54 | XMS_ITS | Continuity of Care Document ---
Author Organization [facility] Address [address] [place] [address] Phone Care Team Providers Care Hand Straightener Name Role Phone Antolin Salmeron MD Unavailable Unavailable Advance Directives Directive Yes / No Effective Date File Name No Information Encounters Encounter Description Practice Location Reason(s) For Visit Diagnoses Date Provider Providers Copied on [facility] [address], [place], [place], [id number], [place] tel:[phone] [facility] No Information Jaron Dangelo. [address] [place], [place], [id number], [place]. tel:[phone] Referring Provider: Nick Weir DO, [facility] [address], [place], [address]. tel:[phone] Family History Family Member Type Diagnosis Age At Onset No Information Payers Payer name Insurance type Covered constitution party ID Authoriza tion(s) [facility] CI [id number] Social History Type Description Quantity Date [...]
--- OUTSIDE RECORDS SUMMARY | 2024-07-20 14:54 | XMS_ITS | Clinical Summary ---
Author Organization [facility] Address [address] [place] [address] Care Team Providers Care Top Bottom Attaching Machine Operator Name Role Phone Unavailable Primary Care Provider Unavailabl e Encounters Date Type Department Care Team Description 07/05/2024 External Device Data [facility] ABSTRACTION Provider, Abstract 07/04/2024 External Device Data [facility] ABSTRACTION Provider, Abstract 06/20/2024 External Device Data [facility] ABSTRACTION Provider, Abstract 06/01/2024 12:45 PM CERAMIC PAINTER [facility] [address] [place] [address] Jorgito Jaramillo MD Ot tear of medial meniscus, current injury, left knee, init 04/20/2024 1:00 PM CERAMIC PAINTER Ancillary Procedure [facility] [address] [place] [address] Janna Caruso MD Bilateral headaches from Last 3 Months Social History Tobacco [...] WO CONTRAST LEFT Routine 06/01/2024 1:16 PM CERAMIC PAINTER Oth tear of medial meniscus, current injury, left knee, init MRI BRAIN W WO CONTRAST Routine 04/20/2024 1:43 PM CERAMIC PAINTER Bilateral headaches from Last 3 Months Results * MRI KNEE WO CONTRAST LEFT (06/01/2024 1:16 PM CERAMIC PAINTER) Anatomical Region Laterality Modality Lower Extremity Magnetic Resonan ce 06/01/2024 1:17 PM CERAMIC PAINTER Impressions 06/01/2024 1:49 PM CERAMIC PAINTER IMPRESSION: 1. Nondisplaced horizontal undersurface tear of the body of the left medial meniscus. 2. Mild to moderate tendinopathy of the distal left semimembranosus tendon without evidence of associated tear. 3. Moderate to severe medial and patellofemoral compartment predominant tricompartmental left knee osteoarthritis with small effusion and trace Alfaro's cyst. Narrative 06/01/2024 1:49 PM CERAMIC PAINTER EXAM: MRI KNEE WO CONTRAST LEFT DATE: [...] small foci of subchondral edema. There is mpta-wv-xxkaxtzw partial-thickness chondrosis of the posterior weightbearing medial [...] bone marrow signal is normal. There is firl-ia-wbvtoynp tendinopathy of the distal semimembranosus tendon without evidence of tear. There is moderate anterior knee subcutaneous edema. Procedure [...] small foci of subchondral edema. There is wwan-ju-qeyzwxhb partial-thickness chondrosis of the posterior weightbearing medial [...] bone marrow signal is normal. There is ttpy-kp-tyirrfwg tendinopathy of the distal semimembranosus tendon without [...] with small effusion and trace Alfaro's cyst. Jorgito Jaramillo MD MR ORDERABLES Final Result * MRI BRAIN W WO CONTRAST (04/20/2024 1:43 PM CERAMIC PAINTER) Anatomical Region Laterality Modality Head Magnetic Resonan ce 04/20/2024 1:48 PM CERAMIC PAINTER Impressions 04/20/2024 2:05 PM CERAMIC PAINTER IMPRESSION: 1. No MR evidence of acute ischemia or bleed. No abnormal enhancing lesions. 2. Frontal cortical volume loss. 3. Small nonspecific nonenhancing white matter bright foci, could be incidental, in the appropriate clinical setting could be associated with chronic small vessel ischemic disease, prior trauma, demyelinating process to name a few. Narrative 04/20/2024 2:05 PM CERAMIC PAINTER IMAGING STUDIES: MRI BRAIN W WO CONTRAST [...] Final Result from Last 3 Months Insurance [facility] [id number]
--- OUTSIDE RECORDS SUMMARY | 2024-07-20 14:54 | XMS_ITS | Encounter Summary ---
Author Organization [facility] Healthcare Address [address] [place] [address] Care Team Providers Care Interior Specialist Name Role Phone Paul Sargent MD Primary Care Provider [phone] Solange Raza MD Primary Care Provider [phone] Unknown, Notinfile Primary Care Provider Unavail able Kaley Medina MD Unavailable [phone] No, Physician Primary Care Provider [phone] Kaley Medina MD Unavailable [phone] Janna Caruso MD Unavailable Maria T Escobar MD Primary Care Provider [phone] Encounter Details Date Type Department Care Team (Late st Contact Info) Description 01/17/2018 Hospital Encounter [facility] [address] [place] [address] Social History Tobacco Use Types Packs/Day Years [...] on file Legal Sex Female 1:56 AM GROCERY TEAM MEMBER Gender Identity Not on file Sexual Orientation [...] Chronic Care Management Worsening(1 08/01/2023 9:42 AM GROCERY TEAM MEMBER) No Sierra Isabel, RN Note: Problem: Chronic Pain Goals: 1. Minimize further functional decline 2. Maximize quality of life 3. Control pain Strategies: - Activity/exercise program recommendation - Conservative stepwise pain medicine strategy with multi-disciplinary approach - Recommend healthy lifestyle strategies and compensatory methods as needed Reduce the likelihood of falling Lifestyle On track(05/31 9:42 AM GROCERY TEAM MEMBER) Kitty Lind Note: Below are four things [...] documented as of this encounter Care Teams Interior Specialist Relationship Specialty Start Date End Date Paul Sargent MD [address] [place] [address] PCP - General 09/04/16 02/21/19 Solange Raza MD [address] [place] [address] PCP - General 02/22/19 10/21/20 Unknown, Notinfile PCP - General 10/22/20 11/11/20 No, Physician PCP - General 11/12/20 06/22/22 Maria T Escobar MD [address] [place] [address] PCP - General Family Medicine 06/23/22 Kaley Medina MD [address] [place] [address] Club Manager Obstetrics and Gynecology 11/12/20 Kaley Medina MD [address] [place] [address] Club Manager Obstetrics and Gynecology 11/12/20 11/12/20 Janna Caruso MD [address] [place] [address] Consulting Physician Pain Management 10/18/18 documented as of this encounter
--- OUTSIDE RECORDS SUMMARY | 2024-07-20 14:54 | XMS_ITS | Encounter Summary ---
Author Organization [facility] Healthcare Address [address] [place] [address] Care Team Providers Care Reactor Technician Name Role Phone Paul Sargent MD Primary Care Provider + [phone] Solange Raza MD Primary Care Provider + [phone] Unknown, Notinfile Primary Care Provider Unavail able Kaley Medina MD Unavailable [phone] No, Physician Primary Care Provider [phone] Kaley Medina MD Unavailable [phone] Janna Caruso MD Unavailable Maria T Escobar MD Primary Care Provider [phone] Reason for Visit * Reason Onset Date Comments Med Refill 02/23/2018 Hydrocodone 5/32 5 #90 Carisoprodol 305MG #90 Please mail to home address Encounter Details Date Type Department Care Team (Late st Contact Info) Description 02/23/2018 Telephone [facility] at [address] [place] [address] Paul Rolon MD [address] [address] Med Refill (Hydrocodone 5/325 #90 [...] on file Legal Sex Female 1:56 AM RELATIONSHIP MANAGER Gender Identity Not on file Sexual Orientation [...] Chronic Care Management Worsening(1 08/01/2023 9:42 AM RELATIONSHIP MANAGER) No Sierra Isabel, RN Note: Problem: Chronic Pain Goals: 1. Minimize further functional decline 2. Maximize quality of life 3. Control pain Strategies: - Activity/exercise program recommendation - Conservative stepwise pain medicine strategy with multi-disciplinary approach - Recommend healthy lifestyle strategies and compensatory methods as needed Reduce the likelihood of falling Lifestyle On track(05/31 9:42 AM RELATIONSHIP MANAGER) Kitty Lind Note: Below are four things [...] documented as of this encounter Care Teams Reactor Technician Relationship Specialty Start Date End Date Paul Sargent MD [address] [place] [address] PCP - General 09/04/16 02/21/19 Solange Raza MD [address] [place], [place] [id number] PCP - General 02/22/19 10/21/20 Unknown, Notinfile PCP - General 10/22/20 11/11/20 No, Physician PCP - General 11/12/20 06/22/22 Maria T Escobar MD [address] [place] [address] PCP - General Family Medicine 06/23/22 Kaley Medina MD [address] [place] [address] [employer] [facility] Obstetrics and Gynecology 11/12/20 [place] [address] [place] [address] Stereotyper Helper Obstetrics and Gynecology 11/12/20 11/12/20 Janna Caruso MD [address] [place] [address] Consulting Physician Pain Management 10/18/18 documented as of this encounter
--- OUTSIDE RECORDS SUMMARY | 2024-07-20 14:54 | XMS_ITS | Continuity of Care Document ---
Author Organization [facility] Address [address] [place] [address] Phone Care Team Providers Care Inspector Metal Fabricating Name Role Phone Anna Bueno Unavailable Unavailable Advance Directives Directive Yes / No Effective Date File Name No Information Encounters Encounter Description Practice Location Reason(s) For Visit Diagnoses Date Provider Providers Copied on Encounter [facility], [address] [place] [address] [address], [place], [place], [id number], [place] tel:[phone] [facility] No Information 0 [phone] Ximena Castillo. [address] , [address], [place], [address], [place]. tel:[phone] Family History Family Member Type Diagnosis Age At Onset No Information Payers Payer name Insurance type Covered constitution party ID Authoriza tion(s) General [employer] [id number] Social History Type Description Quantity Date Captured [...]
--- OUTSIDE RECORDS SUMMARY | 2024-07-20 14:54 | XMS_ITS | Encounter Summary ---
Author Organization [facility] Healthcare Address [address] [place] [address] Care Team Providers Care Engraving Press Operator Name Role Phone Paul Sargent MD Primary Care Provider +- [phone] Solange Raza MD Primary Care Provider +- [phone] Unknown, Notinfile Primary Care Provider Unavail able Kaley Medina MD Unavailable [phone] No, Physician Primary Care Provider [phone] Kaley Medina MD Unavailable [phone] Janna Caruso MD Unavailable Maria T Escobar MD Primary Care Provider [phone] Encounter Details Date Type Department Care Team (Late st Contact Info) Description 07/06/2018 Telephone [facility] at [place] [address] [facility] [address] [place] [address] Khushboo Lunsford RN Social History Tobacco Use Types Packs/Day Years Used Date Smoking Tobacco: Former Cigarettes Q uit: 12/02/2005 Smokeless Tobacco: Never Alcohol Use Standard Drinks/Week Comments No 0 (1 standard drink = 0.6 oz pur e alcohol) Comments No Sex and Gender Information Value Date Recorded Sex Assigned at Not on file Legal Sex Female 1:56 AM FANCY PACKER Gender Identity Not on file Sexual Orientation Not on file documented as of this encounter Plan of Treatment Not on file documented as of this encounter Goals Goal Patient Goal Type Associated Problems Recent Progress Patient-Stated? Author CCM Chronic Pain Care Plan Chronic Care Management Worsening(1 08/01/2023 9:42 AM FANCY PACKER) No Sierra Isabel, RN Note: Problem: Chronic Pain Goals: 1. Minimize further functional decline 2. Maximize quality of life 3. Control pain Strategies: - Activity/exercise program recommendation - Conservative stepwise pain medicine strategy with multi-disciplinary approach - Recommend healthy lifestyle strategies and compensatory methods as needed Reduce the likelihood of falling Lifestyle On track(05/31 9:42 AM FANCY PACKER) Kitty Lind Note: Below are four [...] on stairs Contact your local community or [facility] for information on exercise, fall prevention programs, or options for improving home safety. 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/2012 08/30/201201/29 5:00 AM CDT documented as of this encounter Care Teams Engraving Press Operator Relationship Specialty Start Date End Date Paul Sargent MD [address] [place], [place] [id number] PCP - General 09/04/16 02/21/19 Solange Raza MD [address] [address] PCP - General 02/22/19 10/21/20 Unknown, Notinfile PCP - General 10/22/20 11/11/20 No, Physician PCP - General 11/12/20 06/22/22 Maria T Escobar MD [address] [facility] [place] [address] PCP - General Family Medicine 06/23/22 Kaley Medina MD [address] [place] [address] Platen Press Operator Obstetrics and Gynecology 11/12/20 Kaley Medina MD [address] [place] [address] Platen Press Operator Obstetrics and Gynecology 11/12/20 11/12/20 Janna Caruso MD [address] [facility] [place] [address] Consulting Physician Pain Management 10/18/18 documented as of this encounter
== END 2024-07-20 14:39 | disposition home or self-care (01) ==
PROVIDERS: PCP Family Medicine; Visit Provider Family Medicine
DX: Z12.31 Encounter for screening mammogram for malignant neoplasm of breast (principal)
CPT/HCPCS: 77063; 77067

== ENCOUNTER 2024-08-07 13:43 | Emergency (ER) | payer OTHER, MEDICARE, SELFPAY ==
--- NOTE | ~2024-08-07 | CT_ITS ---
History: Headache PROCEDURE: CT head without contrast. COMPARISON: None TECHNIQUE: Axial imaging of the head performed from the skull base to the vertex without IV contrast. Sagittal a nd coronal reformations obtained. DLP: 605 mGy-cm FINDINGS: The ventricles are normal in size, shape and position. There is no mass, mass effect or midline shift. There is no abnormal extra-axial fluid collection or intracranial hemorrhage. Visualized paranasal sinuses are clear. The mastoid air cells are well aerated. No acute displaced fractures within the overlying cranium. Impression: No acute intracranial hemorrhage or suspicious mass effect. Reviewed, dictated and finalized at location A. HOUSE SUPERVISOR Impression: No acute intracranial hemorrhage or suspicious mass effect.
--- NOTE | ~2024-08-07 | XR_ITS ---
EXAMINATION: XR chest 1V Exam Date/Time: 08/07/2024 16:00 AUTOMOTIVE ENGINEERING TECHNICIAN HISTORY: HTN, palpitations Comparison: 07/12/2023. RESULT: Lines, tubes, and devices: None. Lungs and pleura: Lordotic positioning. Subsegmental opacity in the left lung base at the heart apex . Cardiomediastinal silhouette: Possible small hiatal hernia, otherwise unremarkable. Other: No acute osseous or upper abdominal finding. IMPRESSION: Small focus of subsegmental atelectasis/consolidation in the left lower lung versus artifact from pos itioning and pericardial fat pad. Reviewed, dictated and finalized at location K. MOTIVE ENGINEERING TECHNICIAN IMPRESSION: Small focus of subsegmental atelectasis/consolidation in the left lower lung ve rsus artifact from positioning and pericardial fat pad.
[2024-08-07 14:12] VITALS: BP 214/105; PULSE 70; RESP 19; TEMP 36.5; O2SAT 100
--- NOTE | 2024-08-07 15:03 | ECG_ITS ---
Test Date: 2024-08-07 15:21:44 Measurements Intervals [place] Rate: 60 P: 37 MA: 145 QRS: -1 QRSD: 76 T: 22 QT: 401 QTc: 401 Interpretive Statements SINUS RHYTHM DELAYED PRECORDIAL R/S TRANSITION LEFT VENTRICULAR HYPERTROPHY BASELINE ARTIFACT- I, II, III, AVR, AVL, AVF BORDERLINE ECG Compared to ECG 07/05/2024 12:47:15 No significant changes Electronically Signed On 08-07-2024 16:22:18 JALOUSIE INSTALLER by Enmanuel Boston D.O.
--- NOTE | 2024-08-07 15:08 | ED.GENADULT ---
HPI - General Adult General Chief complaint: Recheck/Abnormal Lab/Rx <Rachana Renae PA-C - Last Filed: 08/07/24 15:10> Stated complaint: HTN <Rachana Renae PA-C - Last Filed: 08/07/24 15:10> Time Seen by Provider: 08/07/24 18:43 <Rachana Renae PA-C - Last Filed: 08/07/24 15:10> Focused HPI: 63-year-old female presents to the emergency department with at bedside for hypertension. Patient has remote history of hypertension was taken off her antihypertensive 6 months ago as directed by her financial adviser. On Wednesday the patient went to her pain management appointment where she had a blood pressure taken and was found to be elevated. She was advised to take a blood pressure log and follow-up with her PCP. States she has been taking a blood pressure log since and has steadily increased, max today was 224/117. She contacted her PCP, Dr. Escobar, was advised to come to the ER. The patient states today while she was trying to get her coffee she felt very confusing cannot figure out a for herself coffee which is abnormal. The patient's in appetite states patient is seemed more lethargic and confused when compared to her baseline. The patient denies chest pain but is reporting some palpitations. She does known history of anxiety and take her hydroxyzine today without much improvement. Denies vision changes, focal numbness or weakness. GENERAL: Well-appearing, well-nourished, and in no acute distress. HEAD: Normocephalic, atraumatic. CHEST: Clear to auscultation. ?No respiratory distress. HEART: Regular rate and rhythm.? NEURO: ?Alert and oriented x3. Patient screened in triage and initial orders placed.? ?Additional care and disposition to be based upon?diagnostic testing and treatment. <Rachana Renae PA-C - Last Filed: 08/07/24 15:10> Focused HPI: 63-year-old female presents to the emergency department with at bedside for hypertension. Patient has history of hypertension was taken off her antihypertensive (Metoprolol) 6 months ago as directed by her financial adviser. On Wednesday the patient went to her pain management appointment where she had a blood pressure taken and was found to be elevated. She was advised to take a blood pressure log and follow-up with her PCP. States she has been taking a blood pressure log since and has steadily increased, max today was 224/117. She contacted her PCP, Dr. Escobar, was advised to come to the ER. The patient states today while she was trying to get her coffee she felt confused. The patient denies chest pain but is reporting some palpitations. She does known history of anxiety and take her hydroxyzine today without much improvement. Denies vision changes, focal numbness or weakness. GENERAL: Well-appearing, well-nourished, and in no acute distress. HEAD: Normocephalic, atraumatic. CHEST: Clear to auscultation. ?No respiratory distress. HEART: Regular rate and rhythm.? NEURO: ?Alert and oriented x3. Patient screened in triage and initial orders placed.? ?Additional care and disposition to be based upon?diagnostic testing and treatment. <Magaly Hawthorne PA-C - Last Filed: 08/07/24 21:52> Related Data Home medications: Home Medications ?Medication ?Instructions ?Recorded ?Confirmed ?Last Taken ?Type baclofen 10 mg tablet 10 mg PO TID 06/15/19 07/27/24 07/11/24 History cholecalciferol (vitamin D3) 50 2,000 unit PO DAILY 06/15/19 07/27/24 07/09/24 History mcg (2,000 unit) tablet hydrocodone 5 mg-acetaminophen 325 2 tablet PO TID PRN Pain 06/15/19 07/27/24 11/04/22 History mg tablet ascorbic acid (vitamin C) 500 mg 500 mg PO DAILY 08/01/19 07/27/24 07/09/24 History capsule aspirin 81 mg tablet,delayed 81 mg PO DAILY 08/01/19 07/27/24 07/07/24 History release (Adult Low Dose Aspirin) biotin 10,000 mcg capsule 10,000 mcg PO DAILY 08/01/19 07/27/24 07/09/24 History mecobalamin (vitamin B12) 1,000 1,000 mcg PO DAILY 08/01/19 07/27/24 07/09/24 History mcg chewable tablet vitamin E (dl, acetate) 180 mg 400 unit PO DAILY 08/01/19 07/27/24 07/09/24 History (400 unit) capsule hydroxyzine HCl 25 mg tablet 25 mg PO QID PRN Anxiety 08/03/22 07/27/24 11/03/22 History duloxetine 30 mg capsule,delayed 90 mg PO DAILY 10/14/22 07/27/24 07/11/24 History release (Cymbalta) calcium polycarbophil 625 mg 1,250 mg PO DAILY 07/05/24 07/27/24 07/09/24 History tablet (Fiber (calcium polycarbophil)) magnesium 250 mg tablet 250 mg PO DAILY 07/05/24 07/27/24 07/11/24 History <Rachana Renae PA-C - Last Filed: 08/07/24 15:10> Allergies/adverse reactions: Allergies Allergy/AdvReac Type Severity Reaction Status Date / Time gabapentin Allergy Severe disorientat Verified 07/27/24 07:23 ion morphine AdvReac Intermediate Nausea and Verified 07/27/24 07:23 Vomiting codeine AdvReac Mild Nausea Verified 07/27/24 07:23 cortisone AdvReac Mild Nausea Verified 07/27/24 07:23 erythromycin base AdvReac Mild Nausea Verified 07/27/24 07:23 Penicillins AdvReac Mild Nausea Verified 07/27/24 07:23 <Rachana Renae PA-C - Last Filed: 08/07/24 15:10> Review of Systems Review of Systems: CONSTITUTIONAL: Denies fever CARDIOVASCULAR: Denies chest pain RESPIRATORY: Denies dyspnea. NEUROLOGIC: Reports headache. Denies numbness, or weakness. <Magaly Hawthorne PA-C - Last Filed: 08/07/24 21:52> All systems reviewed & are unremarkable except as noted in HPI and below <Magaly Hawthorne PA-C - Last Filed: 08/07/24 21:52> [facility] Past Medical History Medical History: Medical History (Reviewed 07/27/24 @ 07:23 by Nikki Laurent [facility]) Inflammatory arthritis Chronic narcotic use Tear of medial meniscus of left knee De Quervain's tenosynovitis, right First dorsal compartment release, 08/03/[address] Murphy Pain in left wrist DJD (degenerative joint disease), lumbar Lumbosacral radiculopathy due to degenerative joint disease of spine Hormone replacement therapy Primary hypertension Chronic left SI joint pain Herniated disc Heartburn Anxiety Hypertension Hyperlipidemia SVT (supraventricular tachycardia) Congenital fusion of sacroiliac joint Chronic back pain <Rachana Renae PA-C - Last Filed: 08/07/24 15:10> Surgical History Surgical History: Surgical History H/O arthroscopic knee surgery 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 decompression May 2014 History of carpal tunnel release 1995 History of foot surgery Hammer toe 1993 History of tonsillectomy 1973 History of sacrocolpopexy 07/2016- History of abdominoplasty 2001 H/O: hysterectomy 1991 H/O section 1977,1979,1984 <Rachana Renae PA-C - Last Filed: 08/07/24 15:10> Family History Family History: Family History Father Hypertension Family history of lung cancer Diabetes mellitus Grandparent Hypertension Pulmonary embolism Sibling Hypertension Heart disease Mother Hypertension Diabetes mellitus Breast cancer CHF (congestive heart failure) <Rachana Renae PA-C - Last Filed: 08/07/24 15:10> Social History Social History: Social History Smoking packs per day: 1 Smoking cigarettes per day: 20.0 Years smoked: 20 Smoking pack-years: 20.00 Smoking status: Former smoker Tobacco type: cigarettes Second hand tobacco smoke exposure: No Smoking end date: 07/05/05 Additional smoking assessment comments: cigarettes 1ppd x30 years Alcohol intake: current Drinks per week: 1 Alcohol use details: occassionally Substance use: never Substance use type: does not use Other substance usage details: PATIENT GETS THIS FROM PAIN MANAGEMENT. Do You Feel Safe in your Home?: Yes Lack of Transportation: No Lack of Food: Never True Current Housing: I Have Housing Concerned About Future Housing: No Difficulty Paying Gas/Electric Bills: No Difficulty Paying for Meds: No Currently Unemployed: No Education: Bachelor's Degree Difficulty w/ Childcare or Family Care: No Living arrangements: with family Additional living arrangements comments: Spouse Occupation/Education: unemployed Gender identity (if verbalized by the patient): Female Spiritual care concerns: No <MARIAM Cosme Last Filed: 08/07/24 15:10> Exam Narrative: GENERAL: Well-appearing, well-nourished, and in no acute distress. HEAD: Normocephalic, atraumatic. EYES: PERRLA and EOMI. ENT: Nares clear, no rhinorrhea or epistaxis. Mucous membranes moist. Oropharynx without tonsillar hypertrophy exudate or other lesions. NECK: Supple. No adenopathy or masses. No JVD CHEST: Clear to auscultation. No respiratory distress. No wheezes rales or rhonchi HEART: Regular rate and rhythm. No murmur heard. Normal peripheral pulses. EXTREMITIES: Normal range of motion. No edema. SKIN: Warm, dry, no rash. NEURO: No focal deficits. Alert and oriented x3. CN II-XII grossly intact PSYCH: Normal mood and affect <MARIAM Toro Last Filed: 08/07/24 21:52> Course Course Emergency Course: Patient updated on her workup. Resting comfortably. Reports feeling better <MARIAM Toro Last Filed: 08/07/24 21:52> Vital Signs Vital signs: Vital Signs Temperature 97.7 F 08/07/24 14:12 Pulse Rate 70 08/07/24 14:12 Respiratory Rate 19 08/07/24 14:12 Blood Pressure 214/105 H 08/07/24 14:12 Pulse Oximetry 100 08/07/24 14:12 Temperature 97.7 F 08/07/24 14:12 Pulse Rate 60 08/07/24 20:29 Respiratory Rate 18 08/07/24 20:29 Blood Pressure 183/88 H 08/07/24 20:29 Pulse Oximetry 96 08/07/24 20:29 <Rachana Renae PA-C - Last Filed: 08/07/24 15:10> Vital Signs Temperature 97.7 F 08/07/24 14:12 Pulse Rate 70 08/07/24 14:12 Respiratory Rate 19 08/07/24 14:12 Blood Pressure 214/105 H 08/07/24 14:12 Pulse Oximetry 100 08/07/24 14:12 Temperature 97.7 F 08/07/24 14:12 Pulse Rate 60 08/07/24 20:29 Respiratory Rate 18 08/07/24 20:29 Blood Pressure 183/88 H 08/07/24 20:29 Pulse Oximetry 96 08/07/24 20:29 <Magaly Hawthorne PA-C - Last Filed: 08/07/24 21:52> Medical Decision Making MDM Narrative Medical decision making narrative: Patient presents the emergency department for headaches and elevated blood pressure readings. Reports history of hypertension, but was taken off her antihypertensive about 6 months ago. Blood pressure elevated in the 200s upon arrival. Given dose of her blood pressure medication with improvement. Blood pressures in the 160s to 180s systolic. She is neurologically intact. CBC and metabolic panel without concerning findings. Urine without evidence of infection. EKG shows sinus rhythm. CT brain without acute findings. Chest x-ray with likely atelectasis. Patient updated on her workup. Resting comfortably. Reports feeling better. Patient will be restarted on her antihypertensive and was instructed to have close follow-up with her primary provider. She was given warnings to return to the ER <Magaly Hawthorne PA-C - Last Filed: 08/07/24 21:52> Differential Diagnosis Differential Diagnosis: Hypertension, hypertensive urgency, brain mass, intracranial hemorrhage <Magaly Hawthorne PA-C - Last Filed: 08/07/24 21:52> Vital Signs Vital Signs: Vital Signs Temperature 97.7 F 08/07/24 14:12 Pulse Rate 70 08/07/24 14:12 Respiratory Rate 19 08/07/24 14:12 Blood Pressure 214/105 H 08/07/24 14:12 Pulse Oximetry 100 08/07/24 14:12 Temperature 97.7 F 08/07/24 14:12 Pulse Rate 60 08/07/24 20:29 Respiratory Rate 18 08/07/24 20:29 Blood Pressure 183/88 H 08/07/24 20:29 Pulse Oximetry 96 08/07/24 20:29 <Rachana Renae PA-C - Last Filed: 08/07/24 15:10> Vital Signs Temperature 97.7 F 08/07/24 14:12 Pulse Rate 70 08/07/24 14:12 Respiratory Rate 19 08/07/24 14:12 Blood Pressure 214/105 H 08/07/24 14:12 Pulse Oximetry 100 08/07/24 14:12 Temperature 97.7 F 08/07/24 14:12 Pulse Rate 60 08/07/24 20:29 Respiratory Rate 18 08/07/24 20:29 Blood Pressure 183/88 H 08/07/24 20:29 Pulse Oximetry 96 08/07/24 20:29 <Magaly Hawthorne PA-C - Last Filed: 08/07/24 21:52> Lab Data Lab results reviewed: Yes I reviewed the patient's lab results. <Magaly Hawthorne PA-C - Last Filed: 08/07/24 21:52> Result diagrams: 08/07/24 15:15 08/07/24 19:11 <Rachana Renae PA-C - Last Filed: 08/07/24 15:10> Labs: Lab Results 08/07/24 08/07/24 08/07/24 Range/Units 15:15 19:10 19:11 WBC 10.4 H (4.5-10.0) K/mm3 RBC 4.58 (4.2-5.4) M/mm3 Hgb 13.3 (12.0-15.0) g/dL Hct 41.3 (37.0-47.0) % MCV 90.2 (80-100) fl MCH 29.0 (26-34) pg MCHC 32.2 (32-36) g/dl RDW 14.9 H (11.5-14.5) % Plt Count 271 D (150-375) k/mm3 MPV 9.4 (7.4-10.4) fl Immature Gran % (Auto) 0.4 (0-0.5) % Neut % (Auto) 67.6 (45.5-73.1) % Lymph % (Auto) 23.8 (18.3-44.2) % Park % (Auto) 6.5 (2.6-8.5) % Eos % (Auto) 0.8 (0-4.4) % Baso % (Auto) 0.9 (0.2-1.2) % Lymph # (Auto) 2.48 (0.9-3.2) K/mm3 Park # (Auto) 0.7 H (0.1-0.6) K/mm3 Eos # (Auto) 0.1 (0-0.3) K/mm3 Baso # (Auto) 0.1 (0.0-0.1) K/mm3 Abs Immat Gran (auto) 0.04 H (0.00-0.031) K/mm3 Absolute Neuts (auto) 7.1 H (1.3-6.7) K/mm3 Absolute Nucleated RBC 0.000 (0.0-0.012) K/mm3 Nucleated RBC % 0.0 (0.0-0.2) % PT 12.7 (11.1-14.7) Seconds INR 0.9 APTT 24.6 (22.3-36.8) Seconds Sodium 140 (137-145) mmol/L Potassium 4.2 (3.4-5.0) mmol/L Chloride 101 (98-107) mmol/L Carbon Dioxide 28 (22-30) mmol/L Anion Gap 11 (4-12) mmol/L BUN 18 H (7-17) mg/dL Creatinine 0.58 L (0.7-1.0) mg/dL Estim Creat Clear Calc 86 ml/min Estimated GFR > 60 (59 - ) Glucose 97 (65-110) mg/dL Calcium 9.7 (8.4-10.2) mg/dL Total Bilirubin 0.6 (0.2-1.3) mg/dL AST 27 (14-36) U/L ALT 26 (6-35) U/L Alkaline Phosphatase 96 (38-126) U/L Troponin I < 0.012 (0.000-0.034) ng/mL Total Protein 8.0 (6.3-8.2) g/dL Albumin 4.5 (3.5-5.1) g/dL Urine Color Yellow (Yellow) Urine Appearance Clear (Clear) Urine pH 7.0 (5.0-9.0) Ur Specific Henderson 1.009 (1.001-1.035) Urine Protein Negative (Negative) mg/dL Urine Glucose (UA) Negative (Negative) mg/dL Urine Ketones Negative (Negative) mg/dL Ur Blood (Man) Negative (Negative) Urine Nitrate Negative (Negative) Urine Bilirubin Negative (Negative) Urine Urobilinogen 0.2 (<2.0) mg/dL Leukocyte Esterase Rfl Negative (Negative) TATA/UL <Rachana Renae PA-C - Last Filed: 08/07/24 15:10> Lab Results 08/07/24 08/07/24 08/07/24 Range/Units 15:15 19:10 19:11 WBC 10.4 H (4.5-10.0) K/mm3 RBC 4.58 (4.2-5.4) M/mm3 Hgb 13.3 (12.0-15.0) g/dL Hct 41.3 (37.0-47.0) % MCV 90.2 (80-100) fl MCH 29.0 (26-34) pg MCHC 32.2 (32-36) g/dl RDW 14.9 H (11.5-14.5) % Plt Count 271 D (150-375) k/mm3 MPV 9.4 (7.4-10.4) fl Immature Gran % (Auto) 0.4 (0-0.5) % Neut % (Auto) 67.6 (45.5-73.1) % Lymph % (Auto) 23.8 (18.3-44.2) % Park % (Auto) 6.5 (2.6-8.5) % Eos % (Auto) 0.8 (0-4.4) % Baso % (Auto) 0.9 (0.2-1.2) % Lymph # (Auto) 2.48 (0.9-3.2) K/mm3 Park # (Auto) 0.7 H (0.1-0.6) K/mm3 Eos # (Auto) 0.1 (0-0.3) K/mm3 Baso # (Auto) 0.1 (0.0-0.1) K/mm3 Abs Immat Gran (auto) 0.04 H (0.00-0.031) K/mm3 Absolute Neuts (auto) 7.1 H (1.3-6.7) K/mm3 Absolute Nucleated RBC 0.000 (0.0-0.012) K/mm3 Nucleated RBC % 0.0 (0.0-0.2) % PT 12.7 (11.1-14.7) Seconds INR 0.9 APTT 24.6 (22.3-36.8) Seconds Sodium 140 (137-145) mmol/L Potassium 4.2 (3.4-5.0) mmol/L Chloride 101 (98-107) mmol/L Carbon Dioxide 28 (22-30) mmol/L Anion Gap 11 (4-12) mmol/L BUN 18 H (7-17) mg/dL Creatinine 0.58 L (0.7-1.0) mg/dL Estim Creat Clear Calc 86 ml/min Estimated GFR > 60 (59 - ) Glucose 97 (65-110) mg/dL Calcium 9.7 (8.4-10.2) mg/dL Total Bilirubin 0.6 (0.2-1.3) mg/dL AST 27 (14-36) U/L ALT 26 (6-35) U/L Alkaline Phosphatase 96 (38-126) U/L Troponin I < 0.012 (0.000-0.034) ng/mL Total Protein 8.0 (6.3-8.2) g/dL Albumin 4.5 (3.5-5.1) g/dL Urine Color Yellow (Yellow) Urine Appearance Clear (Clear) Urine pH 7.0 (5.0-9.0) Ur Specific Henderson 1.009 (1.001-1.035) Urine Protein Negative (Negative) mg/dL Urine Glucose (UA) Negative (Negative) mg/dL Urine Ketones Negative (Negative) mg/dL Ur Blood (Man) Negative (Negative) Urine Nitrate Negative (Negative) Urine Bilirubin Negative (Negative) Urine Urobilinogen 0.2 (<2.0) mg/dL Leukocyte Esterase Rfl Negative (Negative) TATA/UL <Magaly Hawthorne PA-C - Last Filed: 08/07/24 21:52> Imaging Data Radiologist's impression: ITS Impressions Head CT 08/07/24 15:31 Impression: No acute intracranial hemorrhage or suspicious mass effect. Chest X-Ray 08/07/24 16:05 IMPRESSION: Small focus of subsegmental atelectasis/consolidation in the left lower lung versus artifact from positioning and pericardial fat pad. <Magaly Hawthorne PA-C - Last Filed: 08/07/24 21:52> ECG Data EKG #1: ECG completion date: 08/07/24 <MARIAM Toro Last Filed: 08/07/24 21:52> EKG Interpretation: normal rate, sinus rhythm, no ST changes and normal QT <Magaly Hawthorne PA-C - Last Filed: 08/07/24 21:52> Critical Care Time Critical Care Time Critical Care Time: No <Magaly Hawthorne PA-C - Last Filed: 08/07/24 21:52> Discharge Plan Discharge Clinical Impression: Hypertension Qualifiers: Hypertension type: unspecified Qualified Code(s): I10 - Essential (primary) hypertension <MARIAM Cosme Last Filed: 08/07/24 15:10> Patient Disposition: Home, Self-Care <MARIAM Cosme Last Filed: 08/07/24 15:10> Condition: Improved <MARIAM Cosme Last Filed: 08/07/24 15:10> Instructions: Hypertension (ED) <MARIAM Cosme Last Filed: 08/07/24 15:10> Additional Instructions: Return to the emergency department if you experience fever, chest pain, shortness of breath, abdominal pain with nausea and vomiting, weakness, numbness, or any other symptoms that are concerning to you. Continue to monitor your blood pressure and take blood pressure medication as prescribed Follow up with your primary care doctor <Rachana Renae PA-C - Last Filed: 08/07/24 15:10> Patient Language: Lithuanian <MARIAM Cosme Last Filed: 08/07/24 15:10> Prescriptions: New metoprolol tartrate 50 mg tablet 50 mg PO BID 30 Days Qty: 60 0RF No Action aspirin [Adult Low Dose Aspirin] 81 mg tablet,delayed release (DR/EC) 81 mg PO DAILY ascorbic acid (vitamin C) 500 mg capsule 500 mg PO DAILY vitamin E (dl, acetate) 400 unit capsule 400 unit PO DAILY biotin 10,000 mcg capsule 10,000 mcg PO DAILY mecobalamin (vitamin B12) 1,000 mcg tablet,chewable 1,000 mcg PO DAILY duloxetine [Cymbalta] 30 mg capsule,delayed release(DR/EC) 90 mg PO DAILY meloxicam 15 mg tablet 15 mg PO DAILY Qty: 90 1RF hydrocodone-acetaminophen 5-325 mg tablet 2 tablet PO TID PRN (Reason: Pain) Rx Instructions: TAKE 1-2 TABLETS BY MOUTH THREE TIMES DAILY NEEDED. baclofen 10 mg tablet 10 mg PO TID Patient Comments: Says takes as needed. cholecalciferol (vitamin D3) 2,000 unit tablet 2,000 unit PO DAILY hydroxyzine HCl 25 mg tablet 25 mg PO QID PRN (Reason: Anxiety) calcium polycarbophil [Fiber (calcium polycarbophil)] 625 mg tablet 1,250 mg PO DAILY magnesium 250 mg tablet 250 mg PO DAILY lansoprazole 30 mg capsule,delayed release(DR/EC) See Rx Instructions .ROUTE .COMPLEX Qty: 100 2RF Dose Instruction: TAKE 1 CAPSULE BY MOUTH DAILY Rx Instructions: TAKE 1 CAPSULE BY MOUTH DAILY atorvastatin 40 mg tablet See Rx Instructions .ROUTE .COMPLEX Qty: 100 2RF Dose Instruction: TAKE 1 TABLET BY MOUTH DAILY Rx Instructions: TAKE 1 TABLET BY MOUTH DAILY <Rachana Renae PA-C - Last Filed: 08/07/24 15:10> Follow-up/Referrals: Maria T Escobar MD [Primary Care Provider] - <Rachana Renae PA-C - Last Filed: 08/07/24 15:10>
[2024-08-07 15:20] LABS: Basophils Absolute Auto 0.1 K/mm3 (0.0-0.1); Basophils Percent Auto 0.9 % (0.2-1.2); Eosinophils Absolute Auto 0.1 K/mm3 (0-0.3); Eosinophils Percent Auto 0.8 % (0-4.4); Hematocrit 41.3 % (37.0-47.0); Hemoglobin 13.3 g/dL (12.0-15.0); Immature Granulocyte Absolute 0.04 K/mm3 (0.00-0.031); Immature Granulocyte Percent A 0.4 % (0-0.5); Lymphocytes Absolute Auto 2.48 K/mm3 (0.9-3.2); Lymphocytes Percent Auto 23.8 % (18.3-44.2); Mean Corpuscular HGB Conc 32.2 g/dl (32-36); Mean Corpuscular Volume 90.2 fl (80-100); Mean Platelet Volume 9.4 fl (7.4-10.4); Monocytes Absolute Auto 0.7 K/mm3 (0.1-0.6); Monocytes Percent Auto 6.5 % (2.6-8.5); Neutrophils Absolute Auto 7.1 K/mm3 (1.3-6.7); Neutrophils Percent Auto 67.6 % (45.5-73.1); Platelet Count Result 271 k/mm3 (150-375); Red Blood Count 4.58 M/mm3 (4.2-5.4); Red Cell Distribution Width 14.9 % (11.5-14.5); White Blood Count 10.4 K/mm3 (4.5-10.0)
[2024-08-07 15:44] LABS: INR 0.9; Prothrombin Time 12.7 Seconds (11.1-14.7)
[2024-08-07 15:45] LABS: Partial Thromboplastin Time 24.6 Seconds (22.3-36.8)
--- OUTSIDE RECORDS SUMMARY | 2024-08-07 15:48 | XMS_ITS | Clinical Summary ---
Author Organization [facility] Address [address] [place] [address] Care Team Providers Care Paper Gluing Operator Name Role Phone Kaley Medina MD Unavailable Janna Caruso MD Unavailable Maria T Escobar MD Primary Care Provider [phone] Allergies Active Allergy Reactions Criticality Noted Date [...] 1 tablet (40 mg total) by mouth 01/31/20 16 Active lansoprazole (PREVACID) 30 mg capsule daily. 09/14/19 08 Active aspirin 81 mg tablet daily. 09/14/19 08 Active ascorbic acid (VITAMIN C) 500 mg tablet,chewabl e Take 1 tablet/chew tab (500 mg total) by mouth Active cholecalcifero l (VITAMIN D-3) 25 mcg (1,000 unit) tablet Take 1 tablet (1,000 Units total) by mouth Active vitamin E acid succinate (VITAMIN E SUCCINATE) 400 unit tablet Take 400 Units by mouth. Active magnesium oxide (MAG-OX) 400 mg (241.3 mg elemental magnesium) tabletIndicati ons:hypomagnes emia Take 1 tablet (400 mg total) by mouth Active cyanocobalamin (Vitamin B-12) 2,500 mcg tablet, sublingualIndi cations:Preven tion of Vitamin B12 Deficiency Take 1 tablet (2,500 mcg total) by mouth Active biotin 5 mg tablet Take 10 mg by mouth. Active psyllium (KONSYL) powder Take 150 mg by mouth. Active NARCAN 4 mg/actuation spray,non-aero fred 07/30/19 19 Active baclofen (LIORESAL) 10 mg tablet Take 1 tablet (10 mg total) by mouth 3 (three) times a day 180 tablet 08/28/19 23 Active acetaminophen 500 mg capsule Take 2 capsules (1,000 mg total) by mouth 3 (three) times a day Active soy isofla-blk cohosh-mag bark (Estroven) 155 mg capsule Take by mouth Active meloxicam (MOBIC) 15 mg tablet TAKE 1 TABLET BY MOUTH DAILY 100 tablet 1 03/16/20 24 Active hydrOXYzine (ATARAX) 25 mg tablet TAKE 1 TABLET BY MOUTH EVERY 8 HOURS NEEDED FOR ITCHING 300 tablet 1 03/16/20 24 Active ALPRAZolam (XANAX) 0.5 mg tablet Take 2 tablets (1 mg total) by mouth once as needed for anxiety for up to 1 dose 1 tablet 1 04/05/20 24 Active HYDROcodone-ac etaminophen (NORCO) 5-325 mg per tabletIndicati ons:Pain Take 1-2 tablets by mouth 3 (three) times a day as needed for pain 180 tablet 07/22/[address] (CYMBALTA) 60 mg capsule Take 1 capsule (60 mg total) by mouth 2 (two) times a day 180 capsule 1 07/24/[address] (CYMBALTA) 60 mg capsule Take 1 capsule (60 mg total) by mouth 2 (two) times a day 180 capsule 1 01/30/20 24 025 Discontinued HYDROcodone-ac etaminophen (NORCO) 5-325 mg per tabletIndicati ons:Pain Take 1-2 tablets by mouth 3 (three) times a day as needed for pain 180 tablet 06/21/19 25 025 Discontinued(Re order) Active Problems Problem Noted Date Diagnosed Date Bradycardia, unspecified 04/21/2023 Encounter for colonoscopy du e to history of adenomatous colonic polyps 06/25/2022 Overview (06/25/2022): Added automatically from request for surgery [id number] Anxiety disorder 08/24/2019 Sacroiliac joint pain 07/26/2019 Sacroiliitis 10/18/2018 Chronic bilateral low back pain with left-sided sciatica 10/18/2018 Other chronic pain 08/04/2018 Other specified anxiety disorders 08/04/2018 Encounters Date Type Department Care Team Description 08/04/2024 9:36 AM IT MANAGER - 08/04/2024 11:59 PM IT MANAGER Hospital Encounter [address] [address] Janna Caruso MD Sacroiliitis (HCC) Discharge Disposition: Discharge to home or self care 08/02/[address] [address] Adenike Khan RN Pre Arrival 07/24/[address] [address] Khushboo Begum RN PA - hydrocodone 05/31/2024 9:12 AM IT MANAGER - 05/31/2024 11:59 PM IT MANAGER Hospital Encounter [address] [address] Janna Caruso MD Sacroiliitis (HCC) (Primary Dx); Other chronic pain; Multiple sclerosis (HCC) Discharge Disposition: Discharge to home or self care from Last 3 Months Surgical History Surgery Date Site/Laterality Comments SECTION 1977 Caesarean Section SECTION 1979 Caesarean Section SECTION 1985 Caesarean Section HYSTERECTOMY 1992 Hysterectomy BELT ABDOMINOPLASTY 2001 Sarah Serrano MA TONSILLECTOMY PRIMARY/SEC ONDARY <AGE 13 Tonsillectomy - [...] on file Legal Sex Female 1:56 AM IT MANAGER Gender Identity Not on file Sexual Orientation Not on file Obstetrics History Para Term AB IAB SAB Ectopic Multiple Livin g Live Births 3 3 3 3 Date Outcome GA Total Labor Labor/2nd/3rd Weight Sex Type Anes PTL Josephine A1 A5 Name Clin Para Para Para Comments C/S x3 Last Filed Vital Signs Vital Sign Reading Time Taken Comments Blood Pressure 176/95 08/04/2024 10:25 AM IT MANAGER Pulse 71 08/04/2024 10:25 AM IT MANAGER Temperature 36.3 C (97.3 F) 08/04/2024 9:44 AM IT MANAGER Respiratory Rate 16 08/04/2024 10:25 AM IT MANAGER Oxygen Saturation 97% 08/04/2024 10:25 AM IT MANAGER Inhaled Oxygen Concentration - - Weight 77.6 kg (171 lb) 05/19/2023 10:19 AM IT MANAGER Height 154.9 cm (5' 1 ) 05/19/2023 10:19 AM IT MANAGER Body Mass Index 32.31 05/19/2023 10:19 AM IT MANAGER Plan of Treatment Health Maintenance Due Date [...] Chronic Pain Care Plan Chronic Care Management No change(07/16 9:44 AM IT MANAGER) Sierra Garcia, RN Note: Problem: Chronic Pain Goals: 1. Minimize further functional decline 2. Maximize quality of life 3. Control pain Strategies: - Activity/exercise program recommendation - Conservative stepwise pain medicine strategy with multi-disciplinary approach - Recommend healthy lifestyle strategies and compensatory methods as needed Reduce the likelihood of falling Lifestyle On track(08/04 9:44 AM IT MANAGER) Kitty Lind Note: Below are four [...] on stairs Contact your local community or central hospital for information on exercise, fall prevention programs, or options for improving home safety. Procedures Procedure Name Priority Date/Time Associated Diagnosis Comments PAIN MGMT IMAGING SI JOINT BILATERAL ARTHROGRPHY Schedule Routine, Read Routine (OP Routine) 08/04/2024 10:36 AM IT MANAGER Sacroiliitis (HCC) THINPREP IMAGING PAP AND HPV MRNA E6/E7 REFLEX HPV 16,18/45 Routine 02/05/2021 10:20 AM CDT Routine gynecological examination SCREENING MAMMOGRAM BILATERAL W LUKE Schedule Routine, Read Routine (OP Routine) 01/06/2018 1:06 PM CDT Encounter for screening mammogram for malignant neoplasm of breast COLONOSCOPY REPORT 04/30/2017 from Last 3 Months or Most Recently Relevant to Health Maintenance Results * Imaging SI Joint Injection Bilateral (25765) (08/04/2024 10:36 AM IT MANAGER) Narrative [facility] - 08/04/2024 11:12 AM IT MANAGER The images from this study are not interpreted by Radiology. Please refer to the physician's procedure / OR operative note. us Janna Caruso MD IMG PAIN MGMT PROCEDU RES Final Result RAD_PACS_MB * ThinPrep(R) Imaging Pap and HPV mRNA E6/E7 Reflex HPV 16,18/45 (02/05/2021 10:20 AM CDT) CLINICAL INFORMATION: [facility] Comment:Information not prov ided LMP [facility] Comment:NONE GIVEN Previous Pap [facility] Comment:NONE GIVEN Prev. Bx [facility] Comment:NONE GIVEN SOURCE: [facility] Comment:None given Pap, specimen adequacy [facility] Comment: Satisfactory for evaluation. Endocervical/transformation zone component present. HPV interp [facility] Comment:Negative for intraep ithelial lesion or malignancy. Infection: [facility] Comment: Fungal organisms morphologically consistent with Anh spp. COMMENTS [facility] Comment: This Pap test has been evaluated with computer assisted technology. Membership Sales Representative [facility] Comment: TMK, CT(ASCP) CT screening location: [place] [address] [place] [address] [address] [facility] Comment: BES, CT(ASCP) CT screening location: [place] [address] [address] [place] [facility] Comment [facility] Comment: EXPLANATORY NOTE: The Pap is [...] High Risk E6/E7 Not Detected Not Detected [facility] [employer] Comment: Methodology: Enrichment Specialist-Mediated Amplification This assay detects E6/E7 viral messenger RNA (mRNA) from 14 high-risk HPV types (16,18,31,33,35,39,45,51,52,56,58,59,66,68). The analytical performance characteristics of this assay have been determined by [employer]. The modifications have not been cleared or approved by the FDA. This assay has been validated pursuant to the CLIA regulations and is used for clinical purposes. For additional information, please refer to http://education.[employer]/faq/IZB157b8 (This link if provided for information/ educational purposes only.) Swab 02/05/2021 10:2 0 AM CDT 02/06/2021 1:57 AM CDT Ronda Macario JEWEL SORTER LAB CYTOLOGY ORDERABLES Final Result [facility] [address] [place] [address] [facility] [address] [place] [address] * Screening Mammogram Bilateral W Luke (01/06/2018 [...] Most Recently Relevant to Health Maintenance Insurance [employer] MEDIC[employer] [facility] Address: [address] [address] [place] [address] IDPA [facility] AETNA SIGNATURE [facility] CHOICE PLUS [facility] HMO/PPO Address: [address] [address] [place] [address] IDPA MEDICARE SOLUTIONS [facility] MEDIC[facility] Address: [address] [address] [place] [address] [facility] 9 Care Teams Paper Gluing Operator Relationship Specialty Start Date End Date Maria T Escobar MD [address] [place] [address] PCP - General Family Medicine 06/23/22 [place] [address] [place] [address] Pipeline Dispatch Operator Obstetrics and Gynecology 11/12/20 Janna Caruso MD [address] [place] [address] Consulting Physician Pain Management 10/18/18
--- OUTSIDE RECORDS SUMMARY | 2024-08-07 15:48 | XMS_ITS | Encounter Summary ---
Author Organization [facility] Address [address] [place] [address] Care Team Providers Care Philanthropy Officer Name Role Phone Paul Sargent MD Primary Care Provider [phone] Solange Raza MD Primary Care Provider [phone]- [phone] Unknown, Notinfile Primary Care Provider Unavail able Kaley Median MD Unavailable [phone] No, Physician Primary Care Provider [phone] Kaley Medina MD Unavailable [phone] Janna Caruso MD Unavailable [phone] Maria T Escobar MD Primary Care Provider [phone] Encounter Details Date Type Department Care Team (Late st Contact Info) Description 07/06/2018 Telephone [facility] at [place] [id number] [facility] [address] [place] [address] Khushboo Lunsford RN Social History Tobacco Use Types Packs/Day Years Used Date Smoking Tobacco: Former Cigarettes Q uit: 12/02/2005 Smokeless Tobacco: Never Alcohol Use Standard Drinks/Week Comments No 0 (1 standard drink = 0.6 oz pur e alcohol) Comments No Sex and Gender Information Value Date Recorded Sex Assigned at Not on file Legal Sex Female 1:56 AM METAL CANS SUPERVISOR Gender Identity Not on file Sexual Orientation Not on file documented as of this encounter Plan of Treatment Not on file documented as of this encounter Goals Goal Patient Goal Type Associated Problems Recent Progress Patient-Stated? Author CCM Chronic Pain Care Plan Chronic Care Management No change(07/16 9:44 AM METAL CANS SUPERVISOR) No Sierra Isabel, RN Note: Problem: Chronic Pain Goals: 1. Minimize further functional decline 2. Maximize quality of life 3. Control pain Strategies: - Activity/exercise program recommendation - Conservative stepwise pain medicine strategy with multi-disciplinary approach - Recommend healthy lifestyle strategies and compensatory methods as needed Reduce the likelihood of falling Lifestyle On track(08/04 9:44 AM METAL CANS SUPERVISOR) Kitty Lind Note: Below are four [...] stairs Contact your local community or [facility] for information on exercise, fall prevention programs, or options for improving home safety. 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/2012 08/30/201201/29 5:00 AM CDT documented as of this encounter Care Teams Philanthropy Officer Relationship Specialty Start Date End Date Paul Sargent MD [address] [place], [place] [id number] PCP - General 09/04/16 02/21/19 Solange Raza MD [address] [address] PCP - General 02/22/19 10/21/20 Unknown, Notinfile PCP - General 10/22/20 11/11/20 No, Physician PCP - General 11/12/20 06/22/22 Maria T Escobar MD [address] [place] [address] PCP - General Family Medicine 06/23/22 Kaley Medina MD [address] [place] [address] Bread Molder Obstetrics and Gynecology 11/12/20 Kaley Medina MD [address] [place] [address] Bread Molder Obstetrics and Gynecology 11/12/20 11/12/20 Janna Caruso MD [address] [place] [address] Consulting Physician Pain Management 10/18/18 documented as of this encounter
--- OUTSIDE RECORDS SUMMARY | 2024-08-07 15:48 | XMS_ITS | Continuity of Care Document ---
Author Organization [facility] Address [address] [place] [address] Phone Care Team Providers Care Sighter Name Role Phone Antolin Salmeron MD Unavailable Unavailable Advance Directives Directive Yes / No Effective Date File Name No Information Encounters Encounter Description Practice Location Reason(s) For Visit Diagnoses Date Provider Providers [facility]ied on [facility] [address] [place], [place], [id number], [place] tel:[phone] [facility] No Information Jaron Dangelo. [address] [place] [address], [place], [id number], [place]. tel:[phone] Referring Provider: Nick Weir DO, [facility] [address], [place], [address]. tel:[phone] Family History Family Member Type Diagnosis Age At Onset No Information Payers Payer name Insurance type Covered green party ID Authoriza tion(s) [facility] CI [id number] Social History Type Description Quantity Date [...]
--- OUTSIDE RECORDS SUMMARY | 2024-08-07 15:48 | XMS_ITS | Referral Summary ---
Author Organization [facility] Address [address] [facility] [place] [address] Care Team Providers Care Solar Electric Installer Name Role Phone Kaley Medina MD Unavailable Janna Caruso MD Unavailable Maria T Escobar MD Primary Care Provider [phone] Encounters Date Type Department Care Team Description 08/04/2024 9:36 AM SENIOR CORPORATE RECRUITER - 08/04/2024 11:59 PM SENIOR CORPORATE RECRUITER Hospital Encounter [facility] [address] [address] Janna Caruso MD Sacroiliitis (HCC) Discharge Disposition: Discharge to home or self care 08/02/2024 Telephone [facility] [address] [address] Adenike Khan, WANG Pre Arrival 07/24/2024 Telephone [facility] [address] [address] Khushboo Begum RN PA - hydrocodone 05/31/2024 9:12 AM SENIOR CORPORATE RECRUITER - 05/31/2024 11:59 PM SENIOR CORPORATE RECRUITER Hospital Encounter [facility] [address] [address] Janna Caruso MD Sacroiliitis (HCC) [...] (06/25/2022): Added automatically from request for surgery [id number] Anxiety disorder 08/24/2019 Sacroiliac joint pain 07/26/2019 [...] on file Legal Sex Female 1:56 AM SENIOR CORPORATE RECRUITER Gender Identity Not on file Sexual Orientation Not on file Last Filed Vital Signs Vital Sign Reading Time Taken Comments Blood Pressure 176/95 08/04/2024 10:25 AM SENIOR CORPORATE RECRUITER Pulse 71 08/04/2024 10:25 AM SENIOR CORPORATE RECRUITER Temperature 36.3 C (97.3 F) 08/04/2024 9:44 AM SENIOR CORPORATE RECRUITER Respiratory Rate 16 08/04/2024 10:25 AM SENIOR CORPORATE RECRUITER Oxygen Saturation 97% 08/04/2024 10:25 AM SENIOR CORPORATE RECRUITER Inhaled Oxygen Concentration - - Weight 77.6 kg (171 lb) 05/19/2023 10:19 AM SENIOR CORPORATE RECRUITER Height 154.9 cm (5' 1 ) 05/19/2023 10:19 AM SENIOR CORPORATE RECRUITER Body Mass Index 32.31 05/19/2023 10:19 AM SENIOR CORPORATE RECRUITER Plan of Treatment Not on file Goals Goal Patient Goal Type Associated Problems Recent Progress Patient-Stated? Author CCM Chronic Pain Care Plan Chronic Care Management No change(07/16 9:44 AM SENIOR CORPORATE RECRUITER) No Sierra Isabel, RN Note: Problem: Chronic Pain Goals: 1. Minimize further functional decline 2. Maximize quality of life 3. Control pain Strategies: - Activity/exercise program recommendation - Conservative stepwise pain medicine strategy with multi-disciplinary approach - Recommend healthy lifestyle strategies and compensatory methods as needed Reduce the likelihood of falling Lifestyle On track(08/04 9:44 AM SENIOR CORPORATE RECRUITER) No Kitty Morse Note: Below are four [...] Read Routine (OP Routine) 08/04/2024 10:36 AM SENIOR CORPORATE RECRUITER Sacroiliitis (HCC) THINPREP IMAGING PAP AND HPV [...] Results * Imaging SI Joint Injection Bilateral (83050) (08/04/2024 10:36 AM SENIOR CORPORATE RECRUITER) Narrative [facility] - 08/04/2024 11:12 AM SENIOR CORPORATE RECRUITER The images from this study are not interpreted by Radiology. Please refer to the physician's procedure / OR operative note. us Janna Caruso MD IMG PAIN MGMT PROCEDU RES Final Result [facility] * ThinPrep(R) Imaging Pap and HPV mRNA E6/E7 Reflex HPV 16,18/45 (02/05/2021 10:20 AM CDT) CLINICAL INFORMATION: [facility] Comment:Information not prov ided LMP [facility] Comment:NONE GIVEN Previous Pap [facility] Comment:NONE GIVEN Prev. Bx [facility] Comment:NONE GIVEN SOURCE: [facility] Comment:None given Pap, specimen adequacy [facility] Comment: Satisfactory for evaluation. Endocervical/transformation zone component present. HPV interp [facility] Comment:Negative for intraep ithelial lesion or malignancy. Infection: [facility] Comment: Fungal organisms morphologically consistent with Anh spp. COMMENTS [facility] Comment: This Pap test has been evaluated with computer assisted technology. Computer Systems Administrator [facility] Comment: TMK, CT(ASCP) CT screening location: [place] [address] [address] [place] [address] Review fish butcher [facility] Comment: BES, CT(ASCP) CT screening location: [place] [address] [address] [place] [address] Comment [facility] Comment: EXPLANATORY NOTE: The Pap is a [...] High Risk E6/E7 Not Detected Not Detected [facility] Comment: Methodology: Auto Leasing Manager-Mediated Amplification This assay detects E6/E7 viral messenger RNA (mRNA) from 14 high-risk HPV types (16,18,31,33,35,39,45,51,52,56,58,59,66,68). The analytical performance characteristics of this assay have been determined by [employer]. The modifications have not been cleared or approved by the FDA. This assay has been validated pursuant to the CLIA regulations and is used for clinical purposes. For additional information, please refer to http://education.[employer]/faq/EAQ822o8 (This link if provided for information/ educational purposes only.) Swab 02/05/2021 10:2 0 AM CDT 02/06/2021 1:57 AM CDT us Ronda Macario SECURITY ATTENDANT LAB CYTOLOGY ORDERABLES Final Result [place] [address] [address] [place] [address] [facility] [address] [place] [address] * Screening Mammogram Bilateral W Luke (01/06/2018 [...] Most Recently Relevant to Health Maintenance Insurance [employer] MEDICARE [facility] Address: [address] [address] [place] [address] [place] [address] [facility] AETNA SIGNATURE [facility] CHOICE PLUS [facility] H[facility]/PPO Address: [address] [address] [place] [address] IDPA MEDICARE [facility] MEDIC[facility] Address: [address] [address] [place] [address] [place] [address] Care Teams Solar Electric Installer Relationship Specialty Start Date End Date Maria T Escobar MD [address] [place] [address] PCP - General Family Medicine 06/23/22 [place] [address] [place] [address] Strip Machine Tender Obstetrics and Gynecology 11/12/20 Janna Caruso MD [address] [place] [address] Consulting Physician Pain Management 10/18/18
--- OUTSIDE RECORDS SUMMARY | 2024-08-07 15:48 | XMS_ITS | Encounter Summary ---
Author Organization [facility] Healthcare Address [address] [place] [address] Care Team Providers Care Bunch Breaker Name Role Phone Paul Sargent MD Primary Care Provider +- [phone] Solange Raza MD Primary Care Provider +- [phone] Unknown, Notinfile Primary Care Provider Unavail able Kaley Medina MD Unavailable [phone] No, Physician Primary Care Provider [phone] Kaley Medina MD Unavailable [phone] Janna Caruso MD Unavailable Maria T Escobar MD Primary Care Provider [phone] Encounter Details Date Type Department Care Team (Late st Contact Info) Description 01/17/2018 Hospital Encounter [facility] [address] [place] [address] Social History Tobacco Use Types Packs/Day Years [...] on file Legal Sex Female 1:56 AM PROFESSIONAL NURSE Gender Identity Not on file Sexual Orientation Not on file COVID-19 Exposure Response Date Recorded In the last month, have you been in contact with someone who was confirmed or suspected to have Coronavirus / COVID-19? No / Unsure 09/05/2019 11:13 AM CDT documented as of this encounter Functional Status documented as of this encounter Plan of Treatment Not on file documented as of this encounter Goals Goal Patient Goal Type Associated Problems Recent Progress Patient-Stated? Author CCM Chronic Pain Care Plan Chronic Care Management No change(07/16 9:44 AM PROFESSIONAL NURSE) No Sierra Isabel, RN Note: Problem: Chronic Pain Goals: 1. Minimize further functional decline 2. Maximize quality of life 3. Control pain Strategies: - Activity/exercise program recommendation - Conservative stepwise pain medicine strategy with multi-disciplinary approach - Recommend healthy lifestyle strategies and compensatory methods as needed Reduce the likelihood of falling Lifestyle On track(08/04 9:44 AM PROFESSIONAL NURSE) Kitty Lind Note: Below are four things [...] stairs Contact your local community or [facility] for information on exercise, fall prevention programs, or options for improving home safety. 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/2012 08/30/201201/29 5:00 AM CDT documented as of this encounter Care Teams Bunch Breaker Relationship Specialty Start Date End Date Paul Sargent MD [place] [place] [address] PCP - General 09/04/16 02/21/19 Solange Raza MD [address] [place] [address] PCP - General 02/22/19 10/21/20 Unknown, Notinfile PCP - General 10/22/20 11/11/20 No, Physician PCP - General 11/12/20 06/22/22 Maria T Escobar MD [address] [place] [address] PCP - General Family Medicine 06/23/22 Kaley Medina MD [address] [place] [address] Substation Operator Transforming Obstetrics and Gynecology 11/12/20 Kaley Medina MD [address] [place] [address] Substation Operator Transforming Obstetrics and Gynecology 11/12/20 11/12/20 Janna Caruso MD [address] [place] [address] Consulting Physician Pain Management 10/18/18 documented as of this encounter
--- OUTSIDE RECORDS SUMMARY | 2024-08-07 15:48 | XMS_ITS | Continuity of Care Document ---
Author Organization [facility] Address [address] [place] [address] Phone Care Team Providers Care Communications Consultant Name Role Phone Anna Bueno Unavailable Unavailable Advance Directives Directive Yes / No Effective Date File Name No Information Encounters Encounter Description Practice Location Reason(s) For Visit Diagnoses Date Provider Providers Copied on Encounter Formerly [facility], [address] [place] [address] [address], [place], [place], [address], [place] tel:[phone] [facility] No Information 0 2-200 0 Ximena Castillo. [address] , [address], [place], [address], [place]. tel:[phone] Family History Family Member Type Diagnosis Age At Onset No Information Payers Payer name Insurance type Covered alliance party ID Authoriza tion(s) General [place] Commercial CI [id number] Social History Type Description Quantity Date Captured [...]
--- OUTSIDE RECORDS SUMMARY | 2024-08-07 15:48 | XMS_ITS | Encounter Summary ---
Author Organization [facility] Healthcare Address [address] [place] [address] Care Team Providers Care Continuous Pickling Line Pickler Helper Name Role Phone Paul Sargent MD Primary Care Provider +- [phone] Solange Raza MD Primary Care Provider + [phone] Unknown, Notinfile Primary Care Provider Unavail able Kaley Medina MD Unavailable [phone] No, Physician Primary Care Provider [phone] Kaley Medina MD Unavailable [phone] Janna Caruso MD Unavailable Maria T Escobar MD Primary Care Provider [phone] Reason for Visit * Reason Onset Date Comments Med Refill 02/23/2018 Hydrocodone 5/32 5 #90 Carisoprodol 305MG #90 Please mail to home address Encounter Details Date Type Department Care Team (Late st Contact Info) Description 02/23/2018 Telephone [facility] at [address] [place] [address] Paul Rolon MD [address] [address] Med Refill (Hydrocodone 5/325 #90 [...] on file Legal Sex Female 1:56 AM BRANCH ASSOCIATE Gender Identity Not on file Sexual Orientation [...] Chronic Care Management No change(07/16 9:44 AM BRANCH ASSOCIATE) No Sierra Isabel, RN Note: Problem: Chronic Pain Goals: 1. Minimize further functional decline 2. Maximize quality of life 3. Control pain Strategies: - Activity/exercise program recommendation - Conservative stepwise pain medicine strategy with multi-disciplinary approach - Recommend healthy lifestyle strategies and compensatory methods as needed Reduce the likelihood of falling Lifestyle On track(08/04 9:44 AM BRANCH ASSOCIATE) No Kitty Morse Note: Below are four [...] tabletIndications:Pain 1.5 po bid prn Reorder 01/19/2018 8 carisoprodol (SOMA) 350 mg tabletIndications:Muscle Spasm 1 po qhs prn Reorder 02/23/2018 documented as of this encounter Additional Health Concerns Infection Onset Date Last Indicated Resolved Time MRSA Comment:Germ watcher auto flagging 08/30/2012 08/30/201201/29 5:00 AM CDT documented as of this encounter Care Teams Continuous Pickling Line Pickler Helper Relationship Specialty Start Date End Date Paul Sargent MD [address] [place] [address] PCP - General 09/04/16 02/21/19 Solange Raza MD [address] [place], [place] [address] PCP - General 02/22/19 10/21/20 Unknown, Notinfile PCP - General 10/22/20 11/11/20 No, Physician PCP - General 11/12/20 06/22/22 Maria T Escobar MD [address] [place] [address] PCP - General Family Medicine 06/23/22 [place] [address] [place] [address] Monitoring Coordinator Obstetrics and Gynecology 11/12/20 [place] [address] [place] [address] Monitoring Coordinator Obstetrics and Gynecology 11/12/20 11/12/20 Janna Caruso MD [address] [place] [address] Consulting Physician Pain Management 10/18/18 documented as of this encounter
--- OUTSIDE RECORDS SUMMARY | 2024-08-07 15:48 | XMS_ITS | Clinical Summary ---
Author Organization [facility] Address [address] [place] [address] Care Team Providers Care Inker Name Role Phone Unavailable Primary Care Provider Unavailabl e Encounters Date Type Department Care Team Description 08/01/2024 External Device Data STL ABSTRACTION Provider, Abstract 07/05/2024 External Device Data STL ABSTRACTION Provider, Abstract 07/04/2024 External Device Data STL ABSTRACTION Provider, Abstract 06/20/2024 External Device Data STL ABSTRACTION Provider, Abstract 06/01/2024 12:45 PM TIRE FABRIC INSPECTOR Ancillary Procedure [facility] [address] [id number] Jorgito Jaramillo MD Ot tear of medial meniscus, current injury, left knee, init from Last 3 Months Social History Tobacco [...] WO CONTRAST LEFT Routine 06/01/2024 1:16 PM TIRE FABRIC INSPECTOR Oth tear of medial meniscus, current injury, left knee, init from Last 3 Months Results * MRI KNEE WO CONTRAST LEFT (06/01/2024 1:16 PM TIRE FABRIC INSPECTOR) Anatomical Region Laterality Modality Lower Extremity Magnetic Resonan ce 06/01/2024 1:17 PM TIRE FABRIC INSPECTOR Impressions 06/01/2024 1:49 PM TIRE FABRIC INSPECTOR IMPRESSION: 1. Nondisplaced horizontal undersurface tear of the body of the left medial meniscus. 2. Mild to moderate tendinopathy of the distal left semimembranosus tendon without evidence of associated tear. 3. Moderate to severe medial and patellofemoral compartment predominant tricompartmental left knee osteoarthritis with small effusion and trace Alfaro's cyst. Narrative 06/01/2024 1:49 PM TIRE FABRIC INSPECTOR EXAM: MRI KNEE WO CONTRAST LEFT DATE: [...] small foci of subchondral edema. There is axkf-xh-zdndmoai partial-thickness chondrosis of the posterior weightbearing medial [...] bone marrow signal is normal. There is gwoj-tv-oughyrcl tendinopathy of the distal semimembranosus tendon without [...] small foci of subchondral edema. There is szxl-dk-rcsmjxbe partial-thickness chondrosis of the posterior weightbearing medial [...] bone marrow signal is normal. There is akzg-ne-gdnvaryu tendinopathy of the distal semimembranosus tendon without [...] Jorgito Jaramillo MD MR ORDERABLES Final Result from Last 3 Months Insurance [facility] [id number]
--- OUTSIDE RECORDS SUMMARY | 2024-08-07 15:48 | XMS_ITS | Encounter Summary ---
Author Organization [facility] Healthcare Address [address] [place] [address] Care Team Providers Care Emt/Dispatcher Name Role Phone Kaley Medina MD Unavailable [phone] Janna Caruso MD Unavailable Maria T Escobar MD Primary Care Provider [phone] Reason for Visit * Reason Onset Date Comments PA - hydrocodone 07/24/2024 Encounter Details Date Type Department Care Team (Late st Contact Info) Description 07/24/2024 Telephone [facility] [address] [facility] [address] [place] [address] Khushboo Begum RN PA - hydrocodone Social History Tobacco Use Types Packs/Day Years [...] on file Legal Sex Female 1:56 AM RN WELLNESS Gender Identity Not on file Sexual Orientation Not on file documented as of this encounter Miscellaneous Notes * Telephone Encounter - Khushboo Begum RN - 07/24/2024 9:00 AM CST [place]: [id number] Hydrocodone/apap 5/325mg needs PA. WELLNESS documented in this encounter Plan of Treatment Not on file documented as of this encounter Goals Goal Patient Goal Type Associated Problems Recent Progress Patient-Stated? Author CCM Chronic Pain Care Plan Chronic Care Management No change(07/16 9:44 AM RN WELLNESS) No Sierra Isabel RN Note: Problem: Chronic Pain Goals: 1. Minimize further functional decline 2. Maximize quality of life 3. Control pain Strategies: - Activity/exercise program recommendation - Conservative stepwise pain medicine strategy with multi-disciplinary approach - Recommend healthy lifestyle strategies and compensatory methods as needed Reduce the likelihood of falling Lifestyle On track(08/04 9:44 AM RN WELLNESS) No Kitty Morse Note: Below are four [...] on filedocumented in this encounter Care Teams Emt/Dispatcher Relationship Specialty Start Date End Date Maria T Escobar MD [address] [place] [address] PCP - General Family Medicine 06/23/22 [place] [address] [place] [address] Chief Operator Hydroformer Obstetrics and Gynecology 11/12/20 Janna Caruso MD [address] [place] [address] Consulting Physician Pain Management 10/18/18 documented as of this encounter
--- OUTSIDE RECORDS SUMMARY | 2024-08-07 15:49 | XMS_ITS | Encounter Summary ---
Author Organization [facility] Healthcare Address [address] [place] [address] Care Team Providers Care Special Education Professor Name Role Phone Kaley Medina MD Unavailable No, Physician Primary Care Provider Janna Caruso MD Unavailable [phone] Maria T Escobar MD Primary Care Provider [phone] Reason for Visit * Reason Onset Date Comments precall 04/24/2021 Encounter Details Date Type Department Care Team (Late st Contact Info) Description 04/24/2021 Telephone [facility] at [facility] [address] [facility] 1st [place] [address] Karli Sapp, RN precall Social [...] on file Legal Sex Female 1:56 AM WIPING CLOTH CUTTER Gender Identity Not on file Sexual Orientation Not on file documented as of this encounter Plan of Treatment Not on file documented as of this encounter Goals Goal Patient Goal Type Associated Problems Recent Progress Patient-Stated? Author CCM Chronic Pain Care Plan Chronic Care Management No change(07/16 9:44 AM WIPING CLOTH CUTTER) No Sierra Isabel, RN Note: Problem: Chronic Pain Goals: 1. Minimize further functional decline 2. Maximize quality of life 3. Control pain Strategies: - Activity/exercise program recommendation - Conservative stepwise pain medicine strategy with multi-disciplinary approach - Recommend healthy lifestyle strategies and compensatory methods as needed Reduce the likelihood of falling Lifestyle On track(08/04 9:44 AM WIPING CLOTH CUTTER) Kitty Lind Note: Below are four things [...] on stairs Contact your local community or [facility] for information on exercise, fall prevention programs, or options for improving home safety. documented as of this encounter Visit Diagnoses Not on filedocumented in this encounter Care Teams Special Education Professor Relationship Specialty Start Date End Date No, Physician PCP - General 11/12/20 06/22/22 Maria T Escobar MD [address] [place] [address] PCP - General Family Medicine 06/23/22 [place] [address] [place] [address] Steel Die Press Set Up Operator Obstetrics and Gynecology 11/12/20 Janna Caruso MD [address] [place] [address] Consulting Physician Pain Management 10/18/18 documented as of this encounter
[2024-08-07 18:15] VITALS: BP 211/96; PULSE 62; RESP 18; O2SAT 99
[2024-08-07 18:30] VITALS: BP 181/111; PULSE 58; RESP 18; O2SAT 98
[2024-08-07 19:16] VITALS: BP 182/88; PULSE 58; RESP 18; O2SAT 100
[2024-08-07 19:28] LABS: Alanine Aminotransferase 26 U/L (6-35); Albumin Level 4.5 g/dL (3.5-5.1); Alkaline Phosphatase 96 U/L (38-126); Anion Gap 11 mmol/L (4-12); Aspartate Amino Transferase 27 U/L (14-36); Bilirubin,Total 0.6 mg/dL (0.2-1.3); Blood Urea Nitrogen 18 mg/dL (7-17); Calcium 9.7 mg/dL (8.4-10.2); Carbon Dioxide 28 mmol/L (22-30); Chloride 101 mmol/L (98-107); Estimated CRCL calculation 86 ml/min; Estimated Glomerular Filt Rate > 60; Glucose 97 mg/dL (65-110); Potassium 4.2 mmol/L (3.4-5.0); Sodium 140 mmol/L (137-145)
[2024-08-07 19:33] VITALS: PULSE 80
[2024-08-07] MEDS: METOPROLOL TARTRATE 50 MG TAB PO (19:33)
[2024-08-07 19:39] LABS: Troponin I < 0.012 ng/mL (0.000-0.034)
[2024-08-07 20:09] LABS: Add Urine Microscopic? NO; Appearance Urine Clear (Clear); Bilirubin Urine Negative (Negative); Blood Urine Negative (Negative); Color Urine Yellow (Yellow); Glucose Urine UA Negative (Negative); Ketones Urine Negative (Negative); Leukocyte Esterase Ur Negative LEU/UL (Negative); Nitrate Urine Negative (Negative); Protein Urine Negative (Negative); Specific Grav Ur 1.009 (1.001-1.035); Urobilinogen Urine 0.2 mg/dL (<2.0)
--- OUTSIDE RECORDS SUMMARY | 2024-08-07 20:11 | XMS_ITS | Encounter Summary ---
Author Organization [facility] Healthcare Address [address] [place] [address] Care Team Providers Care Armed Security Guard Name Role Phone Paul Sargent MD Primary Care Provider [phone]- [phone] Solange Raza MD Primary Care Provider [phone]- [phone] Unknown, Notinfile Primary Care Provider Unavail able Kaley Medina MD Unavailable [phone] No, Physician Primary Care Provider [phone] Kaley Medina MD Unavailable [phone] Janna Caruso MD Unavailable [phone] Maria T Escobar MD Primary Care Provider [phone] Encounter Details Date Type Department Care Team (Late st Contact Info) Description 07/06/2018 Telephone [facility] at [place] [address] [facility] [address] [place] [address] Khushboo Lunsford RN Social History Tobacco Use Types Packs/Day Years Used Date Smoking Tobacco: Former Cigarettes Q uit: 12/02/2005 Smokeless Tobacco: Never Alcohol Use Standard Drinks/Week Comments No 0 (1 standard drink = 0.6 oz pur e alcohol) Comments No Sex and Gender Information Value Date Recorded Sex Assigned at Not on file Legal Sex Female 1:56 AM REGULATORY AFFAIRS SPECIALIST Gender Identity Not on file Sexual Orientation Not on file documented as of this encounter Plan of Treatment Not on file documented as of this encounter Goals Goal Patient Goal Type Associated Problems Recent Progress Patient-Stated? Author CCM Chronic Pain Care Plan Chronic Care Management No change(07/16 9:44 AM REGULATORY AFFAIRS SPECIALIST) No Sierra Isabel, RN Note: Problem: Chronic Pain Goals: 1. Minimize further functional decline 2. Maximize quality of life 3. Control pain Strategies: - Activity/exercise program recommendation - Conservative stepwise pain medicine strategy with multi-disciplinary approach - Recommend healthy lifestyle strategies and compensatory methods as needed Reduce the likelihood of falling Lifestyle On track(08/04 9:44 AM REGULATORY AFFAIRS SPECIALIST) Kitty Lind Note: Below are four [...] on stairs Contact your local community or [facility] for information on exercise, fall prevention programs, or options for improving home safety. 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/2012 08/30/201201/29 5:00 AM CDT documented as of this encounter Care Teams Armed Security Guard Relationship Specialty Start Date End Date Paul Sargent MD [address] [place], [place] [id number] PCP - General 09/04/16 02/21/19 Solange Raza MD [address] [place] [address] PCP - General 02/22/19 10/21/20 Unknown, Notinfile PCP - General 10/22/20 11/11/20 No, Physician PCP - General 11/12/20 06/22/22 Maria T Escobar MD [address] [place] [address] PCP - General Family Medicine 06/23/22 Kaley Medina MD [address] [place] [address] Steno Typist Obstetrics and Gynecology 11/12/20 Kaley Medina MD [address] [place] [address] Steno Typist Obstetrics and Gynecology 11/12/20 11/12/20 Janna Caruso MD [address] [place] [address] Consulting Physician Pain Management 10/18/18 documented as of this encounter
--- OUTSIDE RECORDS SUMMARY | 2024-08-07 20:11 | XMS_ITS | Continuity of Care Document ---
Author Organization [facility] Address [address] [place] [address] Phone Care Team Providers Care Bolt Labeler Name Role Phone Antolin Salmeron MD Unavailable Unavailable Advance Directives Directive Yes / No Effective Date File Name No Information Encounters Encounter Description Practice Location Reason(s) For Visit Diagnoses Date Provider Providers [facility] [address] [place], [place], [address], [place] tel:[phone] [facility] No Information Jaron Dangelo. [address] [place], [place], [address], [place]. tel:[phone] Referring Provider: Nick Weir DO, [facility] [facility] [address], [place], [address]. tel:[phone] Family History Family Member Type Diagnosis Age At Onset No Information Payers Payer name Insurance type Covered republican ID Authoriza tion(s) [facility] CI [id number] Social History Type Description Quantity Date [...]
--- OUTSIDE RECORDS SUMMARY | 2024-08-07 20:11 | XMS_ITS | Clinical Summary ---
Author Organization [facility] Address [address] [place] [address] Care Team Providers Care Pharmacy District Manager Name Role Phone Unavailable Primary Care Provider Unavailabl e Encounters Date Type Department Care Team Description 08/01/2024 External Device Data STL ABSTRACTION Provider, Abstract 07/05/2024 External Device Data STL ABSTRACTION Provider, Abstract 07/04/2024 External Device Data STL ABSTRACTION Provider, Abstract 06/20/2024 External Device Data STL ABSTRACTION Provider, Abstract 06/01/2024 12:45 PM STATION ENGINEER Ancillary Procedure [facility] [address] [id number] Jorgito Jaramillo MD Ot tear of medial [...] WO CONTRAST LEFT Routine 06/01/2024 1:16 PM STATION ENGINEER Oth tear of medial meniscus, current injury, left knee, init from Last 3 Months Results * MRI KNEE WO CONTRAST LEFT (06/01/2024 1:16 PM STATION ENGINEER) Anatomical Region Laterality Modality Lower Extremity Magnetic Resonan ce 06/01/2024 1:17 PM STATION ENGINEER Impressions 06/01/2024 1:49 PM STATION ENGINEER IMPRESSION: 1. Nondisplaced horizontal undersurface tear of the body of the left medial meniscus. 2. Mild to moderate tendinopathy of the distal left semimembranosus tendon without evidence of associated tear. 3. Moderate to severe medial and patellofemoral compartment predominant tricompartmental left knee osteoarthritis with small effusion and trace Alfaro's cyst. Narrative 06/01/2024 1:49 PM STATION ENGINEER EXAM: MRI KNEE WO CONTRAST LEFT DATE: [...] small foci of subchondral edema. There is sqiw-xg-etbnxzqy partial-thickness chondrosis of the posterior weightbearing medial [...] bone marrow signal is normal. There is jawc-yb-najuxhph tendinopathy of the distal semimembranosus tendon without [...] small foci of subchondral edema. There is vsua-jh-qnddnujj partial-thickness chondrosis of the posterior weightbearing medial [...] bone marrow signal is normal. There is qhvx-bk-vyvxjcvi tendinopathy of the distal semimembranosus tendon without [...] Final Result from Last 3 Months Insurance [facility] [id number]
--- OUTSIDE RECORDS SUMMARY | 2024-08-07 20:11 | XMS_ITS | Continuity of Care Document ---
Author Organization [facility] Address [address] [place] [address] Phone Care Team Providers Care Handicrafts Teacher Name Role Phone Anna Bueno Unavailable Unavailable Advance Directives Directive Yes / No Effective Date File Name No Information Encounters Encounter Description Practice Location Reason(s) For Visit Diagnoses Date Provider Providers Copied on Encounter Formerly [facility], [id number] [place] [address] [address], [place], [place], [address], [place] tel:[phone] [facility] No Information 0 2-200 0 Ximena Castillo. [address], [place], [address], [place]. tel:[phone] Family History Family Member Type Diagnosis Age At Onset No Information Payers Payer name Insurance type Covered democrat ID Authoriza tion(s) General [place] Commercial CI [id number] Social History Type Description Quantity Date Captured [...]
--- OUTSIDE RECORDS SUMMARY | 2024-08-07 20:11 | XMS_ITS | Encounter Summary ---
Author Organization [facility] Healthcare Address [address] [place] [address] Care Team Providers Care Technician Semiconductor Development Name Role Phone Kaley Medina MD Unavailable [phone] Janna Caruso MD Unavailable Maria T Escobar MD Primary Care Provider [phone] Reason for Visit * Reason Onset Date Comments PA - hydrocodone 07/24/2024 Encounter Details Date Type Department Care Team (Late st Contact Info) Description 07/24/2024 Telephone [facility] [address] [facility] [place] [facility] [address] [place] [address] Khushboo Begum RN PA - [...] on file Legal Sex Female 1:56 AM TRANSCRIPT CLERK Gender Identity Not on file Sexual Orientation Not on file documented as of this encounter Miscellaneous Notes * Telephone Encounter - Khushboo Begum RN - 07/24/2024 9:00 AM CST [place]: [id number] Hydrocodone/apap 5/325mg needs PA. SCRIPT CLERK documented in this encounter Plan of Treatment Not on file documented as of this encounter Goals Goal Patient Goal Type Associated Problems Recent Progress Patient-Stated? Author CCM Chronic Pain Care Plan Chronic Care Management No change(07/16 9:44 AM TRANSCRIPT CLERK) No Sierra Isabel RN Note: Problem: Chronic Pain Goals: 1. Minimize further functional decline 2. Maximize quality of life 3. Control pain Strategies: - Activity/exercise program recommendation - Conservative stepwise pain medicine strategy with multi-disciplinary approach - Recommend healthy lifestyle strategies and compensatory methods as needed Reduce the likelihood of falling Lifestyle On track(08/04 9:44 AM TRANSCRIPT CLERK) No Kitty Morse Note: Below are four [...] on filedocumented in this encounter Care Teams Technician Semiconductor Development Relationship Specialty Start Date End Date Maria T Escobar MD [address] [place] [address] PCP - General Family Medicine 06/23/22 [place] [address] [place] [address] Can Operator Obstetrics and Gynecology 11/12/20 Janna Caruso MD [address] [place] [address] Consulting Physician Pain Management 10/18/18 documented as of this encounter
--- OUTSIDE RECORDS SUMMARY | 2024-08-07 20:11 | XMS_ITS | Encounter Summary ---
Author Organization [facility] Healthcare Address [address] [place] [address] Care Team Providers Care Bull Fiddle Player Name Role Phone Paul Sargent MD Primary Care Provider [phone]- [phone] Solange Raza MD Primary Care Provider [phone]- [phone] Unknown, Notinfile Primary Care Provider Unavail able Kaley Medina MD Unavailable [phone] No, Physician Primary Care Provider [phone] Kaley Medina MD Unavailable [phone] Janna Caruso MD Unavailable Maria T Escobar MD Primary Care Provider [phone] Encounter Details Date Type Department Care Team (Late st Contact Info) Description 01/17/2018 Hospital Encounter [facility] [address] [place] [address] Social History Tobacco Use Types Packs/Day Years [...] on file Legal Sex Female 1:56 AM BARREL PLATER Gender Identity Not on file Sexual Orientation [...] Chronic Care Management No change(07/16 9:44 AM BARREL PLATER) No Sierra Isabel, RN Note: Problem: Chronic Pain Goals: 1. Minimize further functional decline 2. Maximize quality of life 3. Control pain Strategies: - Activity/exercise program recommendation - Conservative stepwise pain medicine strategy with multi-disciplinary approach - Recommend healthy lifestyle strategies and compensatory methods as needed Reduce the likelihood of falling Lifestyle On track(08/04 9:44 AM BARREL PLATER) Kitty Lind Note: Below are four things [...] stairs Contact your local community or [facility] for information on exercise, fall prevention programs, or options for improving home safety. 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/2012 08/30/201201/29 5:00 AM CDT documented as of this encounter Care Teams Bull Fiddle Player Relationship Specialty Start Date End Date Paul Sargent MD [place] [address] PCP - General 09/04/16 02/21/19 Solange Raza MD [address] [place] [address] PCP - General 02/22/19 10/21/20 Unknown, Notinfile PCP - General 10/22/20 11/11/20 No, Physician PCP - General 11/12/20 06/22/22 Maria T Escobar MD [address] [place] [address] PCP - General Family Medicine 06/23/22 Kaley Medina MD [address] [place] [address] Risk Control Representative Obstetrics and Gynecology 11/12/20 Kaley Medina MD [address] [place] [address] Risk Control Representative Obstetrics and Gynecology 11/12/20 11/12/20 Janna Caruso MD [address] [place] [place] [address] Consulting Physician Pain Management 10/18/18 documented as of this encounter
--- OUTSIDE RECORDS SUMMARY | 2024-08-07 20:11 | XMS_ITS | Referral Summary ---
Author Organization [facility] Address [address] [facility] [place] [address] Care Team Providers Care Laundry Equipment Operator Name Role Phone Kaley Medina MD Unavailable Janna Caruso MD Unavailable [phone] Maria T Escobar MD Primary Care Provider [phone] Encounters Date Type Department Care Team Description 08/04/2024 9:36 AM CHIEF EXECUTIVE - 08/04/2024 11:59 PM CHIEF EXECUTIVE Hospital Encounter [facility] Pain [address] [address] Janna Caruso MD Sacroiliitis (HCC) Discharge Disposition: Discharge to home or self care 08/02/2024 Telephone [facility] Center [address] [address] Adenike Khan, WANG Pre Arrival 07/24/2024 Telephone [facility] [address] [address] Khushboo Begum RN PA - hydrocodone 05/31/2024 9:12 AM CHIEF EXECUTIVE - 05/31/2024 11:59 PM CHIEF EXECUTIVE Hospital Encounter [facility] Pain [address] [address] Janna Caruso MD Sacroiliitis (HCC) [...] (06/25/2022): Added automatically from request for surgery [id number] Anxiety disorder 08/24/2019 Sacroiliac joint pain 07/26/2019 [...] on file Legal Sex Female 1:56 AM CHIEF EXECUTIVE Gender Identity Not on file Sexual Orientation Not on file Last Filed Vital Signs Vital Sign Reading Time Taken Comments Blood Pressure 176/95 08/04/2024 10:25 AM CHIEF EXECUTIVE Pulse 71 08/04/2024 10:25 AM CHIEF EXECUTIVE Temperature 36.3 C (97.3 F) 08/04/2024 9:44 AM CHIEF EXECUTIVE Respiratory Rate 16 08/04/2024 10:25 AM CHIEF EXECUTIVE Oxygen Saturation 97% 08/04/2024 10:25 AM CHIEF EXECUTIVE Inhaled Oxygen Concentration - - Weight 77.6 kg (171 lb) 05/19/2023 10:19 AM CHIEF EXECUTIVE Height 154.9 cm (5' 1 ) 05/19/2023 10:19 AM CHIEF EXECUTIVE Body Mass Index 32.31 05/19/2023 10:19 AM CHIEF EXECUTIVE Plan of Treatment Not on file Goals Goal Patient Goal Type Associated Problems Recent Progress Patient-Stated? Author CCM Chronic Pain Care Plan Chronic Care Management No change(07/16 9:44 AM CHIEF EXECUTIVE) No Sierra Isabel, RN Note: Problem: Chronic Pain Goals: 1. Minimize further functional decline 2. Maximize quality of life 3. Control pain Strategies: - Activity/exercise program recommendation - Conservative stepwise pain medicine strategy with multi-disciplinary approach - Recommend healthy lifestyle strategies and compensatory methods as needed Reduce the likelihood of falling Lifestyle On track(08/04 9:44 AM CHIEF EXECUTIVE) No Kitty Morse Note: Below are four [...] Read Routine (OP Routine) 08/04/2024 10:36 AM CHIEF EXECUTIVE Sacroiliitis (HCC) THINPREP IMAGING PAP AND HPV [...] Results * Imaging SI Joint Injection Bilateral (42327) (08/04/2024 10:36 AM CHIEF EXECUTIVE) Narrative [facility] - 08/04/2024 11:12 AM CHIEF EXECUTIVE The images from this study are not interpreted by Radiology. Please refer to the physician's procedure / OR operative note. us Janna Caruso MD IMG PAIN MGMT PROCEDU RES Final Result [facility] * ThinPrep(R) Imaging Pap and HPV mRNA E6/E7 Reflex HPV 16,18/45 (02/05/2021 10:20 AM CDT) CLINICAL INFORMATION: [facility] Comment:Information not prov ided LMP [facility] Comment:NONE GIVEN Previous Pap [facility] Comment:NONE GIVEN Prev. Bx [facility] Comment:NONE GIVEN SOURCE: [facility] Comment:None given Pap, specimen adequacy [facility] Comment: Satisfactory for evaluation. Endocervical/transformation zone component present. HPV interp [facility] Comment:Negative for intraep ithelial lesion or malignancy. Infection: [facility] Comment: Fungal organisms morphologically consistent with Anh spp. COMMENTS [facility] Comment: This Pap test has been evaluated with computer assisted technology. [employer] [facility] Comment: TMK, CT(ASCP) CT screening location: [place] [address] [address] [place] [address] Review treasury associate [facility] Comment: BES, CT(ASCP) CT screening location: [place] [address] [address] [place] [address] Comment [facility] Comment: EXPLANATORY NOTE: The Pap is [...] High Risk E6/E7 Not Detected Not Detected [facility] [employer] [facility] Comment: Methodology: Solution Engineer-Mediated Amplification This assay detects E6/E7 viral messenger RNA (mRNA) from 14 high-risk HPV types (16,18,31,33,35,39,45,51,52,56,58,59,66,68). The analytical performance characteristics of this assay have been determined by [facility]. The modifications have not been cleared or approved by the FDA. This assay has been validated pursuant to the CLIA regulations and is used for clinical purposes. For additional information, please refer to http://education.[employer]am[employer].[facility]/faq/ACW558g2 (This link if provided for information/ educational purposes only.) Swab 02/05/2021 10:2 0 AM CDT 02/06/2021 1:57 AM CDT us Ronda Macario DIPLOMA DENTAL ASSISTANT LAB CYTOLOGY ORDERABLES Final Result [place] [address] [address] [place] [address] [facility] [employer] [address] [place] [address] * Screening Mammogram Bilateral W Luke (01/06/2018 [...] Most Recently Relevant to Health Maintenance Insurance [employer] [place] [address] [facility] AETNA SIGNATURE [facility] CHOICE PLUS IDPA MEDICARE SOLUTIONS [place] [id number] Care Teams Laundry Equipment Operator Relationship Specialty Start Date End Date Maria T Escobar MD [address] [place] [address] PCP - General Family Medicine 06/23/22 [place] [address] [place] [address] Burglar Alarm Assembler Obstetrics and Gynecology 11/12/20 Janna Caruso MD [address] [place] [place] [address] Consulting Physician Pain Management 10/18/18
--- OUTSIDE RECORDS SUMMARY | 2024-08-07 20:11 | XMS_ITS | Clinical Summary ---
Author Organization [facility] Address [address] [facility] [facility] [place] [address] Care Team Providers Care Hog Scraper Name Role Phone Kaley Medina MD Unavailable Janna Caruso MD Unavailable Maria T Escobar MD Primary Care Provider [phone] Allergies Active Allergy Reactions Criticality Noted Date [...] (06/25/2022): Added automatically from request for surgery [id number] Anxiety disorder 08/24/2019 Sacroiliac joint pain 07/26/2019 Sacroiliitis 10/18/2018 Chronic bilateral low back pain with left-sided sciatica 10/18/2018 Other chronic pain 08/04/2018 Other specified anxiety disorders 08/04/2018 Encounters Date Type Department Care Team Description 08/04/2024 9:36 AM CRYSTALIZER - 08/04/2024 11:59 PM CRYSTALIZER Hospital Encounter [address] [address] Janna Caruso MD Sacroiliitis (HCC) Discharge Disposition: Discharge to home or self care 08/02/[address] [address] Adenike Khan RN Pre Arrival 07/24/[address] [address] Khushboo Begum RN PA - hydrocodone 05/31/2024 9:12 AM CRYSTALIZER - 05/31/2024 11:59 PM CRYSTALIZER Hospital Encounter [address] [address] Janna Caruso MD Sacroiliitis (HCC) (Primary Dx); Other chronic pain; Multiple sclerosis (HCC) Discharge Disposition: Discharge to home or self care from Last 3 Months Surgical History Surgery Date Site/Laterality Comments SECTION 1977 Caesarean Section SECTION 1979 Caesarean Section SECTION 1985 Caesarean Section HYSTERECTOMY 1992 Hysterectomy BELT ABDOMINOPLASTY 2001 Sarah Serrano [place] TONSILLECTOMY PRIMARY/SEC ONDARY <AGE 13 Tonsillectomy - [...] on file Legal Sex Female 1:56 AM CRYSTALIZER Gender Identity Not on file Sexual Orientation Not on file Obstetrics History Para Term AB IAB SAB Ectopic Multiple Livin g Live Births 3 3 3 3 Date Outcome GA Total Labor Labor/2nd/3rd Weight Sex Type Anes PTL Josephnie A1 A5 Name Clin Para Para Para Comments C/S x3 Last Filed Vital Signs Vital Sign Reading Time Taken Comments Blood Pressure 176/95 08/04/2024 10:25 AM CRYSTALIZER Pulse 71 08/04/2024 10:25 AM CRYSTALIZER Temperature 36.3 C (97.3 F) 08/04/2024 9:44 AM CRYSTALIZER Respiratory Rate 16 08/04/2024 10:25 AM CRYSTALIZER Oxygen Saturation 97% 08/04/2024 10:25 AM CRYSTALIZER Inhaled Oxygen Concentration - - Weight 77.6 kg (171 lb) 05/19/2023 10:19 AM CRYSTALIZER Height 154.9 cm (5' 1 ) 05/19/2023 10:19 AM CRYSTALIZER Body Mass Index 32.31 05/19/2023 10:19 AM CRYSTALIZER Plan of Treatment Health Maintenance Due Date [...] Chronic Care Management No change(07/16 9:44 AM CRYSTALIZER) Sierra Garcia, RN Note: Problem: Chronic Pain Goals: 1. Minimize further functional decline 2. Maximize quality of life 3. Control pain Strategies: - Activity/exercise program recommendation - Conservative stepwise pain medicine strategy with multi-disciplinary approach - Recommend healthy lifestyle strategies and compensatory methods as needed Reduce the likelihood of falling Lifestyle On track(08/04 9:44 AM CRYSTALIZER) Kitty Lind Note: Below are four things [...] on stairs Contact your local community or [facility] for information on exercise, fall prevention programs, or options for improving home safety. Procedures Procedure Name Priority Date/Time Associated Diagnosis Comments PAIN MGMT IMAGING SI JOINT BILATERAL ARTHROGRPHY Schedule Routine, Read Routine (OP Routine) 08/04/2024 10:36 AM CRYSTALIZER Sacroiliitis (HCC) THINPREP IMAGING PAP AND HPV [...] Results * Imaging SI Joint Injection Bilateral ([id number]) (08/04/2024 10:36 AM CRYSTALIZER) Narrative [facility] - 08/04/2024 11:12 AM CRYSTALIZER The images from this study are not interpreted by Radiology. Please refer to the physician's procedure / OR operative note. us Janna Caruso MD IMG PAIN MGMT PROCEDU RES Final Result [facility] * ThinPrep(R) Imaging Pap and HPV mRNA E6/E7 Reflex HPV 16,18/45 (02/05/2021 10:20 AM CDT) CLINICAL INFORMATION: [facility] Comment:Information not prov ided LMP [facility] Comment:NONE GIVEN Previous Pap [facility] Comment:NONE GIVEN Prev. Bx [facility] Comment:NONE GIVEN SOURCE: [facility] Comment:None given Pap, specimen adequacy [facility] Comment: Satisfactory for evaluation. Endocervical/transformation zone component present. HPV interp [facility] Comment:Negative for intraep ithelial lesion or malignancy. Infection: [facility] Comment: Fungal organisms morphologically consistent with Anh spp. COMMENTS [facility] Comment: This Pap test has been evaluated with computer assisted technology. Neuro Ophthalmologist [facility] Comment: TMK, CT(ASCP) CT screening location: [place] [address] [place] [address] Review home appraiser [facility] Comment: BES, CT(ASCP) CT screening location: [place] [address] [address] [place] [facility] Comment [facility] Comment: EXPLANATORY NOTE: The Pap is a [...] Not Detected Not Detected [facility] [employer] Comment: Methodology: Associate Professor Of Psychology-Mediated Amplification This assay detects E6/E7 viral messenger RNA (mRNA) from 14 high-risk HPV types (16,18,31,33,35,39,45,51,52,56,58,59,66,68). The analytical performance characteristics of this assay have been determined by [employer]. The modifications have not been cleared or approved by the FDA. This assay has been validated pursuant to the CLIA regulations and is used for clinical purposes. For additional information, please refer to http://education.echoecho/faq/BZM786h4 (This link if provided for information/ educational purposes only.) Swab 02/05/2021 10:2 0 AM CDT 02/06/2021 1:57 AM CDT Ronda Macario SECURITY POLICE LAB CYTOLOGY ORDERABLES Final Result [facility] [address] [place] [address] [facility] [address] [place] [address] * Screening Mammogram Bilateral W Luke (01/06/2018 [...] to Health Maintenance Insurance [employer]IC[employer] [facility] MEDIC[facility] Address: [address] [address] [place] [address] IDPA [facility] AETNA SIGNATURE [facility] CHOICE PLUS [facility] HMO/PPO Address: [address] [address] [place] [address] [employer] MEDICARE SOLUTIONS [facility] MEDICARE Address: [address] [address] [place] [address] [facility] 9 Care Teams Hog Scraper Relationship Specialty Start Date End Date Maria T Escobar MD [address] [place] [place] [address] PCP - General Family Medicine 06/23/22 [place] [address] [place] [address] Executive Associate Obstetrics and Gynecology 11/12/20 Janna Caruso MD [address] [place] [place] [address] Consulting Physician Pain Management 10/18/18
--- OUTSIDE RECORDS SUMMARY | 2024-08-07 20:12 | XMS_ITS | Encounter Summary ---
Author Organization [facility] Healthcare Address [address] [place] [address] Care Team Providers Care Inweaver Name Role Phone Kaley Medina MD Unavailable No, Physician Primary Care Provider Janna Caruso MD Unavailable Maria T Escobar MD Primary Care Provider [phone] Reason for Visit * Reason Onset Date Comments precall 04/24/2021 Encounter Details Date Type Department Care Team (Late st Contact Info) Description 04/24/2021 Telephone [facility] [address] [facility] 1[address] [place] [address] Karli Sapp, RN precall Social [...] on file Legal Sex Female 1:56 AM PUMP AND BLOWER OPERATOR Gender Identity Not on file Sexual Orientation Not on file documented as of this encounter Plan of Treatment Not on file documented as of this encounter Goals Goal Patient Goal Type Associated Problems Recent Progress Patient-Stated? Author CCM Chronic Pain Care Plan Chronic Care Management No change(07/16 9:44 AM PUMP AND BLOWER OPERATOR) No Sierra Isabel, RN Note: Problem: Chronic Pain Goals: 1. Minimize further functional decline 2. Maximize quality of life 3. Control pain Strategies: - Activity/exercise program recommendation - Conservative stepwise pain medicine strategy with multi-disciplinary approach - Recommend healthy lifestyle strategies and compensatory methods as needed Reduce the likelihood of falling Lifestyle On track(08/04 9:44 AM PUMP AND BLOWER OPERATOR) Kitty Lind Note: Below are four [...] on stairs Contact your local community or [facility] for information on exercise, fall prevention programs, or options for improving home safety. documented as of this encounter Visit Diagnoses Not on filedocumented in this encounter Care Teams Inweaver Relationship Specialty Start Date End Date No, Physician PCP - General 11/12/20 06/22/22 Maria T Escobar MD [address] [place] [address] PCP - General Family Medicine 06/23/22 [place] [address] [place] [address] Senior Art Director Obstetrics and Gynecology 11/12/20 Janna Caruso MD [address] [place] [address] Consulting Physician Pain Management 10/18/18 documented as of this encounter
--- OUTSIDE RECORDS SUMMARY | 2024-08-07 20:12 | XMS_ITS | Encounter Summary ---
Author Organization [facility] Healthcare Address [address] [place] [address] Care Team Providers Care Director Nurses' Registry Name Role Phone Paul Sargent MD Primary Care Provider [phone] Solange Raza MD Primary Care Provider + [phone] Unknown, Notinfile Primary Care Provider Unavail able Kaley Medina MD Unavailable [phone] No, Physician Primary Care Provider [phone] Kaley Medina MD Unavailable [phone] Janna Caruso MD Unavailable Maria T Escobar MD Primary Care Provider [phone] Reason for Visit * Reason Onset Date Comments Med Refill 02/23/2018 Hydrocodone 5/32 5 #90 Carisoprodol 305MG #90 Please mail to home address Encounter Details Date Type Department Care Team (Late st Contact Info) Description 02/23/2018 Telephone [facility] Pain Center at [address] [place] [address] Paul Rolon MD [address] [address] Med Refill (Hydrocodone 5/325 #90 [...] file Legal Sex Female 1:56 AM METAL PRECISION MACHINE ASSEMBLER Gender Identity Not on file Sexual Orientation [...] Care Management No change(07/16 9:44 AM METAL PRECISION MACHINE ASSEMBLER) No Sierra Isabel, RN Note: Problem: Chronic Pain Goals: 1. Minimize further functional decline 2. Maximize quality of life 3. Control pain Strategies: - Activity/exercise program recommendation - Conservative stepwise pain medicine strategy with multi-disciplinary approach - Recommend healthy lifestyle strategies and compensatory methods as needed Reduce the likelihood of falling Lifestyle On track(08/04 9:44 AM METAL PRECISION MACHINE ASSEMBLER) No Kitty Morse Note: Below are four [...] documented as of this encounter Care Teams Director Nurses' Registry Relationship Specialty Start Date End Date Paul Sargent MD [address] [place] [address] PCP - General 09/04/16 02/21/19 Solange Raza MD [address] [place], [place] [address] PCP - General 02/22/19 10/21/20 Unknown, Notinfile PCP - General 10/22/20 11/11/20 No, Physician PCP - General 11/12/20 06/22/22 Maria T Escobar MD [address] [place] [address] PCP - General Family Medicine 06/23/22 [place] [address] [place] [address] Drying And Winding Supervisor Obstetrics and Gynecology 11/12/20 [place] [address] [place] [address] Drying And Winding Supervisor Obstetrics and Gynecology 11/12/20 11/12/20 Janna Caruso MD [address] [place] [address] Consulting Physician Pain Management 10/18/18 documented as of this encounter
[2024-08-07 20:29] VITALS: BP 183/88; PULSE 60; RESP 18; O2SAT 96
== END 2024-08-07 22:06 | disposition home or self-care (01) ==
PROVIDERS: Physician Assistant; Emergency Provider Physician Assistant; PCP Family Medicine
DX: I10 Essential (primary) hypertension (principal); Z79.82 Long term (current) use of aspirin; E78.5 Hyperlipidemia, unspecified; Z87.891 Personal history of nicotine dependence
CPT/HCPCS: 36415; 70450; 71045; 80053; 81003; 84484; 85025; 85610; 85730; 93005; 99284; A9270

== ENCOUNTER 2024-08-16 01:22 | Day surgery (SDC) | payer OTHER, MEDICARE, SELFPAY ==
[2024-08-08 13:41] VITALS: BMI 34.8
--- NOTE | 2024-08-08 13:47 | PC.NURSE ---
Report to the Outpatient Waiting Room, entrance under the green pavilion located off [facility], at time _0600_ on date _[id number]_. Planned Procedure Time: _0730_.? Time changes happen often and if your time is changed the preop area will call you the afternoon before. - You and your visitor will be asked to self-screen and do not enter if you have any COVID symptoms. Please call surgeon if you need to reschedule. - A mask is optional within the hospital at this time. Patients may have clear liquids (water, carbonated beverages, clear teas, apple juice) until 3 hours prior to surgery with a maximum of 20 ounces. - No food from midnight until time of surgery and no smoking, or chewing tobacco (or any form of nicotine). No chewing gum, candy or mints. Take only the following medications with a SIP of water on the morning of surgery: ___Metoprolol, Duloxeting and if needed may use Hydroxyzine and or Hydrocodone.____ DO NOT STOP ANY OF YOUR OTHER PRESCRIPTION MEDICATIONS PRIOR TO SURGERY EXCEPT THE FOLLOWING Hold all vitamins and supplements for 3 days per anesthesiologist. Medications to discontinue per physician ___Meloxicam and Aspirin___ Date to take last gqlc___[phone]____ Please no make-up, nail barbadian, hairspray, perfume, deodorant, or body powder the day of surgery.? No jewelry (including any body piercings) or valuables the day of surgery, leave them at home.? Please take a shower or bath the night before, or the morning of, surgery with an antibacterial soap.? Wear comfortable, loose fitting clothing.? - Jewelry must be removed prior to entering the operating room.? Rings and piercings that are not removed may be cut off. - The hospital will not accept responsibility for valuables.? - Please leave all valuables, including medications, at home the day of surgery. If you are going home after surgery, a licensed concrete mixer truck driver must drive you home.? - NO public transportation without another adult if you receive anesthesia. - We recommend that an adult stay with you for 24 hours following discharge. - We also recommend that you do not drive, make important decision, drink alcoholic beverages, or take any drugs that were not prescribed by your health care provider for at least 24 hours after your discharge time. Follow any additional instructions given to you from your surgeon. Telephone instructions given to _Jackie___and asked if any additional questions and then verbalized understanding. Patient advised to call surgeon office or pre surgery nurse liaison [phone] if any additional questions.
--- NOTE | 2024-08-10 09:41 | P.HP_ITS ---
H&P: HPI History of Present Illness Date/Time: 08/10/24 09:41 Chief Complaint: Patient presents knee pain left. She she has mechanical catching and locking of the knee that has not responded to conservative treatment. Her MRI scans shows a meniscal tear. She would like to have this surgically addressed. Review of Systems Musculoskeletal: Musculoskeletal: Reports arthralgias, Reports joint swelling and Reports stiffness Neurologic: Reports abnormal gait [facility] Past Medical History Medical History Inflammatory arthritis Chronic narcotic use Tear of medial meniscus of left knee De Quervain's tenosynovitis, right First dorsal compartment release, 08/03/[address] 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 decompression May 2014 History of carpal tunnel release 1995 History of foot surgery Hammer toe 1993 History of tonsillectomy 1974 History of sacrocolpopexy 07/2016- History of abdominoplasty 2001 H/O: hysterectomy 1991 H/O section 1977,1980,1985 Family History Family History Father Hypertension Family history of lung cancer Diabetes mellitus Grandparent Hypertension Pulmonary embolism Sibling Hypertension Heart disease Mother Hypertension Diabetes mellitus Breast cancer CHF (congestive heart failure) Social History Social History Smoking packs per day: 1 Smoking cigarettes per day: 20.0 Years smoked: 20 Smoking pack-years: 20.00 Smoking status: Former smoker Tobacco type: cigarettes Second hand tobacco smoke exposure: No Smoking end date: 08/08/05 Additional smoking assessment comments: cigarettes 1ppd x30 years Alcohol intake: current Drinks per week: 1 Alcohol use details: occassionally Substance use: never Substance use type: does not use Other substance usage details: PATIENT GETS THIS FROM PAIN MANAGEMENT. Do You Feel Safe in your Home?: Yes Lack of Transportation: No Lack of Food: Never True Current Housing: I Have Housing Concerned About Future Housing: No Difficulty Paying Gas/Electric Bills: No Difficulty Paying for Meds: No Currently Unemployed: No Education: Bachelor's Degree Difficulty w/ Childcare or Family Care: No Living arrangements: with family Additional living arrangements comments: Spouse Occupation/Education: unemployed Gender identity (if verbalized by the patient): Female Spiritual care concerns: No Meds Home Medications and Allergies Home Medications ?Medication ?Instructions ?Recorded ?Confirmed ?Type baclofen 10 mg tablet 10 mg PO TID 06/15/19 08/08/24 History cholecalciferol (vitamin D3) 50 2,000 unit PO DAILY 06/15/19 08/08/24 History mcg (2,000 unit) tablet hydrocodone 5 mg-acetaminophen 325 2 tablet PO TID PRN Pain 06/15/19 08/08/24 History mg tablet ascorbic acid (vitamin C) 500 mg 500 mg PO DAILY 08/01/19 08/08/24 History capsule aspirin 81 mg tablet,delayed 81 mg PO DAILY 08/01/19 08/08/24 History release (Adult Low Dose Aspirin) biotin 10,000 mcg capsule 10,000 mcg PO DAILY 08/01/19 08/08/24 History mecobalamin (vitamin B12) 1,000 1,000 mcg PO DAILY 08/01/19 08/08/24 History mcg chewable tablet vitamin E (dl, acetate) 180 mg 400 unit PO DAILY 08/01/19 08/08/24 History (400 unit) capsule hydroxyzine HCl 25 mg tablet 25 mg PO QID PRN Anxiety 08/03/22 08/08/24 History duloxetine 30 mg capsule,delayed 90 mg PO DAILY 10/14/22 08/08/24 History release (Cymbalta) meloxicam 15 mg tablet 15 mg PO DAILY #90 tabs 05/24/23 08/08/24 Rx lansoprazole 30 mg capsule,delayed See Rx Instructions .Route 11/07/23 08/08/24 Rx release .COMPLEX #100 caps atorvastatin 40 mg tablet See Rx Instructions .Route 03/01/24 08/08/24 Rx .COMPLEX #100 tabs calcium polycarbophil 625 mg 1,250 mg PO DAILY 07/05/24 08/08/24 History tablet (Fiber (calcium polycarbophil)) magnesium 250 mg tablet 250 mg PO DAILY 07/05/24 08/08/24 History metoprolol tartrate 50 mg tablet 100 mg (2 x 50 mg) PO BID 30 days 08/08/24 Rx #120 tabs Allergies Allergy/AdvReac Type Severity Reaction Status Date / Time gabapentin Allergy Severe disorientat Verified 08/08/24 13:38 ion morphine AdvReac Intermediate Nausea and Verified 08/08/24 13:38 Vomiting codeine AdvReac Mild Nausea Verified 08/08/24 13:38 cortisone AdvReac Mild Nausea Verified 08/08/24 13:38 erythromycin base AdvReac Mild Nausea Verified 08/08/24 13:38 Penicillins AdvReac Mild Nausea Verified 08/08/24 13:38 Exam Narrative: On exam she has catching locking and pain of her left knee. She has mechanical symptoms consistent with meniscal pathology. She has a positive Maria A's and pain to palpation over the joint line. Neurologically she is intact. She walks with a bit of a limp. Eyes: General: appearance normal, both eyes and all related structures Neck: Neck: supple Resp: Effort & Inspection: normal respiratory effort Cardio: Rate: regular rate Rhythm: regular rhythm Radiology Reports: Comments: Magnetic Resonance Report Signed Patient: Diane Sykes MRI of the left knee Clinical history: Pain Technique: Coronal proton density and proton density-weighted images, sagittal proton-density and T2 fat-sat images, and axial proton-density fat-saturated images were acquired. Findings: Anterior and posterior cruciate ligament are intact. Medial collateral ligament and the lateral collateral ligament complex are intact. Popliteus tendon is intact. There is probable vertical tear at the posterior root of the medial meniscus, with additional intrasubstance degenerative signal of the medial meniscus. No lateral meniscal tear identified. There is moderate chondral thinning at the medial joint line with mild reactive marrow edema at the medial corner of the medial tibial plateau. Articular cartilage in the lateral compartment and along the femoral trochlea is intact. There is focal moderate chondromalacia of the patellar apex with focal subchondral reactive marrow edema. Extensor mechanism is intact. Moderate to large joint effusion is present. No Alfaro's cyst. IMPRESSION: Vertical tear to posterior to the medial meniscus. Mild degenerative changes/chondromalacia at the medial joint line and of the patella, as detailed above. Moderate to large joint effusion. Hand X-Ray 03/29/23 Knee X-Ray 04/18/24 Knee MRI 05/25/22 Wrist X-Ray 04/18/24 Orthopedics Result Report 04/18/24 Cervical Spine X-Ray 04/08/21 Assessment and Plan Assessment and plan (1) Acute medial meniscus tear of left knee: Code(s): S83.242A - Other tear of medial meniscus, current injury, left knee, initial encounter Status: Acute Assessment and Plan: Patient has meniscal tear left. She has not responded to conservative treatment. She has been on quite extensive treatment medicine therapy cortisone exercise and time. She continues to have catching locking and pain. She would like to consider arthroscopic intervention. I discussed risks, benefits, limitations, and alternatives with the patient in detail. She understands would like to proceed. She is well aware the fact that I cannot get rid of the arthritis she has but should be able to get rid of any mechanical catching from the meniscus.
[2024-08-16] VITALS (9 sets, daily range): BP systolic 117–155; BP diastolic 60–96; PULSE 50–73; RESP 12–16; TEMP 36.4–36.6; O2SAT 94–100; BMI 33.6
--- OUTSIDE RECORDS SUMMARY | 2024-08-16 01:25 | XMS_ITS | Clinical Summary ---
Author Organization [facility] Address [address] [address] [place] [address] Care Team Providers Care Plater Hot Dip Name Role Phone Kaley Medina MD Unavailable Janna Caruso MD Unavailable Maria T Escobar MD Primary Care Provider [phone] Allergies Active Allergy Reactions Criticality Noted Date [...] dose 1 tablet 1 04/05/[address] (CYMBALTA) 60 mg capsule Take 1 capsule (60 mg total) by mouth 2 (two) times a day 180 capsule 1 07/24/19 25 026 Active HYDROcodone-ac etaminophen (NORCO) 5-325 mg per tabletIndicati ons:Pain Take 1-2 tablets by mouth 3 (three) times a day as needed for pain 180 tablet 08/22/[address] (CYMBALTA) 60 mg capsule Take 1 capsule (60 mg total) by mouth 2 (two) times a day 180 capsule 1 01/30/20 24 025 Discontinued HYDROcodone-ac etaminophen (NORCO) 5-325 mg per tabletIndicati ons:Pain Take 1-2 tablets by mouth 3 (three) times a day as needed for pain 180 tablet 06/21/19 25 025 Discontinued(Re order) HYDROcodone-ac etaminophen (NORCO) 5-325 mg per tabletIndicati ons:Pain Take 1-2 tablets by mouth 3 (three) times a day as needed for pain 180 tablet 07/22/19 25 025 Discontinued(Re order) Active Problems Problem Noted Date Diagnosed Date Bradycardia, unspecified 04/21/2023 Encounter for colonoscopy du e to history of adenomatous colonic polyps 06/25/2022 Overview (06/25/2022): Added automatically from request for surgery [id number] Anxiety disorder 08/24/2019 Sacroiliac joint pain 07/26/2019 Sacroiliitis 10/18/2018 Chronic bilateral low back pain with left-sided sciatica 10/18/2018 Other chronic pain 08/04/2018 Other specified anxiety disorders 08/04/2018 Encounters Date Type Department Care Team Description 08/11/[address] [phone] Janna Caruso MD pt call 08/04/2024 9:36 AM MANAGER AUTO - 08/04/2024 11:59 PM MANAGER AUTO Hospital Encounter [address] [phone] Janna Caruso MD Sacroiliitis Discharge Disposition: Discharge to home or self care 08/02/[address] [address] Adenike Khan RN Pre Arrival 07/24/[address] [address] Khushboo Begum RN PA - hydrocodone 05/31/2024 9:12 AM MANAGER AUTO - 05/31/2024 11:59 PM MANAGER AUTO Hospital Encounter [facility] Pain [address] [address] Janna Caruso MD Sacroiliitis (Primary Dx); Other chronic pain; Multiple sclerosis (HCC) Discharge Disposition: Discharge to home or self care from Last 3 Months Surgical History Surgery Date Site/Laterality Comments SECTION 1977 Caesarean Section SECTION 1979 Caesarean Section SECTION 1984 Caesarean Section HYSTERECTOMY 1991 Hysterectomy BELT ABDOMINOPLASTY 2001 Tummy Tuck MA TONSILLECTOMY PRIMARY/SEC ONDARY <AGE 13 Tonsillectomy - (Added by TW Conv) Medical History Medical History Date Comments Anxiety disorder Anxiety - (Adde d by TW Conv) Supraventricular tachycardia Sup raventricular tachycardia - (Added by TW Conv) Personal history of other di seases of the circulatory system History of hypertension - (A dded by TW Conv) Personal history of other me ntal and behavioral disorders History of depression - (Add ed by TW Conv) Hypertension Hyperlipidemia SVT (supraventricular tachycardia) Chronic pain Family History Medical History Relation [...] on file Legal Sex Female 1:56 AM MANAGER AUTO Gender Identity Not on file Sexual Orientation [...] Comments Blood Pressure 176/95 08/04/2024 10:25 AM MANAGER AUTO Pulse 71 08/04/2024 10:25 AM MANAGER AUTO Temperature 36.3 C (97.3 F) 08/04/2024 9:44 AM MANAGER AUTO Respiratory Rate 16 08/04/2024 10:25 AM MANAGER AUTO Oxygen Saturation 97% 08/04/2024 10:25 AM MANAGER AUTO Inhaled Oxygen Concentration - - Weight 77.6 kg (171 lb) 05/19/2023 10:19 AM MANAGER AUTO Height 154.9 cm (5' 1 ) 05/19/2023 10:19 AM MANAGER AUTO Body Mass Index 32.31 05/19/2023 10:19 AM MANAGER AUTO Plan of Treatment Health Maintenance Due Date [...] Chronic Care Management No change(07/16 9:44 AM MANAGER AUTO) No Sierra Isabel RN Note: Problem: Chronic Pain Goals: 1. Minimize further functional decline 2. Maximize quality of life 3. Control pain Strategies: - Activity/exercise program recommendation - Conservative stepwise pain medicine strategy with multi-disciplinary approach - Recommend healthy lifestyle strategies and compensatory methods as needed Reduce the likelihood of falling Lifestyle On track(08/04 9:44 AM MANAGER AUTO) Kitty Lind Note: Below are four things [...] Read Routine (OP Routine) 08/04/2024 10:36 AM MANAGER AUTO Sacroiliitis THINPREP IMAGING PAP AND HPV MRNA E6/E7 REFLEX HPV 16,18/45 Routine 02/05/2021 10:20 AM CDT Routine gynecological examination SCREENING MAMMOGRAM BILATERAL W LUKE Schedule Routine, Read Routine (OP Routine) 01/06/2018 1:06 PM CDT Encounter for screening mammogram for malignant neoplasm of breast COLONOSCOPY REPORT 04/30/2017 from Last 3 Months or Most Recently Relevant to Health Maintenance Results * Imaging SI Joint Injection Bilateral (13137) (08/04/2024 10:36 AM MANAGER AUTO) Narrative [facility] - 08/04/2024 11:12 AM MANAGER AUTO The images from this study are not interpreted by Radiology. Please refer to the physician's procedure / OR operative note. Janna Caruso MD IMG PAIN MGMT PROCEDU RES Final Result [facility] * ThinPrep(R) Imaging Pap and HPV mRNA E6/E7 Reflex HPV 16,18/45 (02/05/2021 10:20 AM CDT) CLINICAL INFORMATION: [facility] Comment:Information not prov ided LMP [facility] Comment:NONE GIVEN Previous Pap [facility] Comment:NONE GIVEN Prev. Bx [facility] Comment:NONE GIVEN SOURCE: [facility] Comment:None given Pap, specimen adequacy [facility] Comment: Satisfactory for evaluation. Endocervical/transformation zone component present. HPV interp [facility] Comment:Negative for intraep ithelial lesion or malignancy. Infection: [facility] Comment: Fungal organisms morphologically consistent with Anh spp. COMMENTS [facility] Comment: This Pap test has been evaluated with computer assisted technology. Silk Trimmer [facility] Comment: TMK, CT(ASCP) CT screening location: [place] [address] [address] [place] [address] Review public works director [facility] Comment: BES, CT(ASCP) CT screening location: [place] [address] [address] [place] [address] Comment [facility] Comment: EXPLANATORY NOTE: The Pap is [...] High Risk E6/E7 Not Detected Not Detected [facility] esolidar Emilie Comment: Methodology: Senior Analyst-Mediated Amplification This assay detects E6/E7 viral messenger RNA (mRNA) from 14 high-risk HPV types (16,18,31,33,35,39,45,51,52,56,58,59,66,68). The analytical performance characteristics of this assay have been determined by [employer]. The modifications have not been cleared or approved by the FDA. This assay has been validated pursuant to the CLIA regulations and is used for clinical purposes. For additional information, please refer to http://education.Unigo/faq/NZW568h7 (This link if provided for information/ educational purposes only.) Swab 02/05/2021 10:2 0 AM CDT 02/06/2021 1:57 AM CDT us Ronda Macario DIE ENGRAVER LAB CYTOLOGY ORDERABLES Final Result [facility] [address] [place] [address] [facility] [address] [place] [address] * Screening Mammogram Bilateral W Luke (01/06/2018 [...] Most Recently Relevant to Health Maintenance Insurance [employer] [place] [address] [facility] CHOICE PLUS [employer] MEDICARE SOLUTIONS [place] [id number] Care Teams Plater Hot Dip Relationship Specialty Start Date End Date Maria T Escobar MD [address] [place] [address] PCP - General Family Medicine 06/23/22 [place] [address] [place] [address] Wire Lather Obstetrics and Gynecology 11/12/20 Janna Caruso MD [address] [place] [address] Consulting Physician Pain Management 10/18/18
--- OUTSIDE RECORDS SUMMARY | 2024-08-16 01:25 | XMS_ITS | Encounter Summary ---
Author Organization [facility] Address [address] [place] [address] Care Team Providers Care Tariff Supervisor Name Role Phone Kaley Medina MD Unavailable [phone] Janna Caruso MD Unavailable Maria T Escobar MD Primary Care Provider [phone] Reason for Visit * Reason Onset Date Comments PA - hydrocodone 07/24/2024 Encounter Details Date Type Department Care Team (Late st Contact Info) Description 07/24/2024 Telephone [facility] [address] [facility] [address] [place] [address] Khushboo Begum RN PA - [...] on file Legal Sex Female 1:56 AM CONTRACT MANAGEMENT SPECIALIST Gender Identity Not on file Sexual Orientation Not on file documented as of this encounter Miscellaneous Notes * Telephone Encounter - Khushboo Begum RN - 07/24/2024 9:00 AM CST [place]: [id number] Hydrocodone/apap 5/325mg needs PA. RACT MANAGEMENT SPECIALIST documented in this encounter Plan of Treatment Not on file documented as of this encounter Goals Goal Patient Goal Type Associated Problems Recent Progress Patient-Stated? Author CCM Chronic Pain Care Plan Chronic Care Management No change(07/16 9:44 AM CONTRACT MANAGEMENT SPECIALIST) No Sierra Isabel RN Note: Problem: Chronic Pain Goals: 1. Minimize further functional decline 2. Maximize quality of life 3. Control pain Strategies: - Activity/exercise program recommendation - Conservative stepwise pain medicine strategy with multi-disciplinary approach - Recommend healthy lifestyle strategies and compensatory methods as needed Reduce the likelihood of falling Lifestyle On track(08/04 9:44 AM CONTRACT MANAGEMENT SPECIALIST) No Kitty Morse Note: Below are four [...] on filedocumented in this encounter Care Teams Tariff Supervisor Relationship Specialty Start Date End Date Maria T Escobar MD [address] [place] [address] PCP - General Family Medicine 06/23/22 [place] [address] [place] [address] Adjunct Faculty Mathematics Department Obstetrics and Gynecology 11/12/20 Janna Caruso MD [address] [place] [address] Consulting Physician Pain Management 10/18/18 documented as of this encounter
--- OUTSIDE RECORDS SUMMARY | 2024-08-16 01:25 | XMS_ITS | Continuity of Care Document ---
Author Organization [facility] Address [address] [place] [address] Phone Care Team Providers Care Optics Engineer Name Role Phone Antolin Salmeron MD Unavailable Unavailable Advance Directives Directive Yes / No Effective Date File Name No Information Encounters Encounter Description Practice Location Reason(s) For Visit Diagnoses Date Provider Providers [facility] on [facility] [address] [place], [place], [id number], [place] tel:[phone] [facility] No Information Jaron Dangelo. [address] [place], [place], [id number], [place]. tel:[phone] Referring Provider: Nick Weir DO, [facility] [address], [place], [address]. tel:[phone] Family History Family Member Type Diagnosis Age At Onset No Information Payers Payer name Insurance type Covered republican ID Authoriza tion(s) [facility] CI [id number] Social History Type Description Quantity Date [...]
--- OUTSIDE RECORDS SUMMARY | 2024-08-16 01:25 | XMS_ITS | Encounter Summary ---
Author Organization [facility] Healthcare Address [address] [place] [address] Care Team Providers Care Emergency Vehicle Operations Instructor Name Role Phone Paul Sargent MD Primary Care Provider [phone]- [phone] Solange Raza MD Primary Care Provider +- [phone] Unknown, Notinfile Primary Care Provider Unavail able Kaley Medina MD Unavailable [phone] No, Physician Primary Care Provider [phone] Kaley Medina MD Unavailable [phone] Janna Caruso MD Unavailable Maria T Escobar MD Primary Care Provider [phone] Encounter Details Date Type Department Care Team (Late st Contact Info) Description 01/17/2018 Hospital Encounter [facility] [address] [place] [address] Social History Tobacco Use Types Packs/Day Years [...] on file Legal Sex Female 1:56 AM BOOSTER PUMP OPERATOR Gender Identity Not on file Sexual [...] Chronic Care Management No change(07/16 9:44 AM BOOSTER PUMP OPERATOR) No Sierra Isabel, RN Note: Problem: Chronic Pain Goals: 1. Minimize further functional decline 2. Maximize quality of life 3. Control pain Strategies: - Activity/exercise program recommendation - Conservative stepwise pain medicine strategy with multi-disciplinary approach - Recommend healthy lifestyle strategies and compensatory methods as needed Reduce the likelihood of falling Lifestyle On track(08/04 9:44 AM BOOSTER PUMP OPERATOR) Kitty Lind Note: Below are four [...] stairs Contact your local community or [facility] for information on exercise, fall prevention programs, or options for improving home safety. 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/2012 08/30/201201/29 5:00 AM CDT documented as of this encounter Care Teams Emergency Vehicle Operations Instructor Relationship Specialty Start Date End Date Paul [place] [address] PCP - General 09/04/16 02/21/19 Solange Raza MD [address] [place] [address] PCP - General 02/22/19 10/21/20 Unknown, Notinfile PCP - General 10/22/20 11/11/20 No, Physician PCP - General 11/12/20 06/22/22 Maria T Escobar MD [address] [place] [place] [address] PCP - General Family Medicine 06/23/22 Kaley Medina MD [address] [place] [address] Reset Merchandiser Obstetrics and Gynecology 11/12/20 Kaley Medina MD [address] [place] [address] Reset Merchandiser Obstetrics and Gynecology 11/12/20 11/12/20 Janna Caruso MD [address] [place] [place] [address] Consulting Physician Pain Management 10/18/18 documented as of this encounter
--- OUTSIDE RECORDS SUMMARY | 2024-08-16 01:25 | XMS_ITS | Continuity of Care Document ---
Author Organization [facility] Address [address] [place] [address] Phone Care Team Providers Care Semiconductor Manufacturing Technician Name Role Phone Anna Bueno Unavailable Unavailable Advance Directives Directive Yes / No Effective Date File Name No Information Encounters Encounter Description Practice Location Reason(s) For Visit Diagnoses Date Provider Providers Copied on Encounter [facility], [address] [place] [address] [address], [place], [place], [id number], [place] tel:[phone] [facility] No Information 0 [phone] Ximena Castillo. [address] , [address], [place], [address], [place]. tel:[phone] Family History Family Member Type Diagnosis Age At Onset No Information Payers Payer name Insurance type Covered libertarian ID Authoriza tion(s) General [place] Commercial CI [id number] Social History Type Description Quantity Date Captured [...]
--- OUTSIDE RECORDS SUMMARY | 2024-08-16 01:25 | XMS_ITS | Referral Summary ---
Author Organization [facility] Address [address] [place] [address] Care Team Providers Care Mobile Crane Operator Name Role Phone Kaley Medina MD Unavailable Janna Caruso MD Unavailable Maria T Escobar MD Primary Care Provider [phone] Encounters Date Type Department Care Team Description 08/11/2024 Telephone [facility] [address] [address] Janna Caruso MD pt call 08/04/2024 9:36 AM MOLECULAR GENETICIST - 08/04/2024 11:59 PM MOLECULAR GENETICIST Hospital Encounter [facility] at [address] [address] Janna Caruso MD Sacroiliitis Discharge Disposition: Discharge to home or self care 08/02/2024 Telephone [facility] [address] [address] Adenike Khan RN Pre Arrival 07/24/2024 Telephone [facility] [address] [address] Khushboo Begum RN PA - hydrocodone 05/31/2024 9:12 AM MOLECULAR GENETICIST - 05/31/2024 11:59 PM MOLECULAR GENETICIST Hospital Encounter [facility] at [facility] [address]st [place] [address] Janna Caruso MD Sacroiliitis (Primary Dx); [...] Active NARCAN 4 mg/actuation spray,non-aero fred 07/30/19 Active baclofen (LIORESAL) 10 mg tablet Take [...] (06/25/2022): Added automatically from request for surgery [id number] Anxiety disorder 08/24/2019 Sacroiliac joint pain 07/26/2019 [...] on file Legal Sex Female 1:56 AM MOLECULAR GENETICIST Gender Identity Not on file Sexual Orientation Not on file Last Filed Vital Signs Vital Sign Reading Time Taken Comments Blood Pressure 176/95 08/04/2024 10:25 AM MOLECULAR GENETICIST Pulse 71 08/04/2024 10:25 AM MOLECULAR GENETICIST Temperature 36.3 C (97.3 F) 08/04/2024 9:44 AM MOLECULAR GENETICIST Respiratory Rate 16 08/04/2024 10:25 AM MOLECULAR GENETICIST Oxygen Saturation 97% 08/04/2024 10:25 AM MOLECULAR GENETICIST Inhaled Oxygen Concentration - - Weight 77.6 kg (171 lb) 05/19/2023 10:19 AM MOLECULAR GENETICIST Height 154.9 cm (5' 1 ) 05/19/2023 10:19 AM MOLECULAR GENETICIST Body Mass Index 32.31 05/19/2023 10:19 AM MOLECULAR GENETICIST Plan of Treatment Not on file Goals Goal Patient Goal Type Associated Problems Recent Progress Patient-Stated? Author CCM Chronic Pain Care Plan Chronic Care Management No change(07/16 9:44 AM MOLECULAR GENETICIST) Sierra Garcia RN Note: Problem: Chronic Pain Goals: 1. Minimize further functional decline 2. Maximize quality of life 3. Control pain Strategies: - Activity/exercise program recommendation - Conservative stepwise pain medicine strategy with multi-disciplinary approach - Recommend healthy lifestyle strategies and compensatory methods as needed Reduce the likelihood of falling Lifestyle On track(08/04 9:44 AM MOLECULAR GENETICIST) Kitty Lind Note: Below are four things [...] on stairs Contact your local community or [facility] for information on exercise, fall prevention programs, or options for improving home safety. Procedures Procedure Name Priority Date/Time Associated Diagnosis Comments PAIN MGMT IMAGING SI JOINT BILATERAL ARTHROGRPHY Schedule Routine, Read Routine (OP Routine) 08/04/2024 10:36 AM MOLECULAR GENETICIST Sacroiliitis THINPREP IMAGING PAP AND HPV MRNA [...] Results * Imaging SI Joint Injection Bilateral (38968) (08/04/2024 10:36 AM MOLECULAR GENETICIST) Narrative [facility] - 08/04/2024 11:12 AM MOLECULAR GENETICIST The images from this study are not interpreted by Radiology. Please refer to the physician's procedure / OR operative note. us Janna Caruso MD IMG PAIN MGMT PROCEDU RES Final Result [facility] * ThinPrep(R) Imaging Pap and HPV mRNA E6/E7 Reflex HPV 16,18/45 (02/05/2021 10:20 AM CDT) CLINICAL INFORMATION: [facility] Comment:Information not prov ided LMP [facility] Comment:NONE GIVEN Previous Pap [facility] Comment:NONE GIVEN Prev. Bx [facility] Comment:NONE GIVEN SOURCE: [facility] Comment:None given Pap, specimen adequacy [facility] Comment: Satisfactory for evaluation. Endocervical/transformation zone component present. HPV interp [facility] Comment:Negative for intraep ithelial lesion or malignancy. Infection: [facility] Comment: Fungal organisms morphologically consistent with Anh spp. COMMENTS [facility] Comment: This Pap test has been evaluated with computer assisted technology. Community Chest Officer Que [facility] Comment: TMK, CT(ASCP) CT screening location: [place] [address] [address] [address] Review wool shearing supervisor [facility] Comment: BES, CT(ASCP) CT screening location: [place] [address] [address] [place] [address] Comment [facility] Comment: EXPLANATORY NOTE: The Pap is [...] Not Detected Not Detected [facility] Comment: Methodology: Director Geophysical Laboratory-Mediated Amplification This assay detects E6/E7 viral messenger RNA (mRNA) from 14 high-risk HPV types (16,18,31,33,35,39,45,51,52,56,58,59,66,68). The analytical performance characteristics of this assay have been determined by [employer]. The modifications have not been cleared or approved by the FDA. This assay has been validated pursuant to the CLIA regulations and is used for clinical purposes. For additional information, please refer to http://education.Definigen.RunMyProcess/faq/ESR120b7 (This link if provided for information/ educational purposes only.) Swab 02/05/2021 10:2 0 AM CDT 02/06/2021 1:57 AM CDT Ronda Macario AIRPORT TRAFFIC CONTROLLER LAB CYTOLOGY ORDERABLES Final Result [facility] [address] [place] [address] [facility] [address] [place] [address] * Screening Mammogram Bilateral W Luke (01/06/2018 [...] Most Recently Relevant to Health Maintenance Insurance [facility] [employer] MEDICARE SOLUTIONS [place] [id number] [facility] CHOICE PLUS IDPA MEDICARE [facility] MEDICARE Address: [address] [address] [place] [address] [place] [address] Care Teams Mobile Crane Operator Relationship Specialty Start Date End Date Maria T Escobar MD [address] [place] [address] PCP - General Family Medicine 06/23/22 [place] [address] [place] [address] Buyer Liaison Obstetrics and Gynecology 11/12/20 Janna Caruso MD [address] [place] [address] Consulting Physician Pain Management 10/18/18
--- OUTSIDE RECORDS SUMMARY | 2024-08-16 01:25 | XMS_ITS | Clinical Summary ---
Author Organization [facility] Address [address] [place] [address] Care Team Providers Care Conventional Machinist Name Role Phone Unavailable Primary Care Provider Unavailabl e Encounters Date Type Department Care Team Description 08/15/2024 External Device Data STL ABSTRACTION Provider, Abstract 08/01/2024 External Device Data [facility] ABSTRACTION Provider, Abstract 07/05/2024 External Device Data ST[facility] ABSTRACTION Provider, Abstract 07/04/2024 External Device Data STL ABSTRACTION Provider, Abstract 06/20/2024 External Device Data STL ABSTRACTION Provider, Abstract 06/01/2024 12:45 PM LACQUER PIN PRESS OPERATOR Ancillary Procedure [facility] [address] [address] Jorgito Jaramillo MD Ot tear of medial [...] WO CONTRAST LEFT Routine 06/01/2024 1:16 PM LACQUER PIN PRESS OPERATOR Oth tear of medial meniscus, current injury, left knee, init from Last 3 Months Results * MRI KNEE WO CONTRAST LEFT (06/01/2024 1:16 PM LACQUER PIN PRESS OPERATOR) Anatomical Region Laterality Modality Lower Extremity Magnetic Resonan ce 06/01/2024 1:17 PM LACQUER PIN PRESS OPERATOR Impressions 06/01/2024 1:49 PM LACQUER PIN PRESS OPERATOR IMPRESSION: 1. Nondisplaced horizontal undersurface tear of the body of the left medial meniscus. 2. Mild to moderate tendinopathy of the distal left semimembranosus tendon without evidence of associated tear. 3. Moderate to severe medial and patellofemoral compartment predominant tricompartmental left knee osteoarthritis with small effusion and trace Alfaro's cyst. Narrative 06/01/2024 1:49 PM LACQUER PIN PRESS OPERATOR EXAM: MRI KNEE WO CONTRAST LEFT DATE: [...] small foci of subchondral edema. There is bvyz-ts-mllvljdl partial-thickness chondrosis of the posterior weightbearing medial [...] bone marrow signal is normal. There is pyio-li-vnruapit tendinopathy of the distal semimembranosus tendon without [...] small foci of subchondral edema. There is zzfw-qx-raeesuty partial-thickness chondrosis of the posterior weightbearing medial [...] bone marrow signal is normal. There is gexi-no-uyfltpya tendinopathy of the distal semimembranosus tendon without [...] Final Result from Last [address] [facility] [id number]
--- OUTSIDE RECORDS SUMMARY | 2024-08-16 01:25 | XMS_ITS | Encounter Summary ---
Author Organization [facility] Healthcare Address [address] [place] [address] Care Team Providers Care Transfer Knitter Name Role Phone Paul Sargent MD Primary Care Provider [phone]- [phone] Solange Raza MD Primary Care Provider +- [phone] Unknown, Notinfile Primary Care Provider Unavail able Kaley Medina MD Unavailable [phone] No, Physician Primary Care Provider [phone] Kaley Medina MD Unavailable [phone] Janna Caruso MD Unavailable [phone] Maria T Escobar MD Primary Care Provider [phone] Encounter Details Date Type Department Care Team (Late st Contact Info) Description 07/06/2018 Telephone [facility] at [place] [address] [place] [address] Khushboo Lunsford RN Social History Tobacco Use Types Packs/Day Years Used Date Smoking Tobacco: Former Cigarettes Q uit: 12/02/2005 Smokeless Tobacco: Never Alcohol Use Standard Drinks/Week Comments No 0 (1 standard drink = 0.6 oz pur e alcohol) Comments No Sex and Gender Information Value Date Recorded Sex Assigned at Not on file Legal Sex Female 1:56 AM THROAT CUTTER Gender Identity Not on file Sexual Orientation Not on file documented as of this encounter Plan of Treatment Not on file documented as of this encounter Goals Goal Patient Goal Type Associated Problems Recent Progress Patient-Stated? Author CCM Chronic Pain Care Plan Chronic Care Management No change(07/16 9:44 AM THROAT CUTTER) No Sierra Isabel, RN Note: Problem: Chronic Pain Goals: 1. Minimize further functional decline 2. Maximize quality of life 3. Control pain Strategies: - Activity/exercise program recommendation - Conservative stepwise pain medicine strategy with multi-disciplinary approach - Recommend healthy lifestyle strategies and compensatory methods as needed Reduce the likelihood of falling Lifestyle On track(08/04 9:44 AM THROAT CUTTER) Kitty Lind Note: Below are four [...] on stairs Contact your local community or [facility] for information on exercise, fall prevention programs, or options for improving home safety. 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/2012 08/30/201201/29 5:00 AM CDT documented as of this encounter Care Teams Transfer Knitter Relationship Specialty Start Date End Date Paul Sargent MD [address] [place], [place] [id number] PCP - General 09/04/16 02/21/19 Solange Raza MD [address] [place] [address] PCP - General 02/22/19 10/21/20 Unknown, Notinfile PCP - General 10/22/20 11/11/20 No, Physician PCP - General 11/12/20 06/22/22 Maria T Escobar MD [address] [facility] [place] [address] PCP - General Family Medicine 06/23/22 Kaley Medina MD [address] [place] [address] Banking Paralegal Obstetrics and Gynecology 11/12/20 Kaley Medina MD [address] [place] [address] Banking Paralegal Obstetrics and Gynecology 11/12/20 11/12/20 Janna Caruso MD [address] [facility] [place] [address] Consulting Physician Pain Management 10/18/18 documented as of this encounter
--- OUTSIDE RECORDS SUMMARY | 2024-08-16 01:26 | XMS_ITS | Encounter Summary ---
Author Organization [facility] Address [address] [place] [address] Care Team Providers Care Bead Wrapper Name Role Phone Unavailable Primary Care Provider Unavailabl e Encounter Details Date Type Department Care Team (Late st Contact Info) Description 08/15/2024 External Device Data STL ABSTRACTION [...]
--- OUTSIDE RECORDS SUMMARY | 2024-08-16 01:26 | XMS_ITS | Encounter Summary ---
Author Organization [facility] Healthcare Address [address] [place] [address] Care Team Providers Care Talent Scout Name Role Phone Kaley Medina MD Unavailable No, Physician Primary Care Provider [phone] Janna Caruso MD Unavailable Maria T Escobar MD Primary Care Provider [phone] Reason for Visit * Reason Onset Date Comments precall 04/24/2021 Encounter Details Date Type Department Care Team (Late st Contact Info) Description 04/24/2021 Telephone [facility] [address] 1st [place] [address] Karli Sapp, RN precall Social [...] file Legal Sex Female 1:56 AM MANAGER COMMERCIAL SALES Gender Identity Not on file Sexual Orientation Not on file documented as of this encounter Plan of Treatment Not on file documented as of this encounter Goals Goal Patient Goal Type Associated Problems Recent Progress Patient-Stated? Author CCM Chronic Pain Care Plan Chronic Care Management No change(07/16 9:44 AM MANAGER COMMERCIAL SALES) No Sierra Isabel, RN Note: Problem: Chronic Pain Goals: 1. Minimize further functional decline 2. Maximize quality of life 3. Control pain Strategies: - Activity/exercise program recommendation - Conservative stepwise pain medicine strategy with multi-disciplinary approach - Recommend healthy lifestyle strategies and compensatory methods as needed Reduce the likelihood of falling Lifestyle On track(08/04 9:44 AM MANAGER COMMERCIAL SALES) Kitty Lind Note: Below are four things [...] on stairs Contact your local community or [facility] for information on exercise, fall prevention programs, or options for improving home safety. documented as of this encounter Visit Diagnoses Not on filedocumented in this encounter Care Teams Talent Scout Relationship Specialty Start Date End Date No, Physician PCP - General 11/12/20 06/22/22 Maria T Escobar MD [address] [place] [address] PCP - General Family Medicine 06/23/22 [place] [address] [place] [address] Plasma Processing Technician Obstetrics and Gynecology 11/12/20 Janna Caruso MD [address] [place] [address] Consulting Physician Pain Management 10/18/18 documented as of this encounter
--- OUTSIDE RECORDS SUMMARY | 2024-08-16 01:26 | XMS_ITS | Encounter Summary ---
Author Organization [facility] Healthcare Address [address] [place] [address] Care Team Providers Care Narrow Fabric Loom Fixer Name Role Phone Paul Sargent MD Primary Care Provider + [phone] Solange Raza MD Primary Care Provider + [phone] Unknown, Notinfile Primary Care Provider Unavail able Kaley Medina MD Unavailable [phone] No, Physician Primary Care Provider [phone] Kaley Medina MD Unavailable [phone] Janna Caruso MD Unavailable [phone] Maria T Escobar MD Primary Care Provider [phone] Reason for Visit * Reason Onset Date Comments Med Refill 02/23/2018 Hydrocodone 5/32 5 #90 Carisoprodol 305MG #90 Please mail to home address Encounter Details Date Type Department Care Team (Late st Contact Info) Description 02/23/2018 Telephone [facility] at [address] [place] [address] Paul Rolon MD [address] [address] Med Refill (Hydrocodone 5/325 #90 [...] on file Legal Sex Female 1:56 AM LPN CMA Gender Identity Not on file Sexual Orientation [...] Chronic Care Management No change(07/16 9:44 AM LPN CMA) No Sierra Isabel, RN Note: Problem: Chronic Pain Goals: 1. Minimize further functional decline 2. Maximize quality of life 3. Control pain Strategies: - Activity/exercise program recommendation - Conservative stepwise pain medicine strategy with multi-disciplinary approach - Recommend healthy lifestyle strategies and compensatory methods as needed Reduce the likelihood of falling Lifestyle On track(08/04 9:44 AM LPN CMA) No Kitty Morse Note: Below are four [...] documented as of this encounter Care Teams Narrow Fabric Loom Fixer Relationship Specialty Start Date End Date Paul Sargent MD [address] [place] [address] PCP - General 09/04/16 02/21/19 Solange Raza MD [address] [place], [place] [address] PCP - General 02/22/19 10/21/20 Unknown, Notinfile PCP - General 10/22/20 11/11/20 No, Physician PCP - General 11/12/20 06/22/22 Maria T sEcobar MD [address] [facility] [place] [address] PCP - General Family Medicine 06/23/22 [place] [address] [place] [address] Chemical Processing Technician Obstetrics and Gynecology 11/12/20 [place] [address] [place] [address] Chemical Processing Technician Obstetrics and Gynecology 11/12/20 11/12/20 Janna Caruso MD [address] [facility] [place] [address] Consulting Physician Pain Management 10/18/18 documented as of this encounter
[2024-08-16] MEDS: LACTATED RINGERS 1,000 ML 30 ML IV CONT (06:25)
[2024-08-16] MEDS: ACETAMINOPHEN 500 MG TABLET 1000 MG PO (06:30)
[2024-08-16] MEDS: KETOROLAC 15 MG/ML VIAL (*BKC) IV PUSH (06:30)
--- NOTE | 2024-08-16 06:44 | WPDHPUPDATE1 ---
History and Physical Update Update Date/Time: 08/16/24 06:44 History and Physical has been reviewed, including an updated exam of the patient. There are NO changes in the patient's condition. Risks, benefits, and alternatives have been discussed and questions answered. Patient agrees to proceed with procedure. Will proceed with arthroscopy, partial meniscectomy, proceed as indicated.
[2024-08-16] MEDS: SCOPOLAMINE 1 MG PATCH 1 PATCH TRANSDERM (07:07)
--- NOTE | 2024-08-16 07:10 | WPDANESEPPF ---
Anes - Initial Pre Proc Eval Procedure: Operation Date: 08/16/24 07:30 Proposed Procedures p Left Knee Arthroscopy, Partial Meniscectomy, Proceed As Indicated - Jorgito Jaramillo MD Date/Time: 08/16/24 07:10 Surgeon: Jorgito Jaramillo MD Pre Op Diagnosis: left knee medial meniscal tear Patient Data Age: 63 Gender: F Height: 1.57 m Weight: 83.4 kg Allergies Allergy/AdvReac Type Severity Reaction Status Date / Time gabapentin Allergy Severe disorientat Verified 08/16/24 06:48 ion morphine AdvReac Intermediate Nausea and Verified 08/16/24 06:48 Vomiting codeine AdvReac Mild Nausea Verified 08/16/24 06:48 cortisone AdvReac Mild Nausea Verified 08/16/24 06:48 erythromycin base AdvReac Mild Nausea Verified 08/16/24 06:48 Penicillins AdvReac Mild Nausea Verified 08/16/24 06:48 Home Medications ?Medication ?Instructions ?Recorded ?Confirmed ?Type baclofen 10 mg tablet 10 mg PO TID 06/15/19 08/16/24 History cholecalciferol (vitamin D3) 50 2,000 unit PO DAILY 06/15/19 08/16/24 History mcg (2,000 unit) tablet hydrocodone 5 mg-acetaminophen 325 2 tablet PO TID PRN Pain 06/15/19 08/16/24 History mg tablet ascorbic acid (vitamin C) 500 mg 500 mg PO DAILY 08/01/19 08/16/24 History capsule aspirin 81 mg tablet,delayed 81 mg PO DAILY 08/01/19 08/16/24 History release (Adult Low Dose Aspirin) biotin 10,000 mcg capsule 10,000 mcg PO DAILY 08/01/19 08/16/24 History mecobalamin (vitamin B12) 1,000 1,000 mcg PO DAILY 08/01/19 08/16/24 History mcg chewable tablet vitamin E (dl, acetate) 180 mg 400 unit PO DAILY 08/01/19 08/16/24 History (400 unit) capsule hydroxyzine HCl 25 mg tablet 25 mg PO QID PRN Anxiety 08/03/22 08/16/24 History duloxetine 30 mg capsule,delayed 90 mg PO DAILY 10/14/22 08/16/24 History release (Cymbalta) meloxicam 15 mg tablet 15 mg PO DAILY #90 tabs 05/24/23 08/16/24 Rx atorvastatin 40 mg tablet See Rx Instructions .Route 03/01/24 08/16/24 Rx .COMPLEX #100 tabs calcium polycarbophil 625 mg 1,250 mg PO DAILY 07/05/24 08/16/24 History tablet (Fiber (calcium polycarbophil)) magnesium 250 mg tablet 250 mg PO DAILY 07/05/24 08/16/24 History metoprolol tartrate 50 mg tablet 100 mg (2 x 50 mg) PO BID 30 days 08/08/24 08/16/24 Rx #120 tabs hydrochlorothiazide 25 mg tablet 25 mg PO DAILY #90 tabs 08/11/24 08/16/24 Rx lansoprazole 30 mg capsule,delayed See Rx Instructions .Route 08/12/24 08/16/24 Rx release .COMPLEX #100 caps losartan 50 mg tablet 50 mg PO DAILY #30 tabs 08/14/24 08/16/24 Rx Patient hx anesthesia problems: post op nausea/vomiting Family hx anesthesia problems: none Results Review: All pre-operative results and documents have been reviewed as part of the pre-operative evaluation. [facility] Past Medical History Medical History Inflammatory arthritis Chronic narcotic use Tear of medial meniscus of left knee De Quervain's tenosynovitis, right First dorsal compartment release, 08/03/[address] 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 decompression May 2014 History of carpal tunnel release 1995 History of foot surgery Hammer toe 1993 History of tonsillectomy 1974 History of sacrocolpopexy 07/2016- History of abdominoplasty 2001 H/O: hysterectomy 1991 H/O section 1977,1979,1984 Family History Family History Father Hypertension Family history of lung cancer Diabetes mellitus Grandparent Hypertension Pulmonary embolism Sibling Hypertension Heart disease Mother Hypertension Diabetes mellitus Breast cancer CHF (congestive heart failure) Social History Social History Smoking packs per day: 1 Smoking cigarettes per day: 20.0 Years smoked: 20 Smoking pack-years: 20.00 Smoking status: Former smoker Tobacco type: cigarettes Second hand tobacco smoke exposure: No Smoking end date: 08/08/05 Additional smoking assessment comments: cigarettes 1ppd x30 years Alcohol intake: current Drinks per week: 1 Alcohol use details: occassionally Substance use: never Substance use type: does not use Other substance usage details: PATIENT GETS THIS FROM PAIN MANAGEMENT. Do You Feel Safe in your Home?: Yes Lack of Transportation: No Lack of Food: Never True Current Housing: I Have Housing Concerned About Future Housing: No Difficulty Paying Gas/Electric Bills: No Difficulty Paying for Meds: No Currently Unemployed: No Education: Bachelor's Degree Difficulty w/ Childcare or Family Care: No Living arrangements: with family Additional living arrangements comments: Spouse Occupation/Education: unemployed Gender identity (if verbalized by the patient): Female Spiritual care concerns: No Anes - Eval Final PreProcedure Day of Procedure 08/16/24 07:10 Patient weight: obese Lungs: normal air movement Airway: Mallampati scale class II Neurological: alert and oriented Last oral intake: >/= 8 hours ASA classification: III Emergent: no Anesthetic plan: proceed Anesthesia type and monitoring: general LMA and standard monitoring Results Review: All pre-operative results and documents have been reviewed as part of the pre-operative evaluation. HTN, hyperlipidemia, hx of SVT in the past, now on b bjorn bid, taken this am. Ex smoker quit 2005. Informed Consent: The patient's anesthetic plan and its attendant risks and benefits were discussed with the patient/family/POA. Questions were solicited and answers provided to the satisfaction of the patient/family/POA.
[2024-08-16] MEDS: ceFAZolin 2 GM/D5W 50 ML 2 GM/50 ML BAG IVPB (07:35)
[2024-08-16] MEDS: LIDO 1%/EPINEPHRINE 1:100,000 20 ML VIAL INFILTRATE (07:54)
--- NOTE | 2024-08-16 08:09 | W.PM.PROC2 ---
Procedure Note - Detailed Date of Procedure 08/16/24 Pre-op Diagnosis LEFT knee medial meniscal tear Post-op Diagnosis Same Procedure Performed LEFT knee arthroscopy with partial meniscectomy Surgeon Jorgito Jaramillo MD Anesthesia General Indications Pain, Locking and Catching Description of Procedure Patient brought to operating room # 7. An anesthetic was administered. The knee was sterilely prepped and draped in the usual manner. Standard portals were used. Superior medial portal was used for the outflow cannula, inferior lateral portal was used for the scope, inferior medial portal was used for the instruments. Arthroscopy was performed, the patellar femoral joint degenerative changes. The medial compartment showed a complex tear, posteriorly. The lateral compartment showed fraying and degeneration. The ACL was intact. Using baskets and brett the meniscal tear was trimmed back to a stable base so the nothing further could be pulled into the joint. Any loose or delaminated fragments were gently trimmed to a stable base. At this point the instruments were withdrawn, sutures placed and patient left the operating room in satisfactory condition. Estimated Blood Loss 20 Drains No Packing No Pathology None sent Complications No immediate complications Condition Stable Disposition PACU [facility] Billing Surgery - Charge Forward: Surgery Billing ([id number])
[2024-08-16] MEDS: fentaNYL CITRATE INJ (*CRX) 100 MCG/2 ML VIAL 25 MCG IV PUSH ×8 (08:37→08:56)
[2024-08-16] MEDS: HYDROcodone/acetaminophen (*CRX) 5-325 MG TABLET 1 TAB PO (09:24)
== END 2024-08-16 10:20 | disposition home or self-care (01) ==
PROVIDERS: PCP Family Medicine; Visit Provider Orthopaedic Surgery
PROC: (CPT 29870; principal; 2024-08-16 07:30)
DX: M23.332 Other meniscus derangements, other medial meniscus, left knee (principal); Z87.891 Personal history of nicotine dependence; E66.9 Obesity, unspecified; Z68.33 Body mass index [BMI] 33.0-33.9, adult
CPT/HCPCS: 29881; A9270; J0690; J1885; J2003; J2004; J2250; J2405; J2704; J3010; J7120

== ENCOUNTER 2025-04-27 13:05 | Outpatient (CLI) | payer MEDICARE, SELFPAY ==
--- NOTE | ~2025-04-27 | DEXA_ITS ---
Bone Density Report Name: YUAN CARVAJAL Age: 64 Sex: Female Ethnicity: White Date of : 1960 Indication: postmenopausal; screening for osteoporosis; hysterectomy; rheumatoid arthritis; Referring Provider: CATHERINE GARG Study: Bone densitometry was performed. Exam Date: April 27, 2025 Accession number: [id number] Bone Density: Region BMD T-score Z-score Classification AP Spine(L1-L4) 1.073 0.2 1.9 Normal Femoral Neck (Left) 0.776 -0.7 0.8 Normal Total Hip (Left) 0.909 -0.3 0.9 Normal Femoral Neck (Right) 0.819 -0.3 1.2 Normal Total Hip (Right) 0.935 -0.1 1.1 Normal Total Hip Mean 0.922 -0.2 1.0 Normal World Health Organization criteria for BMD impression classify patients as: Normal (T-score at or above -1.0), Osteopenia (T-score between -1.0 and -2.5), or Osteoporosis (T-score at or below -2.5). 10-year Fracture Risk: FRAX not reported because: All T-scores for Spine Total, Hip Total, Femoral Neck at or above -1.0 Previous Exams: -- Region Exam Age BMD T-score BMD Change BMD Change Date g/cm2 vs Baseline vs Previous -- AP Spine (L1-L4) 04/27/2025 64 1.073 0.2 -8.5%* -8.5%* 03/13/2023 62 1.172 1.1 Total Hip(Left) 04/27/2025 64 0.909 -0.3 -8.8%* -8.8%* 03/13/2023 62 0.997 0.4 Total Hip(Right) 04/27/2025 64 0.935 -0.1 -7.6%* -7.6%* 03/13/2023 62 1.013 0.6 -- *Denotes significance at 95% confidence level, LSC for AP Spine = 0.022 g/cm2, LSC for Total Hip = 0.027 g/cm2 Clinical Information Provided by Patient: Has rheumatoid arthritis Has used the following medications: Vitamin D, Calcium Has the following medical conditions: Hysterectomy Patient maximum height was 62.5 Menopause Age: 31 No regular weight bearing exercise Does not regularly consume dairy products Drinks caffeinated beverages Onset of menses at age 13 Number of children 3 Impression: The patient has normal bone mass. The BMD for the AP Spine (L1-L4) decreased, changing by -8.5% since the last DXA exam. The BMD for the Total Hip(Left) decreased, changing by -8.8% since the last DXA exam. The BMD for the Total Hip(Right) decreased, changing by -7.6% since the last DXA exam. Discussion: BONE DENSITY IS ABOVE THE MINIMUM DESIRABLE LEVEL AT ALL SKELETAL SITES TESTED. This patient?s bone mineral density is above the minimum desirable level (T-score -1.0 or better) at all sites measured. The patient should follow a healthful lifestyle (good nutrition with adequate calcium and vitamin D, and appropriate weight-bearing exercise). Follow-Up: Consider repeating this study in 3 to 4 years to reassess this patient's status, or sooner if there is some new clinical indication. Reported by: PRETTY on 04/27/2025 1:28:00 PM. Reviewed, dictated and finalized at location A.
== END 2025-04-27 13:06 | disposition home or self-care (01) ==
LOC: MICIMG 13:05
PROVIDERS: PCP Family Medicine
DX: Z78.0 Asymptomatic menopausal state (principal)
CPT/HCPCS: 77080